=== PATIENT | male | born 1970 | race Caucasian/White ===

== ENCOUNTER 2016-11-04 15:56 | Inpatient (IN) | payer MEDICAID ==
[~2016-11-04] VITALS: Ht 160 cm; Wt 64.4 kg
[2016-11-04 16:09] VITALS: BP 108/65; PULSE 82; RESP 16; TEMP 98; O2SAT 97
[2016-11-04] MEDS ORDERED: NACL 0.9% 1,000 ML IV ONE (16:30)
--- NOTE | 2016-11-04 16:30 | NUR ---
PT BROUGHT HERE FROM [facility] FOR MALFUNCTIONING GT. NO REDNESS NOTED AROUND GT SITE. PT NON VERBAL WITH A TRACH AND 02 2L VIA TRACH. NO DISTRESS. PT EXTREMITIES RIGID. FAMILY WITH PT.
[2016-11-04] MEDS ORDERED: GASTROGRAFIN 120 ML ONE (16:35)
[2016-11-04 16:37] LABS: BASOPHILS % (AUTO) 0.6 % (0.0-2.0); EOSINOPHILS # (AUTO) 0.1 K/uL (0.0-0.4); EOSINOPHILS % (AUTO) 4.3 % (0.0-4.0); HEMATOCRIT 30.7 % (36-54); HEMOGLOBIN 9.4 g/dL (14.0-18.0); LYMPHOCYTES # (AUTO) 0.3 K/uL (1.0-5.5); LYMPHOCYTES % (AUTO) 11.2 % (20.5-51.5); MEAN CORPUSCULAR HEMOGLOBIN 27 pg (27-31); MEAN CORPUSCULAR HGB CONC 31 % (32-36); MEAN CORPUSCULAR VOLUME 88 fL (79.0-98.0); MONOCYTES # (AUTO) 0.2 K/uL (0.0-1.0); MONOCYTES % (AUTO) 8.5 % (1.7-9.3); NEUTROPHILS # (AUTO) 2.1 K/uL (1.8-7.7); NEUTROPHILS % (AUTO) 75.4 % (40.0-70.0); RED CELL DISTRIBUTION WIDTH 19.7 % (9.0-15.0)
--- NOTE | 2016-11-04 16:50 | NUR ---
JT IRRIGATED WITH WATER AND LEAKING NOTED AROUND SKIN. ER MADE AWARE.
[2016-11-04 16:56] LABS: CALCIUM 8.5 mg/dL (8.4-11.0); CREATININE 0.45 mg/dL (0.55-1.30); POTASSIUM 3.7 mmol/L (3.5-5.1)
--- NOTE | 2016-11-04 17:00 | NUR ---
20G IV STARTED TO LEFT FOREARM. IVF STARTED.
[2016-11-04 17:04] LABS: PLATELET COUNT (AUTO) 43 K/uL (130-430)
[2016-11-04 17:05] LABS: WHITE BLOOD COUNT (AUTO) 2.7 K/uL (4.8-10.8)
[2016-11-04 17:07] LABS: INR 1.2 (0.80-1.20); PROTHROMBIN TIME 12.8 SECS (9.5-12.5)
[2016-11-04] MEDS ORDERED: NACL 0.9% 2,000 ML IV ONE (17:15)
[2016-11-04 17:17] LABS: ALBUMIN 2.1 g/dL (3.4-4.8); TOTAL BILIRUBIN 0.7 mg/dL (0.0-1.0); TOTAL PROTEIN, SERUM 8.2 g/dL (6.4-8.3)
--- NOTE | 2016-11-04 18:25 | NUR ---
PT TRANSFERED TO ROOM [facility] VIA AVILA BOO. REPORT GIVEN TO KAREN. Addendum: 11/04/16 at 2021 by KASHMIR THE ONLY BELONGING THE PT HAS IS A SMALL PILLOW.
--- NOTE | 2016-11-04 18:45 | NUR ---
ADMISSION NOTE Received patient from ER via rosa, received report from juan JONES. Patient admitted with diagnosis of dehydration, hypernatremia. Patient oriented to hospital routine, call light, toileting and safety-patien.
--- NOTE | 2016-11-04 18:48 | NUR ---
CONSULTATION PAGED REASON FOR CONSULTATION:GT MALFUNCTION WAS CONSULT CALLED?Y PERSON WHO WAS NOTIFIED:MICHAEL CONSULTING PHYSICIAN:SACHA RAYMUNDO BOTTOM SCRUBBER SPECIALTY:SURGEON BOTTOM SCRUBBER PHONE NUMBER:[phone]
[2016-11-04 19:00] VITALS: PULSE 90; RESP 18; TEMP 97.2; O2SAT 92
[2016-11-04] MEDS: D5LR 1,000 ML IV SCH (19:45)
[2016-11-04 20:00] VITALS: BP 115/70; PULSE 90; RESP 18; TEMP 97.6; O2SAT 94
--- NOTE | 2016-11-04 20:00 | NUR ---
Initial Notes and MD communication Received patient from Rito, admission nurse, patient resting in bed, awake, nonverbal, confused, family at bedside. Patient appears in no acute distress or pain. Patient has trach, breathing even and unlabored on 2L via T-bar. IV site to left forearm #20 from ER, patent/clean/dry. J-tube noted to have been removed, laying at bedside. Dressing applied over abdominal opening, minimal drainage noted. Skin tears noted to sacral, left leg, and right back, photos taken and charted. Incontinence care provided, patient repositioned for comfort. Educated family on use of call light and fall precautions, all verbalized understanding, patient unable. Call light in hand, will continue to monitor. Spoke with Dr. Steiner on phone, updated MD on patient's background and status. Made MD aware that J-tube is removed, dressing applied. MD will see patient in the morning.
[2016-11-04] MEDS ORDERED: PHYTONADIONE 10 MG/ML AMP SUBCUT ONE (21:00)
[2016-11-04] MEDS ORDERED: levETIRAcetam 500 MG in NS 100 ML IV SCH (21:00)
[2016-11-04] MEDS ORDERED: DEXTROSE 50% JECT 50 ML DISP.SYRIN IVP PRN (21:00)
[2016-11-04] MEDS ORDERED: LORazepam 2 MG/ML VIAL IVP PRN (21:00)
[2016-11-04] MEDS ORDERED: INSULIN REGULAR, HUMAN 100 UNITS/ML, 10 ML VIAL (novoLIN R) SUBCUT PRN (21:00)
--- NOTE | 2016-11-04 21:00 | NUR ---
Seizure Precautions Side rails padded.
[2016-11-04] MEDS ORDERED: hydrALAZINE HCL 20 MG/ML VIAL IVP PRN (21:15)
[2016-11-04] MEDS ORDERED: levETIRAcetam 1,000 MG in NS 100 ML IV ONE (21:30)
--- NOTE | 2016-11-04 22:00 | NUR ---
Rounds Patient resting in bed, family at bedside. No change in patient's mentation. No acute distress or pain noted. IV site patent/clean/dry. Patient repositioned for comfort. Needs addressed. Call light in hand, will continue to monitor. Dr. Rodrigues saw patient recently, made aware that patient no longer has j-tube, MD said he was aware.
[2016-11-04 23:11] VITALS: BP 118/60; PULSE 79
[2016-11-04 23:27] VITALS: BP 104/63; PULSE 86; RESP 20; TEMP 98.2; O2SAT 97
--- NOTE | 2016-11-05 | NUR ---
Rounds Patient resting in bed with eyes closed. No acute distress noted, breathing even and unlabored. IV site patent/clean/dry. Call light in hand, fall precautions in place. Will continue to monitor.
--- NOTE | 2016-11-05 02:00 | NUR ---
Rounds Patient resting in bed with eyes open. No distress noted, breathing even and unlabored. IV site patent/clean/dry. Repositioned for comfort. Call light in hand, will continue to monitor.
[2016-11-05] MEDS: D5LR 1,000 ML IV SCH ×2 (02:31→08:57)
[2016-11-05] MEDS ORDERED: NOR10 GT (03:38)
[2016-11-05] MEDS ORDERED: TERA10CA47 GT (03:38)
[2016-11-05] MEDS ORDERED: HEPA500014 SUBCUT (03:38)
[2016-11-05] MEDS ORDERED: GABA-531 GT (03:38)
[2016-11-05] MEDS ORDERED: CHLO473M5 MM (03:38)
[2016-11-05] MEDS ORDERED: FAMO40TA7 GT (03:38)
[2016-11-05] MEDS ORDERED: LACO200T2 GT (03:38)
[2016-11-05] MEDS ORDERED: LEVO100T9 GT (03:38)
[2016-11-05] MEDS ORDERED: THIA50TA2 GT (03:38)
[2016-11-05] MEDS ORDERED: LEVE1000 PO (03:38)
--- NOTE | 2016-11-05 04:00 | NUR ---
Rounds Patient resting in bed, awake. No acute distress noted, breathing even and unlabored. IV site patent/clean/dry. Incontinence care provided, patient repositioned for comfort. Call light in hand, fall precautions in place. Will continue to monitor.
[2016-11-05 04:20] VITALS: BP 111/57; PULSE 97; RESP 18; TEMP 98.9; O2SAT 94
--- NOTE | 2016-11-05 06:27 | NUR ---
Closing Notes Patient resting in bed, awake. No change in mentation. Patient in no acute distress. Breathing even and unlabored on 2L via T-bar. IV site patent/clean/dry. Seizure precautions in place. Needs addressed throughout shift. Call light in hand, fall precautions in place. Will continue to monitor for changes and safety, and endorse all patient care/needs to oncoming nurse.
[2016-11-05 07:06] LABS: BASOPHILS % (AUTO) 0.3 % (0.0-2.0); EOSINOPHILS # (AUTO) 0.1 K/uL (0.0-0.4); EOSINOPHILS % (AUTO) 5.3 % (0.0-4.0); HEMATOCRIT 30.8 % (36-54); HEMOGLOBIN 9.6 g/dL (14.0-18.0); LYMPHOCYTES # (AUTO) 0.4 K/uL (1.0-5.5); MEAN CORPUSCULAR HEMOGLOBIN 27 pg (27-31); MEAN CORPUSCULAR HGB CONC 31 % (32-36); MEAN CORPUSCULAR VOLUME 88 fL (79.0-98.0); MONOCYTES # (AUTO) 0.2 K/uL (0.0-1.0); MONOCYTES % (AUTO) 8.4 % (1.7-9.3); NEUTROPHILS # (AUTO) 1.9 K/uL (1.8-7.7); PLATELET COUNT (AUTO) 57 K/uL (130-430); RED BLOOD CELL COUNT(AUTO) 3.49 MIL/uL (4.2-6.2); RED CELL DISTRIBUTION WIDTH 20.6 % (9.0-15.0); WHITE BLOOD COUNT (AUTO) 2.6 K/uL (4.8-10.8)
[2016-11-05 07:32] LABS: INR 1.1 (0.80-1.20); PROTHROMBIN TIME 12.4 SECS (9.5-12.5)
[2016-11-05 07:44] LABS: ALBUMIN 2.1 g/dL (3.4-4.8); CALCIUM 8.5 mg/dL (8.4-11.0); CREATININE 0.51 mg/dL (0.55-1.30); POTASSIUM 3.3 mmol/L (3.5-5.1); THYROID STIMULATING HORMONE 3.96 uIu/mL (0.34-4.82); TOTAL BILIRUBIN 0.9 mg/dL (0.0-1.0); TOTAL PROTEIN, SERUM 7.9 g/dL (6.4-8.3)
[2016-11-05 07:57] LABS: IRON (SERUM) 32 mcg/dL (59-158); TOTAL IRON BIND. CAPACITY 256 ug/dL (250-450)
[2016-11-05 08:00] VITALS: BP 122/69; PULSE 106; RESP 36; TEMP 99; O2SAT 93
--- NOTE | 2016-11-05 08:00 | NUR ---
RN NOTES PT SEEN IN BED, NO SOB, NO DISTRESS, PT TACHYPNEIC AT 36, NO S/SX PAIN. BM NOTED AND CLEAN AND CHANGED. YELLOW URINE NOTED. NO G-TUBE, L ARM SWOLLEN BUT IV FLUSHED GOOD AND WITH GOOD BLOOD RETURN.
[2016-11-05] MEDS: levETIRAcetam 1,000 MG in NS 100 ML IV SCH ×2 (08:56→21:43)
--- NOTE | 2016-11-05 10:00 | NUR ---
NOTES PT IN BED, FAMILY AT BEDSIDE. SUNCTION VIA TRACH DUE TO SECRETION, NO DISTRESS, NO S/SX PAIN.
--- NOTE | 2016-11-05 10:15 | NUR ---
Nutrition Update Tejas Scale 11 noted. Pt admitted for dehydration, hypernatremia. Diet: NPO BMI: 25.3 kg/m2 RD to follow per nutrition care standards.
--- NOTE | 2016-11-05 10:26 | NUR ---
Consult Called Reason for consultation: GTUBE DISPLACEMENT Was consult called: Y Person who was notified: Aleta Consulting Physician: JESUS ALBERTO VILLALPANDO MD ORDER BY: VERONICA COATES MD
[2016-11-05] MEDS ORDERED: CEFAZOLIN 1 GM IVPB PREMIX 50 ML IV ONE (11:30)
--- NOTE | 2016-11-05 12:00 | NUR ---
NOTES: PT IN BED DR VILLALPANDO SEEN PT AND CHECKED G-TUBE SITE, MD UNABLE INSERT G-TUBE. PT IS STABLE. NO S/SX PAIN. NO DISTRESS
[2016-11-05 12:15] VITALS: BP 129/75; PULSE 117; RESP 19; TEMP 98.6; O2SAT 96
[2016-11-05] MEDS ORDERED: MVI 10 ML in D5LR 1,000 ML IV SCH (12:45)
[2016-11-05] MEDS ORDERED: POTASSIUM CHLORIDE 40 MEQ, LIDOCAINE JECT 2% PF 100 MG 50 MG in NS 250 ML IV ONE (13:30)
--- NOTE | 2016-11-05 14:20 | NUR ---
PT INSERTED ON R UA. PT TOLERATED WELL. NO BLEEDING NOTED. 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 Addendum: 11/05/16 at 1946 by Sarath Cooper RN FIRST SENTENCE SHOULD READ" PICC INSERTED ON R UA."
--- NOTE | 2016-11-05 14:21 | NUR ---
DC PLANNING:S/W the pt.'s sister, Dorinda at bedside. She requested transferring the pt.to [facility] in [place] instead of [facility]. This dues to [facility] is too far for family home. His father could not see the pt. as often. [facility] is about 10 mins from home. Dorinda made aware that the pt. may have to return back to [facility] if [facility] is not acceptting, the pt.[facility]# [phone] fax#[phone] address:[address] [place], [place] [id number]. A call to [facility] and spoke with Leora , admitting dept stated" she remembered the pt.and requested the referral faxed to her. Also mentionning that there is no bed in [facility] today but might be next week.
--- NOTE | 2016-11-05 14:56 | NUR ---
Consult called Reason for consultation: RF person who was notified: Stefania Consulting Physician: Sally Marshall Order by: Mariposa Rodrigues MD
[2016-11-05] MEDS: SOD FERRIC GLUC COMPLEX/SUC 125 MG in NS 100 ML IV SCH (16:00)
--- NOTE | 2016-11-05 16:00 | NUR ---
PT MEDICATIONS GIVEN VIA PIC, PT SUCTION AND ORAL CARE DONE. FAMILY AT BEDSIDE.
[2016-11-05 16:56] VITALS: BP 115/63; PULSE 104; RESP 18; TEMP 99.4; O2SAT 96
[2016-11-05] MEDS: MVI 10 ML in D5LR 1,000 ML IV SCH (17:11)
--- NOTE | 2016-11-05 18:00 | NUR ---
PT IN BED, NO SOB, NO DISTRESS, NO S/SX PAIN. IV FLUID RUNNING WELL.
--- NOTE | 2016-11-05 20:00 | NUR ---
OPENING ASSESSMENT PT. NO RESPONSE TO VERBAL COMMAND. NO GRIMACING. NO PAIN NOTED. ON O2 TO TRACH T-BAR 2 LITERS. 02 SAT 96%. NO SOB NOTED. SUCTIONING MODERATE AMOUNTS OF THICK WHITE SECRETIONS.. HAS PICC LINE TO SERGIO. PATENT. SITE IS CLEAR. INCONTINENT OF STOOL AND URINE. NO DISTRESS NOTED @ THIS TIME.
[2016-11-05 20:10] VITALS: BP 125/79; PULSE 100; RESP 18; TEMP 99.9; O2SAT 96
--- NOTE | 2016-11-05 21:00 | NUR ---
BLOOD SUGAR 134 NO COVERAGE REQUIRED.
--- NOTE | 2016-11-05 22:00 | NUR ---
LAB. CALLED. STATED PATIENT HAS POSITIVE ANTIBODIES BLOOD. IS ORDERING PLATELETS DUE @ 0600.
[2016-11-05 23:46] VITALS: BP 133/75; PULSE 94; RESP 20; TEMP 98.6; O2SAT 94
--- NOTE | 2016-11-06 00:05 | NUR ---
NOTES PATIENT SUCTIONS MODERATE AMOUNTS OF THICK BLOOD TINGED SECRETIONS VIA. TRACH
[2016-11-06] MEDS: MVI 10 ML in D5LR 1,000 ML IV SCH ×2 (01:11→21:31)
--- NOTE | 2016-11-06 03:10 | NUR ---
NOTES C-DIFF SENT TO LAB. RE. TO DIARRHEA. MRSA NARES ALSO SENT TO LAB.
[2016-11-06 03:49] VITALS: BP 128/72; PULSE 102; RESP 20; TEMP 99.4; O2SAT 94
--- NOTE | 2016-11-06 05:00 | NUR ---
CHG BATH LOOSE STOOL, BATH AND LINEN CHANGED.
--- NOTE | 2016-11-06 06:00 | NUR ---
PLATES PLATES GIVEN ORDERED. NO ADVERSE REACTION NOTED.
--- NOTE | 2016-11-06 06:30 | NUR ---
CLOSING NOTES SUCTIONED MODERATE AMOUNTS OF THICK BROWN SECRETIONS VIA. TRACH. CONTINUE ON T-BAR 2LITER. NO DISTRESS NOTED @ THIS TIME.
[2016-11-06 07:14] LABS: BASOPHILS % (AUTO) 0.4 % (0.0-2.0); EOSINOPHILS # (AUTO) 0.1 K/uL (0.0-0.4); EOSINOPHILS % (AUTO) 4.8 % (0.0-4.0); HEMATOCRIT 31.7 % (36-54); LYMPHOCYTES # (AUTO) 0.6 K/uL (1.0-5.5); LYMPHOCYTES % (AUTO) 20.5 % (20.5-51.5); MEAN CORPUSCULAR HEMOGLOBIN 28 pg (27-31); MEAN CORPUSCULAR HGB CONC 32 % (32-36); MEAN CORPUSCULAR VOLUME 88 fL (79.0-98.0); MONOCYTES # (AUTO) 0.3 K/uL (0.0-1.0); MONOCYTES % (AUTO) 8.9 % (1.7-9.3); NEUTROPHILS # (AUTO) 1.9 K/uL (1.8-7.7); PLATELET COUNT (AUTO) 55 K/uL (130-430); RED BLOOD CELL COUNT(AUTO) 3.62 MIL/uL (4.2-6.2); RED CELL DISTRIBUTION WIDTH 20.1 % (9.0-15.0); WHITE BLOOD COUNT (AUTO) 2.9 K/uL (4.8-10.8)
[2016-11-06 07:27] LABS: INR 1.2 (0.80-1.20); PROTHROMBIN TIME 12.7 SECS (9.5-12.5)
--- NOTE | 2016-11-06 07:40 | NUR ---
AM ROUNDS, CHANGE OF SHIFT pt. awake, non-verbal,unable to follow commands, pt. with trach on T-bar @ 2l O2, HOB elevated. IVF via rt. forearm with PICC line double lumen . pt. incontinent of urine and stool.call light within reach.
[2016-11-06 07:46] LABS: ALBUMIN 2.2 g/dL (3.4-4.8); CALCIUM 8.4 mg/dL (8.4-11.0); CREATININE 0.5 mg/dL (0.55-1.30); POTASSIUM 3.8 mmol/L (3.5-5.1); TOTAL BILIRUBIN 1.1 mg/dL (0.0-1.0); TOTAL PROTEIN, SERUM 8.2 g/dL (6.4-8.3)
[2016-11-06 08:30] VITALS: BP 129/71; PULSE 93; RESP 24; TEMP 99.1; O2SAT 99
[2016-11-06] MEDS: levETIRAcetam 1,000 MG in NS 100 ML IV SCH ×2 (09:08→21:05)
--- NOTE | 2016-11-06 09:22 | NUR ---
scheduled med given. suctioned via trach.
--- NOTE | 2016-11-06 10:30 | NUR ---
DISCHARGE PLANNING Called [facility] [phone] spoke with Baylee in admitting facility unable to accept patient due to facility being full.
--- NOTE | 2016-11-06 11:00 | NUR ---
pt. checked, condition unchanged.
[2016-11-06] MEDS ORDERED: CEFAZOLIN 1 GM IVPB PREMIX 50 ML IV ONE (11:30)
[2016-11-06 11:39] LABS: NEUTROPHILS % (AUTO) 65.4 % (40.0-70.0)
[2016-11-06] MEDS: SOD FERRIC GLUC COMPLEX/SUC 125 MG in NS 100 ML IV SCH (12:55)
[2016-11-06 13:06] VITALS: BP 117/78; PULSE 97; RESP 18; TEMP 99; O2SAT 97
--- NOTE | 2016-11-06 13:31 | NUR ---
pt. sleeping when made rounds.
[2016-11-06 14:01] VITALS: Ht 160 cm; Wt 64.4 kg
--- NOTE | 2016-11-06 14:21 | NUR ---
NPO: schedule for PEG placement this afternoon, IVF infusing.
--- NOTE | 2016-11-06 15:23 | NUR ---
pt.transferred to air loss mattress with 2 GAGE DESIGNER , Stephie and myself. checked coccyx area with little patches of skin excoriation on rt.side, Z-guard cream applied, pt. repositioned and suctioned via trach.noted dressing on left lower leg and left Addendum: 11/06/16 at 1527 by Randi Rosales RN left hand.
--- NOTE | 2016-11-06 15:27 | NUR ---
PEG PLACEMENT: DR ALVARADO CAME AND TIME OUT DONE AT BEDSIDE. VERSED 0.5MG IVP GIVEN.VITAL SIGNS MONITORED.STABLE.
--- NOTE | 2016-11-06 15:40 | NUR ---
END TIME: PEG PLACEMENT UNSUCCESSFUL PER DR ALVARADO. DR ALVARADO SPOKE TO DAUGHTER FERNANDA AT BEDSIDE AND EXPLAINED WHY PEG WAS UNSUCCESSFUL. VITAL SIGNS MONITORED,WITHIN NORMAL LIMIT. CONTINUE TO MONITOR.
[2016-11-06 16:02] LABS: FOLATE (FOLIC ACID) 11.9 ng/mL (>3.0)
[2016-11-06] MEDS ORDERED: fentaNYL CITRATE/PF 100 MCG/2 ML AMP ONE (16:30)
--- NOTE | 2016-11-06 16:30 | NUR ---
TEJAS SCALE EVALUATION: Patient evaluated for a low Tejas score of 10. Patient was awake, alert, non-verbal, non-responsive to verbal commands, and received in a [place] bed with an Atmos-Air 9000 mattress. Patient is unable to turn independently. Skin is fair; Buttocks have redness from IAD; Closed bulla present on left foot and left thigh. Recommend reposition patient side to side only every 2 hours with pillow support and off-load pressure areas with pillows for pressure re-distribution. Elevate, off-load and float bilateral heels with pillows. Use moisture barrier cream on buttocks and other moisture susceptible areas QID and as needed for soiling. Perform skin care and monitor skin integrity Q shift. Place patient on a low air-loss mattress.
[2016-11-06] MEDS ORDERED: MIDAZOLAM HCL 5 MG/5 ML VIAL ONE (16:31)
[2016-11-06 17:15] VITALS: BP 124/71; PULSE 91; RESP 18; TEMP 99; O2SAT 97
--- NOTE | 2016-11-06 18:30 | NUR ---
condition unchanged. IVF infusing, trach intact on T-Bar, suction prn. repositioned every 2 hours. nurse Stephie will endorse pt. on change of shift.
[2016-11-06 20:00] VITALS: BP 125/77; PULSE 83; RESP 19; TEMP 97.5; O2SAT 96
--- NOTE | 2016-11-06 20:00 | NUR ---
PM Shift Assessment Received patient lying on low air loss mattress, non-verbal but tracks with eyes, no acute respiratory distress noted. Patient noted with trach to T-bar at 2L/min and tolerating well, O2 saturation 96%. Assessment complete, vital signs stable. SERGIO noted with PICC line, flushes well, dressing clean dry and intact, no redness or swelling noted. Seizure pads noted to bilateral side rails for safety. Bilateral heel lift boots in place. Sacral redness noted, patient repositioned with pillow support. Multiple blisters noted, see assessment documentation. Plan of care updated on board, will reinforce with family when at bedside. Call light is within reach with soft music for comfort. All fall and safety precautions in place, will continue to monitor closely for change in patient status.
--- NOTE | 2016-11-06 22:18 | NUR ---
RN Rounds Patient is resting quietly in bed, no acute distress noted, tolerating T-bar at 2L/min well. Patient was cleaned and repositioned in bed with pillow support. Oral care provided for comfort. Scheduled medications administered as ordered per MD. Call light is within reach with soft music for audio stimulation. All fall and safety precautions in place, will continue to monitor closely.
[2016-11-07] VITALS (13 sets, daily range): BP systolic 120–142; BP diastolic 73–88; PULSE 83–112; RESP 16–22; TEMP 96.8–98.1; O2SAT 94–99
--- NOTE | 2016-11-07 00:08 | NUR ---
paged for Dr Rodrigues, dialed . s/w Reji.
--- NOTE | 2016-11-07 00:10 | NUR ---
PAGED PAGED VERONICA CAMPBELL AT [phone] SPOKE WITH FIDENCIO.
--- NOTE | 2016-11-07 00:21 | NUR ---
RN Rounds Patient is resting quietly in bed, no acute respiratory distress noted, tolerating t-bar well. Patient was repositioned and made comfortable in bed, oral care provided for comfort. All fall and safety precautions in place, will continue to monitor closely.
--- NOTE | 2016-11-07 02:15 | NUR ---
RN Rounds Patient is resting quietly in bed with eyes closed, easily arousable, no acute respiratory distress noted. Tracheal suction provided. Patient made comfortable in bed. All fall and safety precautions in place, will continue to monitor closely.
--- NOTE | 2016-11-07 04:32 | NUR ---
RN Rounds Patient is resting quietly in bed with eyes closed, easily arousable, no acute respiratory distress noted. Patient sound congested with O2 saturation 88%. Tracheal suction provided, O2 saturation now 94%. Patient made comfortable in bed. All fall and safety precautions in place, will continue to monitor closely.
--- NOTE | 2016-11-07 06:15 | NUR ---
paged for Dr Steiner, dialed . s/w [facility].
--- NOTE | 2016-11-07 06:23 | NUR ---
MD Called Spoke with Dr Steiner informed him that patient does not have a UA, orders received for straight cath to collect UA. Also informed him that Patient does not have IV fluids and blood sugar is 91, new orders received for D5NS at 75mL/hour. Orders noted and to be carried out.
--- NOTE | 2016-11-07 06:50 | NUR ---
Platelet Transfusion Initiation Consent signed agreeing to administration of blood and blood products. Platelets sent from blood bank. Information on unit of platelets checked against patient wristband at bedside by two nurses. All information matches. Patient or responsible republican informed of potential complications associated with blood transfusion. Informed of possible transfusion reaction symptoms. Aware of need to notify nurse at once of itching, shortness of breath, flushing, feeling of impending doom, or other symptoms not previously present. Vital signs taken within 5 minutes prior to initiation of transfusion. RN will remain with patient for first 15 minutes of transfusion at which time vital signs will be re-assessed.
[2016-11-07] MEDS: D5NS 1,000 ML IV SCH (06:59)
--- NOTE | 2016-11-07 07:10 | NUR ---
Closing Notes Patient is resting quietly in bed, no acute respiratory distress or adverse transfusion reaction noted. Platelets infusing well to SERGIO PICC. Patient is stable, all needs met throughout shift. SBAR report was endorsed to AM nurse at bedside.
--- NOTE | 2016-11-07 07:15 | NUR ---
AM Rounds: Received pt sitting semi-fowlers in bed. No acute signs of distress noted. Trach and t-bar in place, pt saturating well 94% on 2L. Pt is alert and able to track with eyes at times, nonverbal at this time. IV PICC intact to RUE with no redness or swelling noted to site, infusing platelets well. Dressing to left abdomen CDI. Bilateral heel protectors in place. Call light in reach. Aspiration and pressure ulcer precautions in place. No other needs noted at this time. Pt remains NPO for GT placement today. Continue to monitor.
--- NOTE | 2016-11-07 07:20 | NUR ---
Nutrition Note Nutrition Consult (Tejas Score of 10) received 11/06/162041. Pt was seen and assessed by RD on 11/06/16. Please refer to Nutrition Assessment 11/06/[address] to continue to follow per nutrition care standards.
[2016-11-07 08:21] LABS: BILIRUBIN,URINE NEGATIVE (NEGATIVE); CLARITY/URINE CLEAR (CLEAR); COLOR,URINE YELLOW (YELLOW); GLUCOSE,URINE NEGATIVE (NEGATIVE); KETONES,URINE NEGATIVE (NEGATIVE); PROTEIN URINE NEGATIVE (NEGATIVE)
[2016-11-07 08:22] LABS: BLOOD, URINE NEGATIVE (NEGATIVE); LEUKOCYTE ESTERASE ,URINE NEGATIVE (NEGATIVE); NITRITE, URINE POSITIVE (NEGATIVE); UROBILINOGEN,URINE 0.2 (0.2-1.0)
[2016-11-07 08:23] LABS: BACTERIA,URINE FEW /HPF (None Seen); MUCUS,URINE 1+ /LPF (None Seen); RBC,URINE 0-3 /HPF (0-3); WBC,URINE 0-3 /HPF (0-3)
[2016-11-07] MEDS: PANTOPRAZOLE SODIUM 40 MG/VIAL (PROTONIX) IVP SCH (08:41)
[2016-11-07] MEDS: levETIRAcetam 1,000 MG in NS 100 ML IV SCH ×2 (08:42→21:33)
--- NOTE | 2016-11-07 09:10 | NUR ---
RN Rounds: AM meds given per MD order. No acute signs of distress noted. Pt tolerates well. Call light in reach. Continue to monitor.
--- NOTE | 2016-11-07 10:20 | NUR ---
Pt off to OR: Pt off to OR for procedure. No acute signs of distress noted.
[2016-11-07] MEDS ORDERED: NACL 0.9% 1,000 ML IV SCH (10:41)
[2016-11-07] MEDS ORDERED: ONDANSETRON HCL 4 MG/2 ML VIAL IVP PRN (10:45)
[2016-11-07] MEDS ORDERED: HYDROmorphone 1 MG INJ. 1 MG/ML AMPUL IVP PRN (10:45)
[2016-11-07] MEDS ORDERED: ePHEDrine sulfate 50 MG/ML VIAL IVP PRN (10:45)
[2016-11-07] MEDS ORDERED: MEPERIDINE HCL/PF 25 MG/ML DISP.SYRIN IVP PRN ×2 (10:45)
[2016-11-07] MEDS ORDERED: HYDROmorphone 2 MG/ML VIAL IVP PRN ×2 (10:45)
--- NOTE | 2016-11-07 13:05 | NUR ---
Pt Return from OR: Vent and trach in place. Pt tolerate settings well. No acute signs of distress noted. IV fluids infusing well to RUE. Dressing to abdomen CDI and GT clamped. Call light in reach. Page Dr. Marshall to make aware that pt is on a vent. Continue to monitor.
[2016-11-07] MEDS: SOD FERRIC GLUC COMPLEX/SUC 125 MG in NS 100 ML IV SCH (13:13)
--- NOTE | 2016-11-07 13:51 | NUR ---
Dr. Marshall: Dr. Marshall aware that pt is on a vent per Dr. Doherty for the next [address] Marshall states "Ok I'll come see him later."
[2016-11-07] MEDS ORDERED: ROCURONIUM BROMIDE 10 MG/ML (ZEMURON) ONE (14:00)
[2016-11-07] MEDS ORDERED: LR 1,000 ML IV.SOLN IV ONE (14:00)
[2016-11-07] MEDS ORDERED: NS IRRIG SOLN 1000 ML IR ONE (14:00)
[2016-11-07] MEDS ORDERED: SEVOFLURANE 15 MIN GAS INH ONE (14:00)
[2016-11-07] MEDS ORDERED: PROPOFOL 200MG/ 20ML VIAL (DIPRIVAN) IV ONE (14:00)
[2016-11-07] MEDS ORDERED: fentaNYL CITRATE/PF 100 MCG/2 ML AMP ONE (14:00)
[2016-11-07] MEDS ORDERED: CEFAZOLIN 2 GM IVPB PREMIX 50 ML IV ONE (14:00)
[2016-11-07] MEDS: MVI 10 ML in D5LR 1,000 ML IV SCH (14:54)
--- NOTE | 2016-11-07 15:13 | NUR ---
Rounds: Pt sitting semi-fowlers in bed. No acute signs of distress noted at this time. IV intact to RUE PICC infusing fluids well. Call light in reach. Aspiration precautions in place. Vent and trach in place, Dr. Marshall here to see patient. Continue to monitor pt closely.
[2016-11-07 16:58] LABS: IRON (SERUM) 229 mcg/dL (59-158); TOTAL IRON BIND. CAPACITY 218 ug/dL (250-450)
--- NOTE | 2016-11-07 17:09 | NUR ---
Rounds: Pt sitting semi-fowlers in bed. No acute signs of distress noted. IV intact to RUE with no redness or swelling noted to site. Call light in reach. Blood sugar checked and no coverage given. Continue to monitor.
--- NOTE | 2016-11-07 18:48 | NUR ---
Closing Note: Pt sitting semi-fowlers in bed. No acute signs of distress noted. GT in place and clamped. Bowel sounds present and hypoactive. Dressing to abdomen CDI. Trach and vent in place. Call light in reach. Aspiration, fall, and pressure ulcer precautions in place. No other needs noted at this time. Endorse plan of care to BOOGIE RN.
--- NOTE | 2016-11-07 19:30 | NUR ---
OPENING NOTES RE CEIVED REPORT AT BEDSIDE FROM DAY SHIFT NURSE. PATIENT IS SHOWING NO SIGNS OR SYMPTOMS OF DISTRESS. PATIENT IN SEMI-FOWLERS ON VENT. PICC LINE PATENT AND RUNNING. OXYGEN SATURATION IS 99%. SEIZURE PRECAUTIONS IN PLACE. BED [id number] POSITION. BED ALARM ON. WILL CONTINUE TO MONITOR FREQUENTLY.
--- NOTE | 2016-11-07 21:30 | NUR ---
NOTES PATIENT IS RESTING COMFORTABLY. NO SIGNS OR SYMPTOMS OF DISTRESS NOTED. VENTILATOR SETTINGS ARE AC 10, FIOS2, 45 TV 600ML, PEEP 5. IV IS PATENT. BED IN LOWEST POSITION, BED ALARM ON, CALL LIGHT WITHIN REACH. WILL CONTINUE TO MONITOR.
--- NOTE | 2016-11-07 23:30 | NUR ---
NOTES PATIENT CONTINUES TO REST PEACFULLY. NO SIGNS OR SYMPTOMS OF DISTRESS NOTED. IV PATENT, FLUIDS RUNNING, NO SIGNS OR SYMPTOMS OF INFILTRATION NOTED. BED IN LOWEST POSITION, BED ALARM ON, CALL LIGHT WITHIN REACH.
[2016-11-08] VITALS (11 sets, daily range): BP systolic 122–144; BP diastolic 81–92; PULSE 95–109; RESP 15–22; TEMP 97.4–98.3; O2SAT 96–99
--- NOTE | 2016-11-08 01:30 | NUR ---
NOTES PATIENT CONTINUES TO SLEEP COMFORTABLY. NO SIGNS OR SYMPTOMS OF DISTRESS NOTED. VENT SETTINGS CHECKED AND CONFIRMED. IV PATENT, FLUIDS RUNNING, NO SIGNS OR SYMPTOMS OF INFILTRATION NOTED. SEIZURE PRECAUTIONS IN PLACE. BED IN LOWEST POSITION, BED ALARM ON, CALL LIGHT WITHIN REACH.
[2016-11-08] MEDS: D5NS 1,000 ML IV SCH ×2 (02:23→09:10)
--- NOTE | 2016-11-08 06:38 | NUR ---
CLOSING NOTE PATIENT IS SLEEPING COMFORTABLY. NO SIGNS OR SYMPTOMS OF DISTRESS NOTED. VISIBLE RISE AND FALL OF CHEST. SEIZURE AND FALL PRECAUTIONS IN PLACE. IV PATENT, NO SIGNS OF INFILTRATION. BED IN LOWEST POSITION, BED ALARM ON, CALL LIGHT WITHIN REACH. WILL ENDORSE CARE TO DAY SHIFT NURSE.
--- NOTE | 2016-11-08 07:37 | NUR ---
AM Rounds: Received pt sitting semi-fowlers in bed. No acute signs of distress noted. IV intact to RUE PICC with no redness or swelling noted to site. GT clamped to abdomen. Vent and trach in place. Aspiration precautions in place. Continue to monitor.
[2016-11-08 07:45] LABS: ALBUMIN 2.1 g/dL (3.4-4.8); CALCIUM 8.1 mg/dL (8.4-11.0); CREATININE 0.5 mg/dL (0.55-1.30); POTASSIUM 3.2 mmol/L (3.5-5.1); TOTAL BILIRUBIN 1.6 mg/dL (0.0-1.0); TOTAL PROTEIN, SERUM 7.5 g/dL (6.4-8.3)
[2016-11-08 07:46] LABS: INR 1.3 (0.80-1.20)
[2016-11-08 08:19] LABS: BASOPHILS % (AUTO) 0.2 % (0.0-2.0); EOSINOPHILS # (AUTO) 0.2 K/uL (0.0-0.4); EOSINOPHILS % (AUTO) 4.7 % (0.0-4.0); HEMATOCRIT 32.3 % (36-54); HEMOGLOBIN 10.2 g/dL (14.0-18.0); LYMPHOCYTES # (AUTO) 0.4 K/uL (1.0-5.5); LYMPHOCYTES % (AUTO) 10.9 % (20.5-51.5); MEAN CORPUSCULAR HEMOGLOBIN 27 pg (27-31); MEAN CORPUSCULAR HGB CONC 32 % (32-36); MEAN CORPUSCULAR VOLUME 87 fL (79.0-98.0); MONOCYTES # (AUTO) 0.4 K/uL (0.0-1.0); MONOCYTES % (AUTO) 8.8 % (1.7-9.3); NEUTROPHILS # (AUTO) 3.1 K/uL (1.8-7.7); NEUTROPHILS % (AUTO) 75.4 % (40.0-70.0); PLATELET COUNT (AUTO) 74 K/uL (130-430); RED BLOOD CELL COUNT(AUTO) 3.71 MIL/uL (4.2-6.2); RED CELL DISTRIBUTION WIDTH 19.9 % (9.0-15.0); WHITE BLOOD COUNT (AUTO) 4.1 K/uL (4.8-10.8)
[2016-11-08] MEDS: PANTOPRAZOLE SODIUM 40 MG/VIAL (PROTONIX) IVP SCH (09:10)
[2016-11-08] MEDS: levETIRAcetam 1,000 MG in NS 100 ML IV SCH (09:10)
--- NOTE | 2016-11-08 09:11 | NUR ---
RN Rounds: AM meds given per MD order. Pt tolerates well at this time. IV intact and infusing fluids well. GT remains clamped. Dr. Ingram here to see patient, aware that tube feed has not been started, per Dr. Juan Jose Steiner needs to order tube feeds. Will follow up with Dr. Steiner today.
--- NOTE | 2016-11-08 11:11 | NUR ---
CALLED [facility] CALL[facility], DR HUI, RE: IF PT CAN BE REMOVED FROM VENT. SPOKE TO MACO
--- NOTE | 2016-11-08 11:23 | NUR ---
Rounds: Pt sitting semi-fowlers in bed. No acute signs of distress noted. Blood sugar checked and no coverage given. Dr. Marshall called, ok to d/c vent and put patient back on 2L via t-bar as long as patient tolerates. RT Salome made aware, RT at bedside to D/C vent.
[2016-11-08 12:06] LABS: FERRITIN 148 ng/mL (30-400); HEPATITIS A AB, IgM Negative (Negative); HEPATITIS B CORE AB, IgM Negative (Negative); HEPATITIS B SURFACE AG Negative (Negative)
--- NOTE | 2016-11-08 12:22 | NUR ---
CALLED ATTENDING MD DR COATES, RE: WHAT KIND OF GT FEEDING. SPOKE TO ASIF
[2016-11-08 13:06] LABS: AFP, TUMOR MARKER 2.6 ng/mL (0.0-8.3)
--- NOTE | 2016-11-08 13:37 | NUR ---
GT Feed Started/Dr. Steiner Here: Dr. Steiner here to see patient, ok to use GT for feeding. Dressing to abdomen remains clean and intact. IV intact to RUE PICC. No acute signs of distress noted. GT feed started. No residual noted. Placement checked via auscultation and aspiration of gastric contents (clear in color). No acute signs of bleeding. Start Diabetasourace AC @ 30mL/hr per MD order. Pt saturating well 94% on 2L via T-bar. Call light in reach. Aspiration precautions in place. Continue to monitor pt closely.
[2016-11-08] MEDS ORDERED: 0.45% NACL 1,000 ML IV SCH (14:30)
[2016-11-08] MEDS ORDERED: POTASSIUM CHLORIDE 20 MEQ/PKT PACKET PO ONE ×2 (14:30→16:00)
--- NOTE | 2016-11-08 14:35 | NUR ---
Nutrition F/U Nutritional Screening High Risk Screening Admitting Diagnosis Dehydration, severe protein malnutrition, G-tube malfunction, hypernatremia Reviewed Pertinent Medical/Surgical Hx Medical Record Medical History Comment: Liver cirrhosis, traumatic brain injury, chronic encephalopathy, chronic respiratory failure w/trach, J-tube feeding, psoriasis per MD notes *note: pt is quadriplegic Subjective Information Pt seen resting in bed, trach to vent, no EN hung or infusing. Per RN, PEG placement was unsuccessful yesterday, but G-tube was successfully placed and she is awaiting MD's TF orders. Reported no planned procedures today; reported pt had BM yesterday but none so far today. I/Os (11/08/16): 1250/0 (+1250 ml[address] noted new TF order of Diabetisource AC at 30 ml/hr, increase to goal of 70 ml/hr. Current starting regimen will provide: 684 kcal/day, 43 gm protein, and 588 ml free water/day. This meets 43% of estimated energy needs and 55% of low end of estimated protein needs per day. Goal TF rate would provide 2016 kcal/day, 101 gm protein/day, and 1371 ml free water/day. This meets 127% of estimated energy needs and 129% of low end of estimated protein needs per day. Recommend TF regimen: Diabetisource AC at 50 ml/hr (goal rate), Prosource TID, Free Water Flush: 100 ml q6hr via G-tube. This would provide 1620 kcal/day, 117 gm protein/day, and 1379 ml free water/day. This would meet 102% of estimated energy needs and 91% of high end of estimated protein needs per day. RD awaiting call back from MD. Pt is not appropriate for nutrition education. Current Diet Order/Nutrition Support Diabetisource AC at 30 ml/hr, increase to goal of 70, Free Water Flush: 0 via G-tube Patient/Significant Other Unable To Verbalize Education Provided Not Indicated Pertinent Medications Reviewed Pertinent Labs Reviewed Height (Feet) 5 feet Height (Inches) 3.00 inches Weight (Pounds) 142 pounds (admission) 11/08/16: 237.5 lbs/108 kg (bedscale); unsure of accuracy Weight (Calculated Kilograms) 64.161563 kilograms Patient Weight 64.41 kg Body Mass Index 25.15 kg/m2 %IBW 115 Goodman/Adjusted Body Weight IBW: 124 lb (56 kg) Recent Weight Change Unknown Weight Status Appropriate Gastrointestinal Symptoms None Last BM RN reported 11/07/16 Difficulty With: Swallowing Chewing Food Allergies No - No known allergies per chart from [facility] Usual Diet At Home Glucerna 1.5 at 50 ml/hr x20 hrs, ProStat TID for 1 mo. (10/19-11/16) Skin Integrity Comment: Tejas score: 11. Per RN notes, L leg: blister: L wrist: blister; R back: blister: sacrum: redness w/ small scab/dry area Current % PO N/A Estimated Energy Expenditure (kcals/day) (modified) 1588 kcal/day (PSU 2003b equation for vent support) Estimated Protein Required (g/day) (modified) 78-128 gm/day (1.2-2 gm/kg CBW for critically ill on vent support) Estimated Fluid Required (l/day) 1.6-2 L/day (25-30 ml/kg CBW for maintenance) Problem/Etiology/Signs/Symptoms (modified) Inadequate nutritional intakes related to NPO status x1 day as evidenced by no current tube feeding order and 0 ml tube feeding intakes. *resolved Excessive expected EN intakes related to current EN order as evidenced by EN goal rate meeting 127% of estimated energy needs. Expected Outcomes/Goals * Monitor tolerance to EN w/ goal of pt meeting at least 50% of estimated nutritional needs, labs trending WNL, normal GI function, and skin integrity/weight maintenance Dietitian Recommendations * Consider TF regimen: Diabetisource AC at 50 ml/hr (goal rate), Prosource TID, Free Water Flush: 100 ml q6hr via G-tube This would provide 1620 kcal/day, 117 gm protein/day, and 1379 ml free water/day This would meet 102% of estimated energy needs and 91% of high end of estimated protein needs per day Follow Up High Risk: F/U in 2-3days Addendum: 11/08/16 at [address] MICHELLE spoke w/ Dr. Rodrigues who agreed with RD recommendations. MICHELLE placed new TF orders per MD.
[2016-11-08] MEDS: MVI 10 ML in D5LR 1,000 ML IV SCH (14:58)
--- NOTE | 2016-11-08 15:37 | NUR ---
Rounds/Dr. Rodrigues Here: Dr. Rodrigues here to see patient, per MD read to send pt back to SNF. GT feed infusing well at 40mL/hr with no residual noted. Dressing to abdomen remains clean and intact. Aspiration precautions in place. Call light in reach. Continue to monitor.
--- NOTE | 2016-11-08 16:13 | NUR ---
DC PLANNING: RECEIVED DC ORDER FROM DR. COATES. CALLED /FAXED TO [facility]) TEL#[phone]; FAX# [phone], HE GAVE ROOM # 31 C. ARRANGED TRANSPORTATION VIA [facility] TEL# , CONVENTIONS ASSISTANT TIME 1800. SHAKA JONES NOTIFIED, PACKET AT THE NURSE'S STATION.
--- NOTE | 2016-11-08 18:25 | NUR ---
PT TRANSFERRED Report given to Michael at [facility]. Transfer packet with Transfer Orders and Medication Reconciliation form given to EMT with report. Exitcare provided. [facility] ID band removed, replaced with ID band with pt's name and . PICC to RUE IV catheter intact, GT clamped to abdomen, and trach in place. All belongings sent with patient. Patient left floor via gurney escorted by EMT in no distress.
[2016-11-09 15:55] LABS: ALPHA-1-ANTITRYPSIN, S 190 mg/dL (90-200)
[2016-11-10 13:12] LABS: LIVER-KIDNEY MICROSOMAL AB 3.5 Units (0.0-20.0)
[2016-11-10 21:58] LABS: ANTI-SMOOTH MUSCLE AB 60 Units (0-19)
[2016-11-11 01:07] LABS: CERULOPLASMIN 27.4 mg/dL (16.0-31.0)
[2016-11-11] MEDS ORDERED: GASTROGRAFIN 120 ML ONE (08:37)
== END 2016-11-08 18:25 | DRG 252 ==
LOC: SED 15:56 → STU 17:40
PROVIDERS: ADMIT Internal Medicine; ATTEND Internal Medicine
PROC: B548ZZA Ultrasonography of Superior Vena Cava, Guidance (ICD-10-PCS; 2016-11-05)
PROC: 02HV33Z Insertion of Infusion Device into Superior Vena Cava, Percutaneous Approach (ICD-10-PCS; 2016-11-05)
PROC: 0DJ08ZZ Inspection of Upper Intestinal Tract, Via Natural or Artificial Opening Endoscopic (ICD-10-PCS; 2016-11-06)
PROC: 30233R1 Transfusion of Nonautologous Platelets into Peripheral Vein, Percutaneous Approach (ICD-10-PCS; 2016-11-06)
PROC: 0DH63UZ Insertion of Feeding Device into Stomach, Percutaneous Approach (ICD-10-PCS; 2016-11-07)
PROC: 5A1935Z Respiratory Ventilation, Less than 24 Consecutive Hours (ICD-10-PCS; principal; 2016-11-07 10:00)
DX: K94.23 Gastrostomy malfunction (principal); G93.41 Metabolic encephalopathy; E43 Unspecified severe protein-calorie malnutrition; G82.50 Quadriplegia, unspecified; E87.0 Hyperosmolality and hypernatremia; J96.10 Chronic respiratory failure, unspecified whether with hypoxia or hypercapnia; D61.818 Other pancytopenia; E86.0 Dehydration; L40.9 Psoriasis, unspecified; K74.60 Unspecified cirrhosis of liver; I10 Essential (primary) hypertension; K29.80 Duodenitis without bleeding; K31.89 Other diseases of stomach and duodenum; Y83.3 Surgical operation with formation of external stoma as the cause of abnormal reaction of the patient, or of later complication, without mention of misadventure at the time of the procedure; I85.00 Esophageal varices without bleeding; Z87.891 Personal history of nicotine dependence; Z87.820 Personal history of traumatic brain injury; Z93.0 Tracheostomy status; Z68.25 Body mass index [BMI] 25.0-25.9, adult
CPT/HCPCS: 36415; 71010; 76700-TC; 80048; 80053; 80074; 81000-TC; 82103; 82105; 82140-TC; 82390; 82607; 82728; 82746; 82962; 83516; 83540-TC; 83550-TC; 83605; 83735-TC; 84443-TC; 85025; 85610-TC; 85730-TC; 86376; 86870; 86886; 86900; 86901; 87070-TC; 87081; 87186-TC; 87205-TC; 87230-TC; 93005; 93971; 94002; 94003; 94760; 96360; 99285; C1751; C9113; J0690; J1815; J1953; J2060; J2250; J2704; J2916; J3010; J3430; J3480; J7030; J7040; J7042; J7050; J7120; P9034; Q9963

== ENCOUNTER 2016-11-09 00:50 | Inpatient (IN) | payer MEDICAID ==
[~2016-11-09] VITALS: Ht 167.6 cm; Wt 68.9 kg
[~2016-11-09 00:50] MED LIST: CHLO473M5 MM; FAMO40TA7 GT; GABA-531 GT; HEPA500014 SUBCUT; LACO200T2 GT; LEVE1000 PO; LEVO100T9 GT; NOR10 GT; TERA10CA47 GT; THIA50TA2 GT
--- NOTE | 2016-11-09 00:50 | NUR ---
Patient to ER bed 2 to gown for evaluation. Side rails up. Report given to Kaleigh JONES.
--- NOTE | 2016-11-09 01:00 | NUR ---
Patient sent to ER from [facility] for low O2 sat. Patient is non-verbal, dows not respond to verbal or pain stimuli, bedbound, tracheostomy with Tbar, Gtube, incontinent. Patient has a large distended abdomen.
[2016-11-09 01:10] VITALS: BP 112/78; PULSE 86; RESP 18; TEMP 99; O2SAT 100
--- NOTE | 2016-11-09 01:12 | NUR ---
ER MD Hines at bedside for evaluation
[2016-11-09] MEDS ORDERED: NACL 0.9% 1,000 ML IV ONE (01:30)
--- NOTE | 2016-11-09 01:46 | NUR ---
# 16 FR Arzola catheter with use of sterile technique. Immediate return of dark reddish 400 cc urine noted. Bedside drainage bag placed below level of bladder. Urine sample collected and sent to lab. Pt tolerated procedure well. Patient unable to toilet self.
--- NOTE | 2016-11-09 02:00 | NUR ---
Research Nutritionist at bedside for blood draw.
[2016-11-09 02:02] LABS: ABG TOTAL HEMOGLOBIN 11.9 G/dL (12.0-18.0); BLOOD GAS BASE EXCESS -1.9 mmol/L (-3.0-3.0); BLOOD GAS PH 7.445 (7.350-7.450)
[2016-11-09 02:03] LABS: BLOOD GAS COHb% 1.1 % (0.5-1.5); BLOOD GAS HHB 13.1 % (0.0-6.0); BLOOD O2Hb% 85.2 % (94.0-97.0)
[2016-11-09] MEDS ORDERED: ONDANSETRON HCL 4 MG/2 ML VIAL IVP ONE (02:15)
[2016-11-09] MEDS ORDERED: PIPERACILLIN/TAZO 3.375 GM in NS 50 ML IV ONE (02:15)
[2016-11-09 02:18] LABS: CALCIUM 8.6 mg/dL (8.4-11.0); CREATININE 0.5 mg/dL (0.55-1.30); POTASSIUM 3.6 mmol/L (3.5-5.1)
[2016-11-09 02:23] LABS: INR 1.3 (0.80-1.20); PROTHROMBIN TIME 13.7 SECS (9.5-12.5)
[2016-11-09 02:27] LABS: ALBUMIN 2.3 g/dL (3.4-4.8); TOTAL BILIRUBIN 2.6 mg/dL (0.0-1.0)
--- NOTE | 2016-11-09 02:30 | NUR ---
PICC lines desinfected and flushed with 2x10cc NS. Both lines patent.
[2016-11-09 02:57] LABS: BASOPHILS # (AUTO) 0.1 K/uL (0.0-0.2); BASOPHILS % (AUTO) 0.9 % (0.0-2.0); EOSINOPHILS # (AUTO) 0.1 K/uL (0.0-0.4); EOSINOPHILS % (AUTO) 1.8 % (0.0-4.0); HEMATOCRIT 34.9 % (36-54); HEMOGLOBIN 11.2 g/dL (14.0-18.0); LYMPHOCYTES # (AUTO) 0.5 K/uL (1.0-5.5); LYMPHOCYTES % (AUTO) 7.3 % (20.5-51.5); MEAN CORPUSCULAR HEMOGLOBIN 28 pg (27-31); MEAN CORPUSCULAR HGB CONC 32 % (32-36); MEAN CORPUSCULAR VOLUME 87 fL (79.0-98.0); MONOCYTES # (AUTO) 0.3 K/uL (0.0-1.0); MONOCYTES % (AUTO) 4.9 % (1.7-9.3); NEUTROPHILS # (AUTO) 5.4 K/uL (1.8-7.7); NEUTROPHILS % (AUTO) 85.1 % (40.0-70.0); RED BLOOD CELL COUNT(AUTO) 3.99 MIL/uL (4.2-6.2); WHITE BLOOD COUNT (AUTO) 6.4 K/uL (4.8-10.8)
[2016-11-09] MEDS ORDERED: PIPERACILLIN/TAZOBACTAM 3.375 GM/VIAL (ZOSYN) IV ONE (03:02)
[2016-11-09 03:11] LABS: PLATELET COUNT (AUTO) 74 K/uL (130-430)
[2016-11-09] MEDS ORDERED: IPRATROPIUM/ALBUTEROL SULFATE 3 ML AMPUL.NEB INH SCH (03:45)
[2016-11-09] MEDS ORDERED: methylPREDNISolone SOD SUCC/PF 62.5 MG/ML VIAL IVP ONE (03:45)
[2016-11-09] MEDS ORDERED: PIPERACILLIN/TAZO 3.375 GM in NS 50 ML IV SCH (03:45)
[2016-11-09] MEDS ORDERED: methylPREDNISolone SOD SUCC/PF 62.5 MG/ML VIAL IVP SCH ×2 (03:45→13:00)
--- NOTE | 2016-11-09 04:00 | NUR ---
suctioned patient's trach with moderate amount of thick yellow sputum. pt tolerated well.
[2016-11-09] MEDS ORDERED: methylPREDNISolone SOD SUCC/PF 62.5 MG/ML VIAL ONE (04:52)
--- NOTE | 2016-11-09 05:35 | NUR ---
Pt transferred to [facility] via [facility] accompanied by RN and MT. placed on heart monitor for transport. placed in bed 116A, report given to Mariaa. Pt observed to be breathing rapidly. Pt's trach suctioned and moderate amount of yellow sputum observed. pt tolerated well and breathing returned WNL. Pt O2 sat 100% on 15L. PICC line patent with good flush and blood return. All care endorsed.
--- NOTE | 2016-11-09 05:36 | NUR ---
ADMISSION: The patient, MASOOD SHAW, 46 y/o, M admitted by VERONICA COATES MD, with diagnosis of aspiration pneumonia. Oriented to unit and room. Call clarke within reach. Primary nurse Mariaa MAN at bedside with Kimberli ARREOLA.
[2016-11-09 06:15] VITALS: BP 119/76; PULSE 70; RESP 20; TEMP 98.1; O2SAT 100
--- NOTE | 2016-11-09 06:15 | NUR ---
Admission Notes Pt is non verbal, obtunded, unable to track with eyes. Pt noted to have had a right craniotomy with 2 large dry scabs noted to top of right side of head close to incision. Pt noted to have heavy amounts of thick yellowish with blood stained secretions when suctioned thru the T bar, and oral suctioning also provided at this time. Pt has T bar with portex #8, on 15 L on T bar with O2 saturation of 100%. Multiple open blisters noted to left hand, and left lower extremity. Mid abdominal incision noted, and blood to j tube site with stitches. Unable to discuss poc with pt due to physical and cognitive limitations, no family available at beside at this time. VSS. Safety precautions in place with seizure pads for hx of craniotomy, bed in lowest, locked position, with bed alarm on, and air mattress. All needs met at this time. Pictures of open areas taken, and documented in chart. Pt given bed bath, and re positioned with pillows and heels floating. Call light in reach. Will continue to monitor.
[2016-11-09 06:22] VITALS: BP 117/76; PULSE 100
[2016-11-09 08:00] VITALS: BP_SYST 61; PULSE 90; RESP 20; TEMP 96.8; O2SAT 95
--- NOTE | 2016-11-09 08:00 | NUR ---
OPENING NOTE REPORT RECEIVED FROM CARD PUNCHER RN. PATIENT IS AWAKE, DOES NOT RESPOND TO VERBAL OR NOXIOUS STIMULI WITH PURPOSE. DOES NOT TRACK WITH EYES. PUPILS PERRL, WOUNDS TO BILATERAL HANDS. ON BLOW-BY O2 ON TRACHE, G TUBE INTACT, BLOODY SPUTUM SUCTIONED FROM TRACHE, BOWEL SOUNDS ACTIVE.
[2016-11-09] MEDS: IPRATROPIUM/ALBUTEROL SULFATE 3 ML AMPUL.NEB INH SCH ×5 (09:38→22:40)
[2016-11-09] MEDS: LACTOBACILLUS RHAMNOSUS GG 1 CAP CAPSULE PO SCH ×2 (09:54→21:47)
[2016-11-09] MEDS: PIPERACILLIN/TAZO 3.375 GM in NS 50 ML IV SCH ×3 (09:56→21:58)
--- NOTE | 2016-11-09 10:00 | NUR ---
PATIENT MEDICATED ORDERED. NO CHANGE IN STATUS
--- NOTE | 2016-11-09 11:00 | NUR ---
dr zarate in to see patient
[2016-11-09] MEDS: D5LR 1,000 ML IV SCH (12:15)
[2016-11-09] MEDS ORDERED: LORazepam 2 MG/ML VIAL IVP PRN (12:15)
[2016-11-09 12:54] VITALS: BP 102/66; PULSE 89; RESP 19; TEMP 96.2; O2SAT 100
--- NOTE | 2016-11-09 13:00 | NUR ---
PAT TAKEN FOR CT ABDOMEN/PELVIS. ON O2, ON MONITOR.
--- NOTE | 2016-11-09 14:00 | NUR ---
family remains at bedside. patient medicated per orders.
--- NOTE | 2016-11-09 15:00 | NUR ---
aspirated 160ml of yellow fluid from g tube. pt given breathing tx by respiratory, sputum collected for cultures.
--- NOTE | 2016-11-09 15:05 | NUR ---
GENERAL SURGEON DR FOSTER IS AWARE OF THE CONSULT, RE: ILEUS VS SBO
--- NOTE | 2016-11-09 15:07 | NUR ---
CALLED PULMO CONSULT TO DR HUI RE: RESPIRATORY FAILURE. SPOKE TO MONI
[2016-11-09] MEDS: HEPARIN SODIUM,PORCINE 5000 UNITS/ML VIAL SUBCUT SCH ×2 (15:18→21:56)
[2016-11-09] MEDS: GABAPENTIN 300 MG CAPSULE GT SCH ×2 (15:21→21:48)
--- NOTE | 2016-11-09 16:30 | NUR ---
patient neurologic status remains unchanged. towel rolled and placed behind head to prop in a way to keep pressure off of the right side.
[2016-11-09 16:39] VITALS: BP 134/74; PULSE 100; RESP 19; TEMP 97.1; O2SAT 98
--- NOTE | 2016-11-09 20:00 | NUR ---
PM assessment Pt eyes open. Non verbal. Pt on T-Bar 10L O2. 97% at the time. PICC noted on the right upper arm. Arm circumference 25cm clean and intact. IV fluids D5 LR at 100ml/hr. patent. No redness or swelling at site. Aspiration precaution 30 degrees HOB elevated. Provided oral care, suctioned large brown, thick. will provide oral care every four hours and as needed. Infusing Educated to use call light for assistance. verbalized understanding. call light within reach. will continue to monitor.
[2016-11-09] MEDS: levETIRAcetam 500 MG TABLET GT SCH (21:47)
[2016-11-09] MEDS: LACOSAMIDE 100 MG TABLET GT SCH (21:47)
[2016-11-09] MEDS: CHLORHEXIDINE GLUCONATE 15 ML/DOSE, 480 ML MM SCH (21:47)
[2016-11-09] MEDS: FAMOTIDINE 20 MG TABLET GT SCH (21:48)
[2016-11-09] MEDS: TERAZOSIN HCL 1 MG CAPSULE (HYTRIN) GT SCH (22:13)
--- NOTE | 2016-11-10 | NUR ---
Oral care provided, suctioned, large brown, thick output. comfort needs met. Applied z-guard on the sacrum and nahomy area. two person assist. Reposition on the left for comfort. call light in reach.
[2016-11-10 00:07] VITALS: BP 112/61; PULSE 127; RESP 20; TEMP 98.8; O2SAT 91
[2016-11-10] MEDS: IPRATROPIUM/ALBUTEROL SULFATE 3 ML AMPUL.NEB INH SCH ×6 (03:56→23:30)
[2016-11-10] MEDS: PIPERACILLIN/TAZO 3.375 GM in NS 50 ML IV SCH ×4 (03:59→20:29)
--- NOTE | 2016-11-10 04:00 | NUR ---
Note Oral care provided. repositioned on the left. HOB 30 degree for aspiration precaution. Heels positioned on pillow for skin precaution.
[2016-11-10 05:12] VITALS: BP 116/72; PULSE 92; RESP 18; TEMP 98.4; O2SAT 90
[2016-11-10] MEDS: GABAPENTIN 300 MG CAPSULE GT SCH ×3 (06:14→21:12)
[2016-11-10] MEDS: HEPARIN SODIUM,PORCINE 5000 UNITS/ML VIAL SUBCUT SCH ×3 (06:16→21:13)
[2016-11-10] MEDS: LEVOTHYROXINE SODIUM 0.1 MG TABLET GT SCH (06:24)
--- NOTE | 2016-11-10 06:45 | NUR ---
Closing note Pt eye closed. Awoke when x-ray taken. comfort shift met throughout the shift. hourly rounds done. T- bar was changed by the RT. Safety precaution in place. Bed in the lowest positioned, locked. HOB maintain at 30 degrees for aspiration precaution. Pt T-bar to trach on 10L o2 tolerating well. 100% spo2 noted. call light in reach.
[2016-11-10 07:03] LABS: HEMATOCRIT 28.1 % (36-54); HEMOGLOBIN 8.8 g/dL (14.0-18.0); MEAN CORPUSCULAR HEMOGLOBIN 28 pg (27-31); MEAN CORPUSCULAR HGB CONC 31 % (32-36); MEAN CORPUSCULAR VOLUME 88 fL (79.0-98.0); RED BLOOD CELL COUNT(AUTO) 3.18 MIL/uL (4.2-6.2); RED CELL DISTRIBUTION WIDTH 20.4 % (9.0-15.0); WHITE BLOOD COUNT (AUTO) 3.3 K/uL (4.8-10.8)
[2016-11-10 07:05] LABS: CALCIUM 8.2 mg/dL (8.4-11.0); CREATININE 0.52 mg/dL (0.55-1.30); POTASSIUM 3.3 mmol/L (3.5-5.1)
[2016-11-10 07:14] LABS: ALBUMIN 1.9 g/dL (3.4-4.8); TOTAL BILIRUBIN 1.7 mg/dL (0.0-1.0); TOTAL PROTEIN, SERUM 6.9 g/dL (6.4-8.3)
[2016-11-10 07:41] LABS: PLATELET COUNT (AUTO) 43 K/uL (130-430)
--- NOTE | 2016-11-10 08:00 | NUR ---
Initial Note Patient non-verbal, eyes open, does not track. Respirations even and unlabored on tbar. O2 saturation 98-100 %. No respiratory distress noted at this time. Oral care provided at this time. IV access noted and infusing per MD orders. G-tube clamped, at this time. Repositioned patient at this time. Bilateral heels elevated on pillows. Arms elevated to promote circulation. Fall and safety precautions in place. Bed in lowest and locked position.
--- NOTE | 2016-11-10 09:12 | NUR ---
Nutrition Update Tejas Scale 18 noted. Pt admitted for aspiration pneumonia. Diet: NPO BMI: 24.5 kg/m2 RD to follow per nutrition care standards. Addendum: 11/10/16 at [address] CORRECTION: Tejas Scale 8 noted.
[2016-11-10 09:35] LABS: ATYPICAL LYMPHOCYTES % 0 % (0-0); BAND % (MANUAL) 0 % (0-6); BASOPHILS % (MANUAL) 0 % (0-2); EOSINOPHILS % (MANUAL) 0 % (0-7); LYMPHOCYTES % (MANUAL) 11 % (20-46); MONOCYTES % (MANUAL) 9 % (0-11)
[2016-11-10] MEDS: THIAMINE HCL 100 MG TABLET GT SCH (09:47)
[2016-11-10] MEDS: levETIRAcetam 500 MG TABLET GT SCH ×2 (09:47→20:27)
[2016-11-10] MEDS: LACOSAMIDE 100 MG TABLET GT SCH ×2 (09:47→20:27)
[2016-11-10] MEDS: amLODIPine BESYLATE 10 MG TABLET GT SCH (09:48)
[2016-11-10] MEDS: LACTOBACILLUS RHAMNOSUS GG 1 CAP CAPSULE PO SCH ×2 (09:48→20:27)
[2016-11-10] MEDS: CHLORHEXIDINE GLUCONATE 15 ML/DOSE, 480 ML MM SCH ×2 (09:49→21:13)
[2016-11-10] MEDS: D5LR 1,000 ML IV SCH ×2 (09:50→21:12)
--- NOTE | 2016-11-10 10:00 | NUR ---
Notes Patient repositioned. No respiratory distress noted.
--- NOTE | 2016-11-10 12:00 | NUR ---
Notes Patient repositioned. Daughter, Johanny, has called and updated with plan of care.
[2016-11-10 12:15] VITALS: BP 121/67; PULSE 75; RESP 20; TEMP 97; O2SAT 97
[2016-11-10 16:38] VITALS: BP 131/59; PULSE 80; RESP 20; TEMP 96.8; O2SAT 95
--- NOTE | 2016-11-10 16:45 | NUR ---
WOUND EVALUATION: Wound Consult received from Dr. Rodrigues. Thank you, Dr. Rodrigues, for the consult. Patient received in a Afshan Bed with an IsoFlex SUJATA mattress with low air-loss therapy initiated, awake, non-verbal, and oriented. Patient is unable to turn independently. Tejas Score is an 8. Past Medical History: Traumatic Brain Injury, status post Right-Sided Craniotomy, Alcoholic Liver Cirrhosis. Pancytopenia, Chronic Respiratory Failure, Tracheostomy, Encephalopathy, and Quadriplegia. Recent Labs: WBC 3.3, RBC 3.18, Hgb 8.8, Hct 28.1, K 3.3, Cl 112, BUN 10, Creat 0.52, Gluc 193, Ca 8.2, Alb 1.9PT 13.7, INR 1.3. Intrinsic factors that delay wound healing: Chronic Respiratory Failure, Encephalopathy. Extrinsic factors that delay wound healing: Immobility. Microbiology: Urine Culture, Trach Culture, Blood Culture in progress. MRSA Screen negative. Wound Assessment: 1) Left Dorsal Hand: Open bulla, present on admission. Wound bed is 100% pink. No odor, scant serous drainage. Nandini-wound intact. 2) Left Medial Lower Extremity, Superior to Malleolus: Open bulla, present on admission. Wound bed is 100% pink. No odor, scant serous drainage. Nandini-wound intact. Measures 1.0 cm x 2.5 cm. Recommend: Cleanse wounds with normal saline. Place SurePrep onto nandini-wounds. Cover with oil emulsion dressing, non-adherent pad, then foam dressing. Perform wound care daily, and as needed for dressing soiling or dislodgement. 3) Buttocks: Erythema from IAD, present on admission. Recommend: Cleanse involved areas with normal saline. Pat dry. Place moisture barrier cream onto involved areas. Perform site care qid, and as needed for soiling. Also recommend: Reposition patient side to side only every 2 hours with pillow support, and off-load pressure areas with pillows for pressure re-distribution. Offload, elevate and float bilateral heels with pillows. Perform skin care and monitor skin integrity Q shift. Use moisture barrier cream on buttocks and other moisture susceptible areas QID and as needed for soiling. Maintain patient on a low air-loss mattress.
[2016-11-10] MEDS ORDERED: POTASSIUM CHLORIDE 40 MEQ in NS 250 ML IV ONE (17:00)
--- NOTE | 2016-11-10 17:00 | NUR ---
Notes Patient's daughter, Johanny, at bedside. Asked if Dr. Rodrigues can call her to update with plan of care. Best contact number written down and taped to the outside of the chart. [phone]
[2016-11-10] MEDS ORDERED: FUROSEMIDE 20 MG/2 ML VIAL IVP ONE (17:45)
--- NOTE | 2016-11-10 19:30 | NUR ---
Closing Note Patient needs met throughout shift. Family has been updated with plan of care, medications explained to family. No respiratory distress noted throughout shift. Patient care endorsed to oncoming shift nurse.
--- NOTE | 2016-11-10 19:55 | NUR ---
PM SHIFT ASSESSMENT Received patient in bed, awake, nonverbal, does not track with eyes, no sob noted. Patient on t-bar at 10 liters. Right upper arm Picc line with K rider and IVF infusing. Patient has g tube to mid abdomen, npo at this time, page catheter secured and to gravity draining yellow urine, patient repositioned with pillow support, bilateral heels elevated with pillow support, poc discussed with family at bedside, sister, Dorinda verbalized understanding. Safety measures in place, will closely monitor.
[2016-11-10 19:57] VITALS: BP 116/70; PULSE 72; RESP 20; TEMP 97.2; O2SAT 99
[2016-11-10] MEDS: FAMOTIDINE 20 MG TABLET GT SCH (20:28)
[2016-11-10] MEDS: TERAZOSIN HCL 1 MG CAPSULE (HYTRIN) GT SCH (20:28)
--- NOTE | 2016-11-10 21:35 | NUR ---
RN ROUNDS Patient's due medications administered via gt, no residual noted. Patient's family educated on medications, verbalized understanding, oral care provided. Patient repositioned for comfort.
--- NOTE | 2016-11-10 22:34 | NUR ---
RN ROUNDS Patient asleep, respirations even and unlabored, no sob noted, repositioned and turned with pillow support, IVF infusing. safety measures in place, will continue to monitor.
[2016-11-11] VITALS: BP 93/51; PULSE 65; RESP 16; TEMP 96.6; O2SAT 100
--- NOTE | 2016-11-11 00:44 | NUR ---
RN ROUNDS Patient awake, respirations even and unlabored, no distress noted, repositioned and turned with pillow support, IVF infusing. Safety measures in place, will continue to monitor.
[2016-11-11] MEDS: IPRATROPIUM/ALBUTEROL SULFATE 3 ML AMPUL.NEB INH SCH ×4 (02:01→15:58)
[2016-11-11] MEDS: PIPERACILLIN/TAZO 3.375 GM in NS 50 ML IV SCH ×4 (02:04→21:21)
--- NOTE | 2016-11-11 02:16 | NUR ---
RN ROUNDS Patient asleep, respirations even and unlabored, no sob noted, repositioned and turned with pillow support, IVF infusing. Safety measures in place, will continue to monitor.
[2016-11-11] MEDS: D5LR 1,000 ML IV SCH ×2 (04:15→09:49)
--- NOTE | 2016-11-11 04:21 | NUR ---
RN ROUNDS Patient continues to sleep, respirations even and unlabored, no sob noted, vital signs stable. Repositioned and turned with pillow support, IVF infusing. Safety measures in place, will continue to monitor.
[2016-11-11 04:36] VITALS: BP 97/57; PULSE 80; RESP 19; TEMP 96.6; O2SAT 95
[2016-11-11] MEDS: LEVOTHYROXINE SODIUM 0.1 MG TABLET GT SCH (06:00)
[2016-11-11] MEDS: GABAPENTIN 300 MG CAPSULE GT SCH ×3 (06:00→21:28)
[2016-11-11] MEDS: HEPARIN SODIUM,PORCINE 5000 UNITS/ML VIAL SUBCUT SCH ×2 (06:01→16:14)
--- NOTE | 2016-11-11 06:23 | NUR ---
RN ROUNDS Patient awake, respirations even and unlabored, no distress noted, suctioned trach as needed, oral care provided, due medications administered via g tube, no residual noted, repositioned and turned with pillow support, IVF infusing. Safety measures maintained, will continue to monitor until report given to am nurse.
[2016-11-11 07:04] LABS: HEMATOCRIT 27.2 % (36-54); HEMOGLOBIN 8.5 g/dL (14.0-18.0); MEAN CORPUSCULAR HEMOGLOBIN 28 pg (27-31); MEAN CORPUSCULAR HGB CONC 31 % (32-36); MEAN CORPUSCULAR VOLUME 90 fL (79.0-98.0); RED BLOOD CELL COUNT(AUTO) 3.03 MIL/uL (4.2-6.2); RED CELL DISTRIBUTION WIDTH 21.1 % (9.0-15.0)
--- NOTE | 2016-11-11 07:20 | NUR ---
Initial notes: pt on bed sleeping with Tbar 0xygen @ 10L. stable. no labored breathing. call light within reach. report received at bedside.
[2016-11-11 07:21] LABS: CALCIUM 7.9 mg/dL (8.4-11.0); CREATININE 0.56 mg/dL (0.55-1.30)
[2016-11-11 07:27] LABS: PLATELET COUNT (AUTO) 41 K/uL (130-430); WHITE BLOOD COUNT (AUTO) 1.4 K/uL (4.8-10.8)
[2016-11-11 07:42] LABS: POTASSIUM 2.8 mmol/L (3.5-5.1)
[2016-11-11 08:27] LABS: BASOPHILS % (MANUAL) 0 % (0-2); EOSINOPHILS % (MANUAL) 5 % (0-7); LYMPHOCYTES % (MANUAL) 26 % (20-46); MONOCYTES % (MANUAL) 10 % (0-11)
[2016-11-11] MEDS: levETIRAcetam 500 MG TABLET GT SCH (09:00)
[2016-11-11] MEDS: THIAMINE HCL 100 MG TABLET GT SCH (09:00)
[2016-11-11] MEDS: LACOSAMIDE 100 MG TABLET GT SCH ×2 (09:00→21:00)
[2016-11-11] MEDS: LACTOBACILLUS RHAMNOSUS GG 1 CAP CAPSULE PO SCH ×2 (09:00→21:00)
[2016-11-11] MEDS: amLODIPine BESYLATE 10 MG TABLET GT SCH (09:00)
--- NOTE | 2016-11-11 10:00 | NUR ---
XR : staff wheeled the pt via hospital bed for XR with gatrograffin.
[2016-11-11] MEDS ORDERED: POTASSIUM CHLORIDE 40 MEQ in D5W 250 ML IV ONE (11:30)
[2016-11-11] MEDS ORDERED: POTASSIUM CHLORIDE 10 MEQ in 0.45% NACL 1,000 ML IV SCH (11:30)
--- NOTE | 2016-11-11 11:30 | NUR ---
Dr. Steiner: Dr Steiner ordered to hook the suction to gtube. Continue no gtube feeding.
[2016-11-11 11:32] VITALS: Ht 167.6 cm; Wt 68.9 kg
[2016-11-11] MEDS: CHLORHEXIDINE GLUCONATE 15 ML/DOSE, 480 ML MM SCH ×2 (12:17→21:28)
[2016-11-11 12:20] VITALS: BP 120/59; PULSE 74; RESP 16; TEMP 97.3; O2SAT 100
--- NOTE | 2016-11-11 16:22 | NUR ---
rounds: pt sleeping. no distress noted. family at bedside.
[2016-11-11 16:57] VITALS: BP 124/62; PULSE 70; RESP 16; TEMP 97.8; O2SAT 98
[2016-11-11] MEDS ORDERED: DEXTROSE 50% JECT 50 ML DISP.SYRIN IVP PRN (17:15)
[2016-11-11] MEDS ORDERED: levETIRAcetam 500 MG in NS 100 ML IV SCH (17:15)
[2016-11-11] MEDS ORDERED: *TPN PER PHARMACY XX PRN (17:15)
[2016-11-11] MEDS ORDERED: MAGNESIUM SULFATE 50 ML IV ONE (18:00)
[2016-11-11] MEDS ORDERED: POTASSIUM CHLORIDE 40 MEQ in NS 250 ML IV ONE (18:00)
--- NOTE | 2016-11-11 18:00 | NUR ---
Consent: obtained consent from daughter, at bedside with pt. Wants to be informed if the pt will be in surgery.
[2016-11-11] MEDS ORDERED: POTASSIUM CHLORIDE IV SCH (18:45)
[2016-11-11] MEDS ORDERED: D5LR IV SCH (18:45)
--- NOTE | 2016-11-11 19:30 | NUR ---
closing notes: pt on bed. stable. family at bedside. call light within reach. report given at bedside.
--- NOTE | 2016-11-11 19:45 | NUR ---
PM SHIFT ASSESSMENT Received patient in bed, awake, nonverbal, does not track with eyes, in no distress. Patient has t-bar, with small amount of sputum noted, Right upper arm Picc line with K rider and IVF infusing at this time. Patient has g tube to mid abdomen, npo at this time,gt connected to continuous low suction small vertical incision to mid abd noted covered with abdominal dressing. Arzola catheter secured and to gravity draining yellow urine, patient repositioned with pillow support, bilateral heels elevated with pillow support, poc discussed with sister at bedside, verbalized understanding. Safety measures in place, will closely monitor.
[2016-11-11 20:11] VITALS: BP 98/67; PULSE 80; RESP 20; TEMP 97.2; O2SAT 95
[2016-11-11] MEDS: FAMOTIDINE 20 MG TABLET GT SCH (21:00)
[2016-11-11] MEDS: TERAZOSIN HCL 1 MG CAPSULE (HYTRIN) GT SCH (21:00)
[2016-11-11] MEDS: levETIRAcetam 1,000 MG in NS 100 ML IV SCH (21:21)
[2016-11-11] MEDS: POTASSIUM CHLORIDE 40 MEQ in D5W 1,000 ML IV SCH (21:27)
--- NOTE | 2016-11-11 22:00 | NUR ---
RN ROUNDS Patient awake, no distress noted, suctioned trach as needed, oral care provided, due antibiotic medications administered, repositioned to left side with pillow support,, will monitor.
--- NOTE | 2016-11-11 23:23 | NUR ---
RN ROUNDS/ WOUND CARE Patient resting quietly, no distress noted, blood sugar check this pm 89. Patient remains NPO, on IVF of D5W with 40 meq KCL @ 100 ml/hr. Wound care done to left hand and left foot, cleansed with NS, covered with oil emulsion dressing and non adherent dressing, covered with foam dressing.
[2016-11-12] VITALS (7 sets, daily range): BP systolic 102–147; BP diastolic 59–78; PULSE 77–84; RESP 16–20; TEMP 97.2–98; O2SAT 95–100
--- NOTE | 2016-11-12 00:05 | NUR ---
RN ROUNDS Patient asleep, respirations even and unlabored, vital signs stable. Repositioned and turned with pillow support, will closely monitor.
[2016-11-12] MEDS: PIPERACILLIN/TAZO 3.375 GM in NS 50 ML IV SCH ×4 (03:00→22:14)
[2016-11-12] MEDS: GABAPENTIN 300 MG CAPSULE GT SCH ×3 (05:33→21:35)
--- NOTE | 2016-11-12 06:12 | NUR ---
Spoke to Dr. Steiner this am, updated him on patient's latest labs, Dr. Steiner canceled surgery for this am due to patients lab and chest x ray results. States he will schedule surgery at another day. Informed warehouse laborer.
[2016-11-12] MEDS: LEVOTHYROXINE SODIUM 0.1 MG TABLET GT SCH (06:15)
[2016-11-12] MEDS: POTASSIUM CHLORIDE 40 MEQ in D5W 1,000 ML IV SCH (06:19)
--- NOTE | 2016-11-12 06:31 | NUR ---
CLOSING NOTE Patient awake, no sob noted, suctioned trach as needed, blood sugar check this am 91. Patient needs attended to, safety measures maintained through out shift, will continue to monitor until report given to am nurse.
[2016-11-12 06:36] LABS: ALBUMIN 1.9 g/dL (3.4-4.8); CREATININE 0.57 mg/dL (0.55-1.30); PHOSPHORUS 2.9 mg/dL (2.7-4.5); TOTAL BILIRUBIN 1.6 mg/dL (0.0-1.0)
[2016-11-12 06:46] LABS: INR 1.2 (0.80-1.20); PROTHROMBIN TIME 12.7 SECS (9.5-12.5)
--- NOTE | 2016-11-12 07:31 | NUR ---
INITIAL NOTE RECEIVED SHIFT REPORT AT BEDSIDE, PATIENT AWAKE, NONVERBAL, DOES NOT TRACK MOVEMENT WITH EYES, NO S/S OF DISTRESS OR PAIN NOTED, PATIENT HAS TBAR WITH O2 AT 4L. RIGHT UPPER ARM PICC NOTED WITH FLUIDS INFUSING AT ORDERED RATE, GTUBE NOTED TO MID ABDOMEN, PATIENT NPO AT THIS TIME, TTUBE CONNECTED TO CONTINUOS LOW INTERMITTENT SUCTION, DRESSING NOTED TO MID ABDOMEN, CLEAN DRY AND INTACT, CUELLO CATHETER SECURED IN PLACE, DRAINING CLEAR YELLOW URINE TO GRAVITY. PATIENT POSITIONED WITH PILLOW SUPPORT TO BILATERAL ARMS, HEELS ELEVATED. PER SHIFT REPORT SURGERY FOR JEJUNOSTOMEY PLACEMENT HAS BEEN POSTPONED FOR TODAY DUE TO LABS, WILL NOTIFY FAMILY AND CONTINUE TO MONITOR PATIENT. SAFETY MEASURES IN PLACE, BED IN LOW POSITION AND LOCKED, CALL LIGHT WITHIN REACH.
[2016-11-12 07:45] LABS: BASOPHILS % (AUTO) 0.6 % (0.0-2.0); EOSINOPHILS # (AUTO) 0.1 K/uL (0.0-0.4); EOSINOPHILS % (AUTO) 4.1 % (0.0-4.0); HEMATOCRIT 28.3 % (36-54); HEMOGLOBIN 8.9 g/dL (14.0-18.0); LYMPHOCYTES # (AUTO) 0.3 K/uL (1.0-5.5); LYMPHOCYTES % (AUTO) 22.5 % (20.5-51.5); MEAN CORPUSCULAR HEMOGLOBIN 28 pg (27-31); MEAN CORPUSCULAR HGB CONC 32 % (32-36); MONOCYTES # (AUTO) 0.1 K/uL (0.0-1.0); MONOCYTES % (AUTO) 8.6 % (1.7-9.3); RED BLOOD CELL COUNT(AUTO) 3.25 MIL/uL (4.2-6.2); RED CELL DISTRIBUTION WIDTH 21.1 % (9.0-15.0)
[2016-11-12] MEDS: IPRATROPIUM/ALBUTEROL SULFATE 3 ML AMPUL.NEB INH SCH ×4 (07:46→20:48)
--- NOTE | 2016-11-12 08:00 | NUR ---
KIANA ELPIDIO CALLED TO NOTIFY OF POSTPONED PROCEDURE DUE TO CRITICAL LAB RESULTS, NO ANSWER, LEFT MESSAGE TO FOLLOW UP WITH RN. Addendum: 11/12/16 at 1123 by Casie Hassan RN DR JAXON MAYORGA FOR CRITICAL LAB RESULTS OF WBC 1.5, PLT 43. AWAITING CALL BACK
[2016-11-12 08:01] LABS: PLATELET COUNT (AUTO) 43 K/uL (130-430); WHITE BLOOD COUNT (AUTO) 1.5 K/uL (4.8-10.8)
[2016-11-12 08:02] LABS: MEAN CORPUSCULAR VOLUME 87 fL (79.0-98.0)
[2016-11-12] MEDS: CHLORHEXIDINE GLUCONATE 15 ML/DOSE, 480 ML MM SCH ×2 (08:47→21:34)
[2016-11-12] MEDS: amLODIPine BESYLATE 10 MG TABLET GT SCH (08:49)
[2016-11-12] MEDS: levETIRAcetam 1,000 MG in NS 100 ML IV SCH ×2 (08:49→21:35)
[2016-11-12] MEDS: LACOSAMIDE 100 MG TABLET GT SCH ×2 (08:50→21:36)
[2016-11-12] MEDS: THIAMINE HCL 100 MG TABLET GT SCH (08:50)
[2016-11-12] MEDS: LACTOBACILLUS RHAMNOSUS GG 1 CAP CAPSULE PO SCH ×2 (08:50→21:36)
--- NOTE | 2016-11-12 09:17 | NUR ---
ORAL CARE AND AM MEDICATIONS ORAL CARE AND SUCTIONING, PT TOLERATED WELL, GTUBE MEDICATION HELD PER PT NPO, ADMINISTERED IV MEDICATIONS. SAFETY MEASURES IN PLACE, BED IN LOW POSITION AND LOCKED, SEIZURE PRECAUTIONS IN PLACE, WILL CONTINUE TO MONITOR.
--- NOTE | 2016-11-12 09:45 | NUR ---
INITIAL NOTE PT RECEIVED AWAKE, NONVERBAL. NO S/S OF SOB OR DISTRESS NOTED. NO FACIAL GRIMACING INDICATING PAIN. VSS. SATING WELL WITH TBAR IN PLACE WITH O2 AT 4L. PICC TO RIGHT UPPER ARM NOTED, DRESSING IS DRY AND INTACT. FLUIDS ARE INFUSING WELL ORDERED WITH LR AT 50, TPN AT 42 AND LIPIDS AT 10, PT TOLERATING WELL. GTUBE ATTACHED TO INTERMITTENT LOW SUCTION, PT REMAINS NPO. G TUBE DRESSING NOTED AND IS DRY AND INTACT. CUELLO CATHETER IN PLACE AND DRAINING TO GRAVITY, CLEAR PATRICIA URINE NOTED. DRESSING CLEAN DRY AND INTACT ON LEFT ANKLE AND LEFT HAND. SEIZURE, ASPIRATION AND FALL PRECAUTIONS ARE IN PLACE. CALL LIGHT IN REACH, WITH BED IN LOWEST, LOCKED POSITION AND THE ALARM ON. WILL CONTINUE TO MONITOR CLOSELY. Addendum: 11/12/16 at 2010 by Farhana Jenkins RN THE DATE AND TIME FOR THIS NOTE SHOULD BE 11/12/161944
--- NOTE | 2016-11-12 09:50 | NUR ---
DR HUI MAKING ROUNDS
[2016-11-12 10:59] LABS: NEUTROPHILS % (AUTO) 64.2 % (40.0-70.0)
--- NOTE | 2016-11-12 11:30 | NUR ---
ACCUCHECK 107, NO COVERAGE NEEDED PER SLIDING SCALE. PT REPOSITIONED WITH PILLOW SUPPORT TO BILATERAL UPPER EXTREMITIES AND HEELS, NO S/S OF DISTRESS OR PAIN NOTED, VSS, RT AT BEDSIDE, WILL RECEIVE BREATHING TREATMENT. SAFETY MEASURES IN PLACE.
--- NOTE | 2016-11-12 11:59 | NUR ---
DR FOSTER MAKING ROUNDS
--- NOTE | 2016-11-12 12:31 | NUR ---
FAMILY AT BEDSIDE, UPDATED ON PLAN, FAMILY VERBALIZED UNDERSTANDING. FAMILY MEMBER STATES SHE WOULD LIEKT O SPEAK TO DR COATES IF HE IS COMES WHILE SHE IS HERE, WILL FOLLOW UP .
--- NOTE | 2016-11-12 14:30 | NUR ---
ROUNDS IV ANTIBIOTIC TO BE ADMINISTERED, FAMILY AT BEDSIDE, NO S/S OF DISTRESS OR COMPLAINT OF PAIN, PT REPOSITIONED WITH PILLOW SUPPORT, TOLERATED WELL. SAFETY MEASURES IN PLACE, WILL CONTINUE TO MONITOR.
--- NOTE | 2016-11-12 15:20 | NUR ---
Wound Care wound care nurseDainel, brody bedside, wounds assessed, pictures updated, wound care performed; applied zguard, covered with foam dressing. Pt repositioned with pillow support, heels floating. Pt tolerated well, no s/s of distress noted. Safety measures an seizure precautions in place, bed in low position and locked, call light within reach, will continue to monitor.
--- NOTE | 2016-11-12 15:20 | NUR ---
WOUND RE-EVALUATION: Patient received in a [place] Bed with an IsoFlex SUJATA mattress with low air-loss therapy, awake, non-verbal, and oriented. Patient is unable to turn independently. Tejas Score is a 15. Intrinsic factors that delay wound healing: Chronic Respiratory Failure, Encephalopathy. Extrinsic factors that delay wound healing: Immobility. Microbiology: Urine Culture and Trach Culture positive for Pseudomonas Aeruginosa. Blood Culture in progress. Wound Assessment: 1) Left Dorsal Hand: 2) Left Medial Lower Extremity, Superior to Malleolus: Open bullae, present on admission. Wound bed is 100% pink. No odor, no drainage. Nandini-wound intact. Recommend: Cleanse wounds with normal saline. Pat dry. Put moisture barrier cream onto site. Cover with foam dressing. Perform wound care daily, and as needed for dressing soiling or dislodgement. 3) Left Abdomen: 4) Right Mid Lateral Abdomen: Open bullae. Wound beds are 100% red. No odor, no drainage. Nandini-wounds intact. Recommend: Cleanse wounds with normal saline. Pat dry. Put moisture barrier cream onto site. Cover with foam dressing. Perform wound care daily, and as needed for dressing soiling or dislodgement. 5) Buttocks: Erythema and non-intact skin from IAD. Recommend continue: Cleanse involved areas with normal saline. Pat dry. Place moisture barrier cream onto involved areas. Cover with Sacral foam dressing. Perform site care daily, and as needed for dressing soiling or dislodgment. Also recommend continue: Reposition patient side to side only every 2 hours with pillow support, and off-load pressure areas with pillows for pressure re-distribution. Offload, elevate and float bilateral heels with pillows. Perform skin care and monitor skin integrity Q shift. Use moisture barrier cream on buttocks and other moisture susceptible areas QID and as needed for soiling. Maintain patient on a low air-loss mattress.
[2016-11-12] MEDS: FAT EMULSIONS 250 ML IV SCH (16:17)
[2016-11-12] MEDS: K PHOS IV SCH ×10 (16:20)
[2016-11-12] MEDS: TPN CENTRAL IV SCH ×10 (16:20)
[2016-11-12] MEDS: SODIUM ACETATE IV SCH ×10 (16:20)
[2016-11-12] MEDS: POTASSIUM CHLORIDE IV SCH ×10 (16:20)
[2016-11-12] MEDS: [UNRECOGNIZED DRUG - OTHER] IV SCH ×10 (16:20)
--- NOTE | 2016-11-12 16:30 | NUR ---
TPN AND LIPIDS STARTED
--- NOTE | 2016-11-12 16:50 | NUR ---
DR COATES MAKING ROUNDS, DR COATES UPDATED ON THE CRITICAL LAB RESULTS THAT HE WAS PAGED FOR IN THE AM, AND THE POSTPONED PROCEDURE DUE TO CRITICAL RESULTS. DR COATES DC'D CURRENT IV FLUIDS AND STARTED LACTATED RINGER AT 50CC/ HR, ORDER NOTED.
[2016-11-12] MEDS: LR 1,000 ML IV SCH (17:51)
[2016-11-12] MEDS: INSULIN REGULAR, HUMAN 100 UNITS/ML, 10 ML VIAL (novoLIN R) SUBCUT PRN (17:52)
--- NOTE | 2016-11-12 17:55 | NUR ---
ACCUCHECK 154, COVERED WITH 2 UNITS PER SLIDING SCALE.
--- NOTE | 2016-11-12 18:10 | NUR ---
PICC DRESSING CHANGED DRESSING CHANGE WAS DUE, PERFORMED VIA STERILE TECHNIQUE, COVERED WITH CLEAR DRESSING, EACH LUMEN FLUSHED WITH NORMAL SALINE, GOOD BLOOD RETURN NOTED. WILL CONTINUE TO MONITOR.
--- NOTE | 2016-11-12 18:36 | NUR ---
CLOSING NOTE PT REPOSITIONED WITH PILLOW SUPPORT, EYES OPEN, AWAKE, VSS, TBAR IN PLACE WITH O2 AT 4L. PICC TO RIGHT UPPER ARM PATENT AND INFUSING, LR AT 50, TPN AT 42 AND LIPIDS AT 10, PT TOLERATING WELL. GTUBE ATTACHED TO INTERMITTENT LOW SUCTION, PT REMAINS NPO. CUELLO CATHETER IN PLACE AND DRAINING TO GRAVITY CLEAR PATRICIA URINE. DRESSING CLEAN DRY AND INTACT. SEIZURE PRECAUTIONS AND SAFETY PRECAUTIONS MAINTAINED THROUGH OUT SHIFT, NO SEIZURE ACTIVITY NOTED, BED IN LOW POSITION AND LOCKED, CALL LIGHT WITHIN REACH, WILL GIVE REPORT TO FOLLOWING SHIFT.
--- NOTE | 2016-11-12 19:45 | NUR ---
INITIAL NOTE PT RECEIVED AWAKE, NONVERBAL. NO S/S OF SOB OR DISTRESS NOTED. NO FACIAL GRIMACING INDICATING PAIN. VSS. SATING WELL WITH TBAR IN PLACE WITH O2 AT 4L. PICC TO RIGHT UPPER ARM NOTED, DRESSING IS DRY AND INTACT. FLUIDS ARE INFUSING WELL ORDERED WITH LR AT 50, TPN AT 42 AND LIPIDS AT 10, PT TOLERATING WELL. GTUBE ATTACHED TO INTERMITTENT LOW SUCTION, PT REMAINS NPO. G TUBE DRESSING NOTED AND IS DRY AND INTACT. CUELLO CATHETER IN PLACE AND DRAINING TO GRAVITY, CLEAR PATRICIA URINE NOTED. DRESSING CLEAN DRY AND INTACT ON LEFT ANKLE AND LEFT HAND. SEIZURE, ASPIRATION AND FALL PRECAUTIONS ARE IN PLACE. CALL LIGHT IN REACH, WITH BED IN LOWEST, LOCKED POSITION AND THE ALARM ON. WILL CONTINUE TO MONITOR CLOSELY.
[2016-11-12] MEDS: TERAZOSIN HCL 1 MG CAPSULE (HYTRIN) GT SCH (21:36)
[2016-11-12] MEDS: FAMOTIDINE 20 MG TABLET GT SCH (21:36)
--- NOTE | 2016-11-12 22:17 | NUR ---
rounds pt. resting in bed with eyes closed. equal chest rise and fall noted. no s/s of sob or distress. no facial grimacing indicating any pain. HOB in upright position. IV fluids, tpn, and lipids are infusing well as ordered. pt. supported well with pillows. will continue to monitor for any changes. safety, fall and seizure precautions in place. call light in reach, bed alarm on.
[2016-11-13] MEDS: INSULIN REGULAR, HUMAN 100 UNITS/ML, 10 ML VIAL (novoLIN R) SUBCUT PRN ×5 (00:29→23:41)
--- NOTE | 2016-11-13 00:31 | NUR ---
ROUNDS PT. RESTING IN BED NO S/S OF SOB OR DISTRESS AT THIS TIME. NO FACIAL GRIMACING INDICATING ANY PAIN. ACCUCHECK DONE, BS 158, 2 UNITS OF REGULAR INSULIN GIVEN PER SLIDING SCALE. WILL CONTINUE TO MONITOR FOR ANY CHANGES. SAFETY, FALL, SEIZURE AND ASPIRATION PRECAUTIONS IN PLACE. CALL LIGHT IN REACH, BED ALARM ON.
[2016-11-13 01:08] VITALS: BP 121/73; PULSE 85; RESP 16; TEMP 97.4; O2SAT 98
[2016-11-13] MEDS: PIPERACILLIN/TAZO 3.375 GM in NS 50 ML IV SCH ×4 (03:10→22:31)
[2016-11-13] MEDS: IPRATROPIUM/ALBUTEROL SULFATE 3 ML AMPUL.NEB INH SCH ×6 (03:29→20:56)
[2016-11-13 04:00] VITALS: BP 119/70; PULSE 93; RESP 18; TEMP 97.7; O2SAT 97
--- NOTE | 2016-11-13 04:15 | NUR ---
ROUNDS PROVIDED PATIENT WITH HYGIENE CARE AND NEW GOWN. DRESSINGS REMAIN CLEAN DRY AND INTACT TO WOUNDS. PT. SUCTIONED. REPOSITION FOR COMFORT SUPPORTED WELL WITH PILLOWS. IV FLUIDS, TPN, AND LIPIDS INFUSING WELL. WILL CONTINUE TO MONITOR. SAFETY, FALL AND SEIZURE PRECAUTIONS IN PLACE. CALL LIGHT IN REACH, ALARM ON.
[2016-11-13] MEDS: LEVOTHYROXINE SODIUM 0.1 MG TABLET GT SCH (06:06)
[2016-11-13] MEDS: GABAPENTIN 300 MG CAPSULE GT SCH ×3 (06:06→21:47)
--- NOTE | 2016-11-13 06:23 | NUR ---
CLOSING NOTE PT. RESTING IN BED WITH EYES OPEN. NO S/S OF SOB OR DISTRESS NOTED. NO FACIAL GRIMACING INDICATING PAIN. TRACHEAL SUCTION PROVIDED. ACCUCHECK DONE, BS 176, 2 UNITS REGULAR INSULIN GIVEN PER SLIDING SCALE. IV FLUIDS, TPN AND LIPIDS INFUSING WELL ORDERED. SAFETY, FALL, SEIZURE, AND ASPIRATION PRECAUTIONS WERE MAINTAINED. WILL ENDORSE CARE TO AM NURSE. CALL LIGHT IN REACH, BED ALARM ON.
[2016-11-13 06:25] LABS: CREATININE 0.61 mg/dL (0.55-1.30); POTASSIUM 3.7 mmol/L (3.5-5.1)
[2016-11-13 06:44] LABS: EOSINOPHILS # (AUTO) 0.1 K/uL (0.0-0.4); LYMPHOCYTES # (AUTO) 0.4 K/uL (1.0-5.5); MONOCYTES # (AUTO) 0.1 K/uL (0.0-1.0)
[2016-11-13 07:24] LABS: BASOPHILS % (AUTO) 0.8 % (0.0-2.0); EOSINOPHILS % (AUTO) 3.9 % (0.0-4.0); HEMATOCRIT 29.6 % (36-54); HEMOGLOBIN 9.3 g/dL (14.0-18.0); LYMPHOCYTES % (AUTO) 24.3 % (20.5-51.5); MEAN CORPUSCULAR HEMOGLOBIN 28 pg (27-31); MEAN CORPUSCULAR HGB CONC 32 % (32-36); MEAN CORPUSCULAR VOLUME 88 fL (79.0-98.0); MONOCYTES % (AUTO) 8.3 % (1.7-9.3); NEUTROPHILS % (AUTO) 62.7 % (40.0-70.0); RED BLOOD CELL COUNT(AUTO) 3.38 MIL/uL (4.2-6.2); RED CELL DISTRIBUTION WIDTH 20.7 % (9.0-15.0)
[2016-11-13 07:33] LABS: NEUTROPHILS # (AUTO) 0.9 K/uL (1.8-7.7)
[2016-11-13 07:35] LABS: PLATELET COUNT (AUTO) 42 K/uL (130-430); WHITE BLOOD COUNT (AUTO) 1.5 K/uL (4.8-10.8)
--- NOTE | 2016-11-13 07:38 | NUR ---
PAGED DR COATES TO REPORT CRITICAL LAB VALUES OF WBC 1.5 AND PLT 42, AWAITING CALL BACK
--- NOTE | 2016-11-13 08:01 | NUR ---
INITIAL NOTE RECEIVED REPORT AT BEDSIDE, PT AWAKE, NONVERBAL, RECEIVING BREATHING TREATMENT AT THIS TIME, VSS, NO S/S OF DISTRESS OR PAIN, TBAR NOTED WITH O2 AT 4L, RIGHT UPPER ARM PICC NOTED WITH FLUIDS, TPN AND LIPIDS INFUSING AT ORDERED RATE, IV SITE PATENT, NO S/S OF INFILTRATION NOTED, DRESSING CLEAN DRY AND INTACT. GTUBE NOTED ATTACHED TO INTERMITTENT LOW SUCTION, PT REMAINS NPO, CUELLO CATHETER IN PLACE, AND DRAINING CLEAR PATRICIA URINE TO GRAVITY, DRESSING TO LEFT HAND, LEFT ANKLE, AND BILATERAL ABDOMINAL SIDES, CLEAN DRY AND INTACT. SEIZURE, ASPIRATION, AND SAFETY PRECAUTIONS IN PLACE, BED IN LOW POSITION AND LOCKED, CALL LIGHT WITHIN REACH, WILL FOLLOW UP.
--- NOTE | 2016-11-13 08:13 | NUR ---
DR KRISTIN SAUCEDO, UPDATED ON CRITICAL LAB VALUES
[2016-11-13 08:18] VITALS: BP 141/76; PULSE 83; RESP 18; TEMP 97.2; O2SAT 100
[2016-11-13] MEDS: levETIRAcetam 1,000 MG in NS 100 ML IV SCH ×2 (08:52→21:47)
[2016-11-13] MEDS: THIAMINE HCL 100 MG TABLET GT SCH (08:52)
[2016-11-13] MEDS: amLODIPine BESYLATE 10 MG TABLET GT SCH (08:52)
[2016-11-13] MEDS: CHLORHEXIDINE GLUCONATE 15 ML/DOSE, 480 ML MM SCH ×2 (08:53→22:29)
[2016-11-13] MEDS: LACTOBACILLUS RHAMNOSUS GG 1 CAP CAPSULE PO SCH ×2 (08:53→21:48)
[2016-11-13] MEDS: LACOSAMIDE 100 MG TABLET GT SCH ×2 (08:53→21:48)
--- NOTE | 2016-11-13 09:49 | NUR ---
Hemo Consult: for Dr. Chavez, regarding neutropenia, ordered by Dr. Rodrigues, spoke with Reji.
--- NOTE | 2016-11-13 10:15 | NUR ---
PT REPOSITIONED WITH PILLOW SUPPORT TO UPPER ARMS AND HEELS FLOATING, NO S/S OF DISTRESS OR PAIN NOTED, SAFETY AND SEIZURE PRECAUTIONS MAINTAINED, BED IN LOW POSITION AND LOCKED, WILL CONTINUE TO MONITOR.
--- NOTE | 2016-11-13 11:30 | NUR ---
Nutrition F/U Admitting Diagnosis Aspiration pneumonia, severe protein malnutrition Reviewed Pertinent Medical/Surgical Hx Other Medical Record Medical History Comment: Chronic respiratory failure, s/p tracheostomy, liver cirrhosis, craniotomy, TBI, recent [place] GT placement per MD notes Subjective Information Pt seen resting in bed, trach to T-bar, and TPN w/ lipids infusing as per MD/pharmacy orders. Per surgical note 11/13/16: pt has persistent leukopenia and thrombocytopenia, and recommend hematology consult prior to Sx. Per MD orders, pending hematology consult. Per EMR, TPN Intakes: 624 ml 11/13/16. Abd is non-distended w/ active bowel sounds. Last BM x3 11/12/16. I/O: 1324/1900 (-575 ml) per 12 hours. Current TPN support is appropriate and adequate at this time. RD called pharmacy to relay recommendations to continue current TPN regimen. Pt is not appropriate for nutrition education. Current Diet Order/Nutrition Support NPO x4 days & TPN D50%, AA8.5% at 42 ml/hr, IL20% at 10 ml/hr via central line Provides: 1509 kcal/day, 43 gm protein/day, 1248 ml free water/day, and GIR: 2.5 gm CHO/kg/min Meets: 98% of lower end of estimated caloric needs and 62% of lower end of estimated protein needs Patient/Significant Other Unable To Verbalize Education Provided Not Indicated Pertinent Medications Reviewed Pertinent Labs Reviewed 11/13/16: WBC 1.5 L, Hgb 9.3 L/Hct 29.6 L, BG 174 H 11/12/16: TG 66 WNL Height (Feet) 5 feet Height (Inches) 6.00 inches Weight (Pounds) 152 pounds (admission); Bedscale wt: 153.8 lb, 70 kg (11/13/16) Weight (Calculated Kilograms) 68.482126 kilograms Patient Weight 68.946 kg Body Mass Index 24.53 kg/m2 %IBW 106 [place]/Adjusted Body Weight IBW: 142 lb, 65 kg. Adj IBW (quadriplegia): 124 lb, 56 kg Recent Weight Change No Weight Status Appropriate Food Allergies Unable to assess Usual Diet At Home Not available upon RD hard chart review; pt is from [facility] Skin Integrity Comment: Tejas scale: 13. Per Dress Shoe Inspector note 11/12/16: 1) Left Dorsal Hand: 2) Left Medial Lower Extremity, Superior to Malleolus: Open bullae, present on admission. 3) Left Abdomen: 4) Right Mid Lateral Abdomen: Open bullae. 5) Buttocks: Erythema and non-intact skin from IAD. Estimated Energy Expenditure (kcals/day) 3440-3239 kcal/day (BEE x 1-1.2 CBW for maintenance) Estimated Protein Required (g/day) 69-83 gm/day (1-1.2 gm/kg CBW for acute state) Estimated Fluid Required (l/day) 1.6-1.9 L/day (1 ml/kcal/day for maintenance) Problem/Etiology/Signs/Symptoms Inadequate nutritional intakes related to complicated GI function as evidenced by GE reflux upon Gastrografin study, need for JT placement, and NPO status unable to meet optimal nutritional requirements. *improved, pt now on TPN support Expected Outcomes/Goals - Monitor provision of EN support w/ goal of pt meeting at least 50% of estimated nutritional needs, labs trending WNL, normal GI function, and skin integrity/wt maintenance Dietitian Recommendations * Recommend continuing TPN D50%, AA8.5% at 42 ml/hr, IL20% at 10 ml/hr via central line Provides: 1509 kcal/day, 43 gm protein/day, 1248 ml free water/day, and GIR: 2.5 gm CHO/kg/min Meets: 98% of lower end of estimated caloric needs and 62% of lower end of estimated protein needs * Consider Nutren Pulmonary at 30 ml/hr, Free Water Flush: 150 ml Q6h via JT if/when medically appropriate Provides: 1080 kcal/day, 49 gm protein/day, and 1163 ml free water/day Meets: 70% of lower end of estimated caloric needs and 71% of lower end of estimated protein needs Follow Up High Risk: F/U in 2-3 days
--- NOTE | 2016-11-13 12:00 | NUR ---
DR COATES MAKING ROUNDS MADE AWARE OF PATIENTS CRITICAL LAB VALUES AND NEED FOR DVT PROPHYLAXIS, MD STATES HE WOULD FOLLOW UP.
[2016-11-13 12:36] VITALS: BP 120/71; PULSE 88; RESP 17; TEMP 97.5; O2SAT 96
--- NOTE | 2016-11-13 13:33 | NUR ---
FAMILY AT BEDSIDE, EDUCATED REGARDING NEED FOR DVT PROPHYLAXIS AND SCD PLACEMENT, FAMILY VERBALIZED UNDERSTANDING. SCDS PUT ON, FUNCTIONING WELL. SAFETY MEASURES IN PLACE, BED IN LOW POSITION AND LOCKED, WILL CONTINUE TO MONITOR
[2016-11-13] MEDS: LR 1,000 ML IV SCH (14:25)
--- NOTE | 2016-11-13 14:40 | NUR ---
ROUNDS PT REPOSITIONED TO OPPOSITE SIDE WITH PILLOW SUPPORT TO BILATERAL UPPER EXTREMITIES, HEALS FLOATING, SCDS IN PLACE, BED RETURNED TO LOW POSITION AND LOCKED, CALL LIGHT WITHIN REACH, WILL CONTINUE TO MONITOR
[2016-11-13 16:28] VITALS: BP 128/80; PULSE 91; RESP 17; TEMP 97.8; O2SAT 98
[2016-11-13] MEDS: FAT EMULSIONS 250 ML IV SCH (16:31)
[2016-11-13] MEDS: K PHOS IV SCH ×10 (16:32)
[2016-11-13] MEDS: POTASSIUM CHLORIDE IV SCH ×10 (16:32)
[2016-11-13] MEDS: SODIUM ACETATE IV SCH ×10 (16:32)
[2016-11-13] MEDS: [UNRECOGNIZED DRUG - OTHER] IV SCH ×10 (16:32)
[2016-11-13] MEDS: TPN CENTRAL IV SCH ×10 (16:32)
--- NOTE | 2016-11-13 16:45 | NUR ---
ROUNDS PT REPOSITIONED WITH PILLOW SUPPORT, HEELS FLOATING, TPN AND LIPIDS CHANGED, PT TOLERATING WELL. NO S/S OF DISTRESS OR COMPLAINT OF PAIN NOTED, SAFETY MEASURES IN PLACE, WILL FOLLOW UP
--- NOTE | 2016-11-13 17:15 | NUR ---
ACCUCHECK 155, COVERED PER SLIDING SCALE, PT TOLERATED WELL PROVIDED SUCTIONING AND ORAL CARE. SAFETY MEASURES IN PLACE, WILL FOLLOW UP
--- NOTE | 2016-11-13 19:28 | NUR ---
CLOSING NOTE PT AWAKE, EYES OPEN, FAMILY AT BEDSIDE, VSS, TBAR IN PLACE WITH O2 AT 4 L, PICC TO RIGHT UPPER ARM PATENT AND INFUSING LR AT 50, TPN AT 42, LIPIDS AT 10, PT TOLERATING WELL. GTUBE ATTACHED TO CONTINUOUS LOW SUCTION, PT REMAINS NPO. CUELLO CATHETER IN PLACE AND DRAINING CLEAR YELLOW URINE TO GRAVITY, DRESSINGS TO LEFT HAND, LEFT FOOT, BILATERAL ABDOMINAL SIDES AND COCCYX CDI. SEIZURE, SAFETY AND NEUTROPENIC PRECAUTIONS IN PLACE AND MAINTAINED THROUGHOUT SHIFT, NO SEIZURE ACTIVITY NOTED DURING SHIFT. BED IN LOW POSITION AND LOCKED, CALL LIGHT WITHIN REACH, WILL GIVE REPORT TO FOLLOWING SHIFT.
[2016-11-13 19:45] VITALS: BP 132/79; PULSE 93; RESP 18; TEMP 98.3; O2SAT 99
--- NOTE | 2016-11-13 19:45 | NUR ---
INITIAL NOTE: PT AWAKE, NONVERBAL. NO S/S OF SOB OR DISTRESS NOTED.TRACH WITH T BAR IN PLACE WITH O2 4 L NC, SAT 99% ;NO S/S OF ANY PAIN NOTED , NO FACIAL GRIMACING NOTED . VITALS ARE STABLE . PICC TO RIGHT UPPER ARM NOTED, DRESSING IS DRY AND INTACT.IV FLUIDS INFUSING WELL AT 50 CC/HR , TPN AT 42 ML/HR AND LIPIDS AT 10CC/HR , PT TOLERATING WELL. GTUBE ATTACHED TO LOW INTERMITTENT SUCTION, PT REMAINS NPO. G TUBE DRESSING NOTED AND IS DRY AND INTACT, NOTICED DRESSING TO THE ABDOMEN . CUELLO CATHETER IN PLACE AND DRAINING TO GRAVITY,DARK YELLOW URINE NOTED. DRESSING CLEAN DRY AND INTACT ON LEFT ANKLE AND LEFT HAND. SEIZURE, ASPIRATION AND FALL PRECAUTIONS IN PLACE. CALL LIGHT IN REACH, BED IN LOWEST, LOCKED POSITION AND THE ALARM ON. WILL CONTINUE TO MONITOR CLOSELY.
[2016-11-13] MEDS: FAMOTIDINE 20 MG TABLET GT SCH (21:48)
[2016-11-13] MEDS: TERAZOSIN HCL 1 MG CAPSULE (HYTRIN) GT SCH (21:49)
--- NOTE | 2016-11-13 22:00 | NUR ---
MEDICATION: ALIYAH PATEL STATED OK TO GIVE MEDICATION WITH SOME WATER THROUGH GTUBE AND CLAMP GT FOR 1 HR AND THEN CONNECT TO SUCTION ;ALSO DO [place] AWARE , SO MEDICATION CRUSHED AND GIVEN THROUGH GT , GT FLUSHED ; GT CLAMPED . PT IS COMFORTABLE ; NOT IN ANY ACUTE DISTRESS;
--- NOTE | 2016-11-13 23:30 | NUR ---
SUCTION RECONNECTED: SUCTION RECONNECTED TO LOW SUCTION WILL MONITOR.
[2016-11-14 00:12] VITALS: BP 119/65; PULSE 90; RESP 20; TEMP 97.9; O2SAT 98
--- NOTE | 2016-11-14 00:20 | NUR ---
RN ROUNDS: PT APPEARS TO BE SLEEPING, NOT IN ANY ACUTE DISTRESS AT THIS TIME; WILL CONTINUE TO MONITOR.
--- NOTE | 2016-11-14 02:15 | NUR ---
DRESSING/ SPONGE BATH: SPONGE BATH GIVEN ; CLEANED WITH CHG CLOTH ; LINEN AND GOWN CHANGED; DRESSING TO THE SACRUM REMOVED CLEANED WITH NS ,NOTICED DENUDED AND SMALL PORTION WITH RED WOUND BED ; PAT DRIED , APPLIED BARRIER CREAM , SACRAL DRESSING APPLIED .LEFT ABDOMEN DRESSING REMOVED CLEANED WITH NS,NOTICED WITH SMALL RED WOUND BED ; PAT DRIED , APPLIED BARRIER CREAM TO THE PERIWOUND, FOAM DRESSING APPLIED ; DRESSING TO THE MID ABDOMEN IS OPEN SLIGHTLY ; DRESSING REMOVED CLEANED INCISION SITE WITH NS, NO DRAINAGE NOTED ; PAT DRIED AND COVERED WITH ABD PAD ; GT SITE DRESSING CHANGED ; NOTED MILD BLOODY DRAINAGE AND DRIED BLOOD ; CLEANED WITH NS ; PAT DRIED AND ADIA GAUZE APPLIED . DRESSING TO THE LEFT ANKLE , LEFT WRIST AND R ABDOMEN WAS ALREADY CHANGED BY DAYSHIFT , ITS CLEAN DRY AND INTACT AT THIS TIME. Addendum: 11/14/16 at 0232 by Omar Owen RN PT TURNED AND REPOSITIONED .PT MADE COMFORTABLE; NOT IN ANY ACUTE DISTRESS.
[2016-11-14] MEDS: PIPERACILLIN/TAZO 3.375 GM in NS 50 ML IV SCH ×4 (03:23→22:04)
[2016-11-14 04:16] VITALS: BP 132/70; PULSE 92; RESP 20; TEMP 97.3; O2SAT 99
--- NOTE | 2016-11-14 04:17 | NUR ---
RN NOTES: APPEARS TO BE SLEEPING; NOT IN ANY ACUTE DISTRESS; WILL CONTINUE TO MONITOR.
[2016-11-14] MEDS: INSULIN REGULAR, HUMAN 100 UNITS/ML, 10 ML VIAL (novoLIN R) SUBCUT PRN ×4 (05:33→23:06)
[2016-11-14] MEDS: GABAPENTIN 300 MG CAPSULE GT SCH ×4 (05:36→22:04)
--- NOTE | 2016-11-14 06:19 | NUR ---
RN NOTES: PT IS SLEEPING ON AN OFF; NOT IN ANY ACUTE DISTRESS; WILL CONTINUE TO MONITOR.
[2016-11-14 06:28] LABS: ALBUMIN 2.1 g/dL (3.4-4.8); CALCIUM 8.2 mg/dL (8.4-11.0); CREATININE 0.49 mg/dL (0.55-1.30); POTASSIUM 3.8 mmol/L (3.5-5.1); TOTAL BILIRUBIN 1.4 mg/dL (0.0-1.0); TOTAL PROTEIN, SERUM 7.3 g/dL (6.4-8.3)
[2016-11-14 06:51] LABS: EOSINOPHILS # (AUTO) 0.1 K/uL (0.0-0.4); EOSINOPHILS % (AUTO) 3.9 % (0.0-4.0); HEMATOCRIT 29.3 % (36-54); HEMOGLOBIN 9.3 g/dL (14.0-18.0); LYMPHOCYTES # (AUTO) 0.4 K/uL (1.0-5.5); LYMPHOCYTES % (AUTO) 22.9 % (20.5-51.5); MEAN CORPUSCULAR HEMOGLOBIN 28 pg (27-31); MEAN CORPUSCULAR HGB CONC 32 % (32-36); MEAN CORPUSCULAR VOLUME 87 fL (79.0-98.0); MONOCYTES # (AUTO) 0.1 K/uL (0.0-1.0); MONOCYTES % (AUTO) 8.6 % (1.7-9.3); NEUTROPHILS # (AUTO) 1.1 K/uL (1.8-7.7); NEUTROPHILS % (AUTO) 63.6 % (40.0-70.0); RED BLOOD CELL COUNT(AUTO) 3.36 MIL/uL (4.2-6.2)
[2016-11-14] MEDS: IPRATROPIUM/ALBUTEROL SULFATE 3 ML AMPUL.NEB INH SCH ×7 (07:01→23:43)
[2016-11-14] MEDS: LEVOTHYROXINE SODIUM 0.1 MG TABLET GT SCH (07:04)
--- NOTE | 2016-11-14 07:09 | NUR ---
CLOSING NOTES: CHARGE NURSE DO STATED , SINCE NO ORDER FOR SURGERY GIVE MEDICATION AND HOLD GT SUCTION FOR AN HR.SO MEDICATION GIVEN ; GT SUCTION HOLD . WILL ENDORSE TO RN ; NO SEIZURE ACTIVITIES NOTED .PT IS COMFORTABLE .
[2016-11-14 07:47] LABS: PLATELET COUNT (AUTO) 35 K/uL (130-430); WHITE BLOOD COUNT (AUTO) 1.7 K/uL (4.8-10.8)
--- NOTE | 2016-11-14 08:00 | NUR ---
AM NOTES: RECEIVED PT AWAKE, NOT FOLLOWING COMMANDS, NON VERBAL, NO TRACKING, COUGH/GAG REFLEXES PRESENT, OPENS EYES SPONTANEOUSLY BUT NOT TO COMMANDS, CONTRACTED BOTH LOWER EXTREMITIES, NO SPONTANEOUS MOVEMENTS ON BOTH UPPER EXTS, AFEBRILE, NO RESP DISTRESS, TRACH BAR WITH 4 LPM O2, SATING 98%, TO CONTINUE TO MONITOR CLOSELY.
[2016-11-14] MEDS: LACOSAMIDE 100 MG TABLET GT SCH ×2 (09:08→22:04)
[2016-11-14] MEDS: levETIRAcetam 1,000 MG in NS 100 ML IV SCH ×2 (09:08→20:54)
[2016-11-14] MEDS: amLODIPine BESYLATE 10 MG TABLET GT SCH (09:09)
[2016-11-14] MEDS: LR 1,000 ML IV SCH (09:37)
[2016-11-14] MEDS: THIAMINE HCL 100 MG TABLET GT SCH (09:37)
[2016-11-14] MEDS: CHLORHEXIDINE GLUCONATE 15 ML/DOSE, 480 ML MM SCH ×2 (09:38→22:04)
[2016-11-14 12:20] VITALS: BP 110/67; PULSE 84; RESP 18; TEMP 98; O2SAT 100
--- NOTE | 2016-11-14 14:00 | NUR ---
NURSE: DR COATES CAME AND SAW THE PT, HE ALSO SPOKE WITH THE PT'S UNCLE, HE EXPLAINED TO HIM HIS NEPHEW'S PRESENT SITUATION, DR COATES ALSO SPOKE WITH DR FOSTER OVER THE PHONE.
--- NOTE | 2016-11-14 15:30 | NUR ---
WOUND RE-EVALUATION: Patient received in a [place] Bed with an IsoFlex SUJATA mattress with low air-loss therapy, awake, non-verbal, and oriented. Patient is unable to turn independently. Tejas Score is a 12. Intrinsic factors that delay wound healing: Chronic Respiratory Failure, Encephalopathy. Extrinsic factors that delay wound healing: Immobility. Microbiology: Blood Culture negative. Wound Assessment: 1) Left Dorsal Hand: 2) Left Medial Lower Extremity, Superior to Malleolus: Open bullae, present on admission. Wound bed is 100% pink. No odor, no drainage. Nandini-wound intact. Recommend continue: Cleanse wounds with normal saline. Pat dry. Put moisture barrier cream onto site. Cover with foam dressing. Perform wound care daily, and as needed for dressing soiling or dislodgement. 3) Left Abdomen: Open bulla. Wound bed is 100% red tissue. No odor, scant sanguineous drainage. Nandini-wound intact. Recommend: Cleanse wound with normal saline. Pat dry. Put moisture barrier cream onto site. Put Hydrogel onto any part of site not covered by barrier cream. Cover with foam dressing. Perform wound care daily, and as needed for dressing soiling or dislodgement. 4) Right Mid Lateral Abdomen: Open bulla. Wound bed is 100% pink tissue. No odor, no drainage. Nandini-wound intact. Recommend continue: Cleanse wound with normal saline. Pat dry. Put moisture barrier cream onto site. Cover with foam dressing. Perform wound care daily, and as needed for dressing soiling or dislodgement. 5) Buttocks: Erythema and non-intact skin from IAD. Recommend: Cleanse wound with normal saline. Pat dry. Put moisture barrier cream onto site. Put Hydrogel onto any part of site not covered by barrier cream. Cover with Sacral foam dressing. Perform wound care daily, and as needed for dressing soiling or dislodgement Also recommend continue: Reposition patient side to side only every 2 hours with pillow support, and off-load pressure areas with pillows for pressure re-distribution (do not place patient on his Craniotomy site). Offload, elevate and float bilateral heels with pillows. Perform skin care and monitor skin integrity Q shift. Use moisture barrier cream on buttocks and other moisture susceptible areas QID and as needed for soiling. Maintain patient on a low air-loss mattress.
[2016-11-14 15:54] VITALS: BP 111/71; PULSE 83; RESP 17; TEMP 98; O2SAT 100
[2016-11-14] MEDS ORDERED: POTASSIUM CHLORIDE IV SCH ×10 (16:30)
[2016-11-14] MEDS ORDERED: TPN CENTRAL IV SCH ×10 (16:30)
[2016-11-14] MEDS ORDERED: SODIUM CHLORIDE IV SCH ×10 (16:30)
[2016-11-14] MEDS ORDERED: [UNRECOGNIZED DRUG - OTHER] IV SCH ×10 (16:30)
[2016-11-14] MEDS: FAT EMULSIONS 250 ML IV SCH (16:34)
--- NOTE | 2016-11-14 18:00 | NUR ---
NURSE: TOTAL CARE DONE, DRESSINGS OF ALL THE WOUNDS ARE CHANGED. TURNED TO SIDES.
--- NOTE | 2016-11-14 20:00 | NUR ---
INITIAL NOTE: PT AWAKE, NONVERBAL. NO S/S OF SOB OR DISTRESS NOTED.TRACH WITH T BAR IN PLACE WITH O2 4 L NC, SAT 99% ;NO S/S OF ANY PAIN NOTED , NO FACIAL GRIMACING NOTED . VITALS ARE STABLE . PICC TO RIGHT UPPER ARM NOTED, DRESSING IS DRY AND INTACT.IV FLUIDS INFUSING WELL AT 50 CC/HR , TPN AT 42 ML/HR AND LIPIDS AT 10CC/HR IS INFUSING WELL , PT TOLERATING WELL. G TUBE ATTACHED TO LOW INTERMITTENT SUCTION, PT REMAINS NPO. G TUBE DRESSING NOTED AND IS DRY AND INTACT, NOTICED DRESSING TO THE ABDOMEN . CUELLO CATHETER IN PLACE AND DRAINING TO GRAVITY,DARK YELLOW URINE NOTED. DRESSING CLEAN DRY AND INTACT ON LEFT ANKLE,LEFT AND R ABDOMEN , LEFT WRIST AND SACRAL AREA . SEIZURE, ASPIRATION AND FALL PRECAUTIONS IN PLACE. CALL LIGHT IN REACH, BED IN LOWEST, LOCKED POSITION AND THE ALARM ON. WILL CONTINUE TO MONITO
[2016-11-14 20:57] VITALS: BP 126/71; PULSE 87; RESP 18; TEMP 97.8; O2SAT 95
[2016-11-14] MEDS: FAMOTIDINE 20 MG TABLET GT SCH (22:03)
[2016-11-14] MEDS: TERAZOSIN HCL 1 MG CAPSULE (HYTRIN) GT SCH (22:05)
--- NOTE | 2016-11-14 22:05 | NUR ---
MEDICATION: MEDICATION CRUSHED AND GIVEN THROUGH GT , GT FLUSHED ; GT CLAMPED .WILL RECONNECT TO SUCTION AFTER AN HR ; PT IS COMFORTABLE ; NOT IN ANY ACUTE DISTRESS; WILL CONTINUE TO MONITOR.
--- NOTE | 2016-11-14 23:30 | NUR ---
SUCTION RECONNECTED: SUCTION RECONNECTED TO LOW SUCTION WILL MONITOR.
[2016-11-15] VITALS (7 sets, daily range): BP systolic 121–153; BP diastolic 58–90; PULSE 71–89; RESP 16–20; TEMP 96.9–97.7; O2SAT 94–100
--- NOTE | 2016-11-15 00:25 | NUR ---
RN ROUNDS: PT APPEARS TO BE SLEEPING, NOT IN ANY ACUTE DISTRESS AT THIS TIME; WILL CONTINUE TO MONITOR.
--- NOTE | 2016-11-15 02:00 | NUR ---
DRESSING/ SPONGE BATH: PT IS INCONTINENT WITH SMALL SOFT BM ;PERICARE AND SPONGE BATH GIVEN ; CLEANED WITH CHG CLOTH ; LINEN AND GOWN CHANGED; ALL DRESSING EXCEPT MID ABDOMEN AND GT SITE WAS CHANGED BY DAY SHIFT , AND THOSE DRESSING ARE STILL CLEAN AND DRY ; DRESSING TO THE MID ABDOMEN A ND GT SITE REMOVED ; NOTICED DRY BLOOD TO THE GT SITE DRESSING ;SITE CLEANED ; PAT DRIED AND APPLIED DRESSING , MID ABDOMEN , NO S/ S OF ANY INFECTION NOTED ; CLEANED WITH NS , PAT DRIED , AND APPLIED ABD PAD .PT IS COMFORTABLE ; NOTICED REDNESS TO THE LEFT EAR , WILL MONITOR .
[2016-11-15] MEDS: PIPERACILLIN/TAZO 3.375 GM in NS 50 ML IV SCH (03:35)
[2016-11-15] MEDS: IPRATROPIUM/ALBUTEROL SULFATE 3 ML AMPUL.NEB INH SCH ×6 (03:58→23:36)
--- NOTE | 2016-11-15 04:30 | NUR ---
RN NOTES: PT IS SLEEPING ,NOT IN ANY ACUTE DISTRESS; WILL CONTINUE TO MONITOR.
[2016-11-15] MEDS: LR 1,000 ML IV SCH (06:08)
[2016-11-15] MEDS: GABAPENTIN 300 MG CAPSULE GT SCH ×3 (06:09→22:37)
[2016-11-15] MEDS: LEVOTHYROXINE SODIUM 0.1 MG TABLET GT SCH (06:09)
[2016-11-15] MEDS: INSULIN REGULAR, HUMAN 100 UNITS/ML, 10 ML VIAL (novoLIN R) SUBCUT PRN ×3 (06:11→18:03)
--- NOTE | 2016-11-15 06:15 | NUR ---
MEDICATION: DUE MEDS GIVEN ; GT CLAMPED FOR ABSORPTION WILL REQUEST DAYSHIFT TO OPEN THE SUCTION LATER
[2016-11-15 06:43] LABS: BASOPHILS % (AUTO) 0.8 % (0.0-2.0); EOSINOPHILS # (AUTO) 0.1 K/uL (0.0-0.4); EOSINOPHILS % (AUTO) 5.9 % (0.0-4.0); HEMATOCRIT 28.4 % (36-54); HEMOGLOBIN 9.1 g/dL (14.0-18.0); LYMPHOCYTES # (AUTO) 0.3 K/uL (1.0-5.5); LYMPHOCYTES % (AUTO) 15.6 % (20.5-51.5); MEAN CORPUSCULAR HEMOGLOBIN 28 pg (27-31); MEAN CORPUSCULAR HGB CONC 32 % (32-36); MEAN CORPUSCULAR VOLUME 87 fL (79.0-98.0); MONOCYTES # (AUTO) 0.2 K/uL (0.0-1.0); MONOCYTES % (AUTO) 8.9 % (1.7-9.3); NEUTROPHILS # (AUTO) 1.4 K/uL (1.8-7.7); NEUTROPHILS % (AUTO) 68.8 % (40.0-70.0); RED BLOOD CELL COUNT(AUTO) 3.25 MIL/uL (4.2-6.2); RED CELL DISTRIBUTION WIDTH 20.9 % (9.0-15.0)
--- NOTE | 2016-11-15 06:59 | NUR ---
CLOSING NOTES: PT IS COMFORTABLE ; NOT IN ANY ACUTE DISTRESS ; NO SIGNIFICANT CHANGES IN THE CONDITION ; NO SEIZURE ACTIVITIES NOTED ; WILL CONTINUE TO MONITOR AND WILL ENDORSE TO NEXT SHIFT NURSE.
[2016-11-15 07:04] LABS: PLATELET COUNT (AUTO) 31 K/uL (130-430)
--- NOTE | 2016-11-15 07:05 | NUR ---
CALLED: PLATELET 31 - DR THAKKAR IS ON THE CASE , WILL NOTIFY .
[2016-11-15 07:13] LABS: CALCIUM 8.3 mg/dL (8.4-11.0); CREATININE 0.44 mg/dL (0.55-1.30); PHOSPHORUS 2.7 mg/dL (2.7-4.5); POTASSIUM 3.8 mmol/L (3.5-5.1)
--- NOTE | 2016-11-15 07:25 | NUR ---
RN NOTES: MD PAGED SUBBIAH TO NOTIFY THE PLATELET , REPORT GIVEN TO RN AT BEDSIDE ; PT IS COMFORTABLE ; REQUESTED RN TO FOLLOW UP WITH MD CALL
--- NOTE | 2016-11-15 07:30 | NUR ---
rn notes: patient is awake both eyes open. afebrile. vss stable. has t bar with 4lnc of oxygen in placed. hob elevated. no sob nor other distress noted. rt side of the head turn to the left sides. has s/p craniotomy incision noted. open to air. lungs bilaterally with crackles at the bases. abdomen distended but positive bowel sounds. has g tube connected to low intermittent suction. draining brownish color. call lights within reach. safety measures maintained. on low air mattress.
--- NOTE | 2016-11-15 07:40 | NUR ---
Dr Chavez called regarding the platelet result 31. no orders made so far.
--- NOTE | 2016-11-15 09:00 | NUR ---
Dr Rodrigues notified regarding the magnesium level is 1.4. made orders.
[2016-11-15] MEDS ORDERED: MAGNESIUM SULFATE 50 ML IV ONE (09:30)
--- NOTE | 2016-11-15 09:30 | NUR ---
due medication given as ordered. still iv antibiotic keppra. made comfortable.
[2016-11-15] MEDS: THIAMINE HCL 100 MG TABLET GT SCH (09:55)
[2016-11-15] MEDS: LACOSAMIDE 100 MG TABLET GT SCH ×2 (09:55→22:38)
[2016-11-15] MEDS: levETIRAcetam 1,000 MG in NS 100 ML IV SCH ×2 (09:56→22:37)
[2016-11-15] MEDS: amLODIPine BESYLATE 10 MG TABLET GT SCH (09:58)
--- NOTE | 2016-11-15 11:00 | NUR ---
g tube connected to low intermittent suction. draining brownish color.
[2016-11-15] MEDS: CHLORHEXIDINE GLUCONATE 15 ML/DOSE, 480 ML MM SCH ×2 (11:45→22:39)
--- NOTE | 2016-11-15 12:00 | NUR ---
repostioned to sides. pillows on the back. both legs elevated on pillows.
--- NOTE | 2016-11-15 15:00 | NUR ---
family is at the bedside. suction at this time.
--- NOTE | 2016-11-15 16:38 | NUR ---
turn to sides. no bowel movement noted. dressing still dry/intact. will continue to monitor patients status.
--- NOTE | 2016-11-15 17:00 | NUR ---
latest bs is 144mg/dl. no coverage given at this time.
[2016-11-15] MEDS: FAT EMULSIONS 250 ML IV SCH (17:48)
[2016-11-15] MEDS: [UNRECOGNIZED DRUG - OTHER] IV SCH ×10 (17:49)
[2016-11-15] MEDS: SODIUM CHLORIDE IV SCH ×10 (17:49)
[2016-11-15] MEDS: POTASSIUM CHLORIDE IV SCH ×10 (17:49)
[2016-11-15] MEDS: TPN CENTRAL IV SCH ×10 (17:49)
--- NOTE | 2016-11-15 18:30 | NUR ---
Dr Steiner called regarding a family meeting with regarding possible procedure Thursday.. awaiting to call back said it is okay 1300pm.
--- NOTE | 2016-11-15 19:40 | NUR ---
sbar report given to incoming nurse Jasmin JONES
--- NOTE | 2016-11-15 20:00 | NUR ---
Initial PM Note Patient was received lying on an air mattress bed with his both eyes open, but pt is non-verbal. Pt has Tracheostomy in pace with oxygen at 4L/min via T bar. No acute distress noted. Pt's head is turned to the left side. Skin is warm and dry to touch. Pt's abdomen is distended and G tube is connected to low wall suction. G Tube drainage is brownish in color. Arzola cath to gravity drainage noted with yellowish urine. Fall and safety precautions are in place. Call light is with pt. Bed is in the lowest and locked position. Will continue to monitor pt.
--- NOTE | 2016-11-15 22:00 | NUR ---
ROUNDS PATIENT RESTING IN SEMI-FOWLERS POSITION. SEIZURE, FALL, AND ASPIRATION PRECAUTIONS IN PLACE. BED IN LOWEST POSITION, BED ALARM ON, CALL LIGHT WITHIN REACH.
[2016-11-15] MEDS: FAMOTIDINE 20 MG TABLET GT SCH (22:38)
[2016-11-15] MEDS: TERAZOSIN HCL 1 MG CAPSULE (HYTRIN) GT SCH (22:39)
[2016-11-16] MEDS: INSULIN REGULAR, HUMAN 100 UNITS/ML, 10 ML VIAL (novoLIN R) SUBCUT PRN ×5 (00:20→23:18)
--- NOTE | 2016-11-16 00:21 | NUR ---
ROUNDS PATIENT IS RESTING IN SEMI-FOWLERS. PATIENT IS NON VERBAL. BOTH EYES ARE OPEN. NO SIGNS OR SYMPTOMS OF DISTRESS NOTED. FLUIDS RUNNING. BED ALARM ON, BED IN LOWEST POSITION. WILL CONTINUE TO MONITOR FREQUENTLY.
[2016-11-16 00:34] VITALS: BP 159/76; PULSE 83; RESP 20; TEMP 97.9; O2SAT 97
--- NOTE | 2016-11-16 02:24 | NUR ---
ROUNDS PATIENT IS RESTING IN SEMI-ROSENBERG'S. NO SIGNS OR SYMPTOMS OF DISTRESS NOTED AT THIS TIME. TPN, LIPIDS, AND FLUIDS RUNNING. G-TUBE ON LOW CONTINUOUS SUCTION. BED IN LOWEST POSITION, BED ALARM ON, CALL LIGHT WITHIN REACH. WILL CONTINUE TO MONITOR.
--- NOTE | 2016-11-16 04:02 | NUR ---
ROUNDS PATIENT CLEANED AFTER BOWEL MOVEMENT, LINENS CHANGED, AND REPOSITIONED. SEIZURE, ASPIRATION, AND FALL PRECAUTIONS IN PLACE. NO SIGNS OR SYMPTOMS OF DISTRESS NOTED. BED IN LOWEST POSITION, BED ALARM ON, CALL LIGHT WITHIN REACH. WILL CONTINUE TO MONITOR FREQUENTLY.
[2016-11-16] MEDS: IPRATROPIUM/ALBUTEROL SULFATE 3 ML AMPUL.NEB INH SCH ×5 (04:31→23:38)
[2016-11-16 06:20] VITALS: BP 148/76; PULSE 92; RESP 20; TEMP 97.6; O2SAT 97
[2016-11-16] MEDS: LEVOTHYROXINE SODIUM 0.1 MG TABLET GT SCH (06:21)
[2016-11-16] MEDS: GABAPENTIN 300 MG CAPSULE GT SCH ×3 (06:21→22:26)
[2016-11-16] MEDS: LR 1,000 ML IV SCH ×2 (06:25→21:00)
--- NOTE | 2016-11-16 06:38 | NUR ---
CLOSING NOTES PATIENT IN SEMI-FOWLERS POSITION IN BED RESTING. NO SIGNS OR SYMPTOMS OF DISTRESS NOTED. FLUIDS RUNNING. BED IN LOWEST POSITION, BED ALARM ON, CALL LIGHT WITHIN REACH. SEIZURE, ASPIRATION, AND FALL PRECAUTIONS IN PLACE. ALL NEEDS MET THROUGHOUT SHIFT. WILL ENDORSE CARE TO THE DAY SHIFT NURSE.
[2016-11-16 06:53] LABS: CALCIUM 8.5 mg/dL (8.4-11.0); CREATININE 0.5 mg/dL (0.55-1.30); POTASSIUM 3.9 mmol/L (3.5-5.1)
[2016-11-16 07:10] LABS: HEMATOCRIT 29.9 % (36-54); HEMOGLOBIN 9.6 g/dL (14.0-18.0); MEAN CORPUSCULAR HEMOGLOBIN 29 pg (27-31); MEAN CORPUSCULAR HGB CONC 32 % (32-36); MEAN CORPUSCULAR VOLUME 88 fL (79.0-98.0); RED BLOOD CELL COUNT(AUTO) 3.38 MIL/uL (4.2-6.2)
[2016-11-16 07:25] LABS: WHITE BLOOD COUNT (AUTO) 1.6 K/uL (4.8-10.8)
[2016-11-16 07:26] LABS: PLATELET COUNT (AUTO) 28 K/uL (130-430)
[2016-11-16 08:05] VITALS: BP 114/68; PULSE 95; RESP 18; TEMP 97.7; O2SAT 97
--- NOTE | 2016-11-16 08:05 | NUR ---
INITIAL ROUNDS Received pt pt with eyes open, does not track, non-verbal, no s/s resp distress, no s/s seizure activity, no s/s pain or discomfort. Reverse isolation precautions in place due to low WBCs. Seizure precautions in place. HOB elevated for aspiration precautions. On air mattress-will reposition pt Q2hr as ordered with pillow support and heels off-loaded for skin care. IVF, TPN & Lipids infusing well to JOCE PICC at ordered rates with jno s/s infection to site. Noted G-tube to LIS with light beige drainage noted. BLE with SCDs in place. Side rails up x3, bed alarm on for safety.
[2016-11-16 09:57] LABS: ATYPICAL LYMPHOCYTES % 0 % (0-0); BAND % (MANUAL) 0 % (0-6); LYMPHOCYTES % (MANUAL) 20 % (20-46)
[2016-11-16 09:58] LABS: EOSINOPHILS % (MANUAL) 7 % (0-7)
[2016-11-16 09:59] LABS: BASOPHILS % (MANUAL) 0 % (0-2); MONOCYTES % (MANUAL) 10 % (0-11)
--- NOTE | 2016-11-16 10:05 | NUR ---
ROUNDS Pt lying in bed with eyes open, no s/s resp distress, no s/s seizure activity, no s/s pain or discomfort. Pt repositioned with pillow support and heels off-loaded for skin care. All precautions remain in place.
[2016-11-16] MEDS: LACOSAMIDE 100 MG TABLET GT SCH ×2 (10:50→22:26)
[2016-11-16] MEDS: amLODIPine BESYLATE 10 MG TABLET GT SCH (10:50)
[2016-11-16] MEDS: THIAMINE HCL 100 MG TABLET GT SCH (10:50)
[2016-11-16] MEDS: levETIRAcetam 1,000 MG in NS 100 ML IV SCH ×2 (10:51→22:25)
[2016-11-16] MEDS: CHLORHEXIDINE GLUCONATE 15 ML/DOSE, 480 ML MM SCH ×2 (10:51→22:27)
[2016-11-16 12:12] VITALS: BP 112/61; PULSE 62; RESP 17; TEMP 97; O2SAT 96
--- NOTE | 2016-11-16 12:30 | NUR ---
ROUNDS/MD VISIT Pt resting quietly in bed with no s/s resp distress, no s/s seizure activity, no s/s pain or discomfort. Dr. Rodrigues here and saw pt, pt's family here and Dr. Rodrigues discussed possible J-Tube surgery with family-noted pt's daughter [pt's POA] not here.
--- NOTE | 2016-11-16 13:35 | NUR ---
MD VISIT Dr. Steiner in room discussing possible J-tube surgery with pt's family.
[2016-11-16 16:15] VITALS: BP 130/70; PULSE 85; RESP 18; TEMP 97.4; O2SAT 100
--- NOTE | 2016-11-16 16:15 | NUR ---
ROUNDS Pt resting quietly in bed with no s/s resp distress, no s/s pain or discomfort, no s/s seizure activity. All precautions remain in place.
[2016-11-16] MEDS: POTASSIUM CHLORIDE IV SCH ×10 (17:52)
[2016-11-16] MEDS: FAT EMULSIONS 250 ML IV SCH (17:52)
[2016-11-16] MEDS: SODIUM CHLORIDE IV SCH ×10 (17:52)
[2016-11-16] MEDS: TPN CENTRAL IV SCH ×10 (17:52)
[2016-11-16] MEDS: [UNRECOGNIZED DRUG - OTHER] IV SCH ×10 (17:52)
--- NOTE | 2016-11-16 19:00 | NUR ---
CLOSING ROUNDS Pt lying in bed with eyes open, no s/s resp distress, no s/s pain or discomfort, no s/s seizure activity. Reverse Isolation precautions maintained throughout shift. IVF, TPN & Lipids infusing well via JOCE PICC at ordered rates. G-tube to LIS with light beige drainage noted. Aspiration, skin and safety precautions remain in place.
--- NOTE | 2016-11-16 19:23 | NUR ---
Initial PM Note Patient was received lying on an air mattress bed with both eyes open, but pt is non-verbal. Pt is able to track with his eyes. Pt has Tracheostomy in pace with oxygen at 2L/min via T bar. No respiratory distress noted. Pt's head is turned to the left side. Skin is warm and dry to touch. Pt's abdomen is distended and soft to touch. G tube is connected to low wall suction and G Tube drainage is brownish in color. Multiple foam dressings noted and they are dry and intact. Arzola cath to gravity drainage noted with yellowish urine. Fall and safety precautions are in place. Call light is with pt. Bed is in the lowest and locked position. Will continue to monitor pt.
[2016-11-16 19:30] VITALS: BP 124/71; PULSE 89; RESP 20; TEMP 97.9; O2SAT 96
--- NOTE | 2016-11-16 21:00 | NUR ---
Rounds Pt is resting quietly in bed. No seizure activity noted. IVF, TPN and Lipids are infusing well via SERGIO PICC.
[2016-11-16] MEDS: FAMOTIDINE 20 MG TABLET GT SCH (22:26)
[2016-11-16] MEDS: TERAZOSIN HCL 1 MG CAPSULE (HYTRIN) GT SCH (22:27)
--- NOTE | 2016-11-16 23:18 | NUR ---
Blood Sugar Accucheck 156 and 2 units Regular Insulin given SQ. Skin remains warm and dry to touch.
[2016-11-17 00:20] VITALS: BP 147/72; PULSE 82; RESP 16; TEMP 98.1; O2SAT 98
--- NOTE | 2016-11-17 01:30 | NUR ---
Rounds Pt is sleeping comfortably in bed and no resp distress noted. Call light is with pt.
[2016-11-17] MEDS: LR 1,000 ML IV SCH (03:13)
--- NOTE | 2016-11-17 03:30 | NUR ---
Rounds Pt is sleeping comfortably in bed. No seizure activity or resp distress noted.
[2016-11-17 04:25] VITALS: BP 153/81; PULSE 85; RESP 18; TEMP 97.6; O2SAT 99
[2016-11-17] MEDS: IPRATROPIUM/ALBUTEROL SULFATE 3 ML AMPUL.NEB INH SCH ×6 (04:55→23:08)
--- NOTE | 2016-11-17 05:00 | NUR ---
ROUNDS PT IS SLEEPING WITHOUT ANY DISTRESS NOTED.
--- NOTE | 2016-11-17 05:30 | NUR ---
DRESSING CHANGES DRESSING TO SACRUM WAS REMOVED AND THE WOUND CLEANSED WITH NS. NOTED SMALL DENUDED AREA WITH RED WOUND BED. AREA WAS PAT DRIED, BARRIER CREAM APPLIED AND SACRAL FOAM DRESSING APPLIED. LEFT ABDOMINAL DRESSING REMOVED AND CLEANSED WITH NS. BLISTER ALMOST FULLY HEALED AND WAS PAT DRIED BARRIER CREAM APPLIED TO THE PERIWOUND, FOLLOWED BY FOAM DRESSING. DRESSING TO MID ABDOMEN WAS REMOVED AND RN CLEANSED INCISION SITE WITH NS. NO DRAINAGE NOTED. INCISION IS HEALING WELL AND WAS PAT DRIED WITH NS AND THEN COVERED WITH ABD PAD. G TUBE SITE DRESSING REMOVED. SMALL AMOUNT OF DRIED BLOODY DRAINAGE. G TUBE SITE WAS CLEANSED WITH NS, PAT DRIED AND DRAIN SPONGE WAS APPLIED. DRESSINGS TO LEFT ANKLE, LEFT WRIST, RIGHT ABDOMEN WERE REMOVED AND THE AREAS WERE CLEANSED WITH NS, FOLLOWED BY BARRIER CREAM AND FOAM DRESSINGS. WOUNDS ALMOST FULLY HEALED AND NO DRAINAGE NOTED.
[2016-11-17] MEDS: GABAPENTIN 300 MG CAPSULE GT SCH ×3 (06:02→21:41)
[2016-11-17] MEDS: LEVOTHYROXINE SODIUM 0.1 MG TABLET GT SCH (06:03)
[2016-11-17] MEDS: INSULIN REGULAR, HUMAN 100 UNITS/ML, 10 ML VIAL (novoLIN R) SUBCUT PRN ×2 (06:07→12:06)
--- NOTE | 2016-11-17 06:30 | NUR ---
CLOSING NOTES PT IS RESTING QUIETLY IN BED AND NO DISTRESS NOTED. ALL PT'S NEEDS WERE ATTENDED TO. NO FALL OR INJURY NOTED THIS SHIFT. WILL ENDORSE TO DAY SHIFT NURSE.
[2016-11-17 07:11] LABS: HEMOGLOBIN 9.5 g/dL (14.0-18.0); MEAN CORPUSCULAR HEMOGLOBIN 28 pg (27-31); MEAN CORPUSCULAR HGB CONC 32 % (32-36); MEAN CORPUSCULAR VOLUME 88 fL (79.0-98.0); RED BLOOD CELL COUNT(AUTO) 3.42 MIL/uL (4.2-6.2); RED CELL DISTRIBUTION WIDTH 19.2 % (9.0-15.0)
[2016-11-17 07:15] LABS: PLATELET COUNT (AUTO) 20 K/uL (130-430); WHITE BLOOD COUNT (AUTO) 1.6 K/uL (4.8-10.8)
--- NOTE | 2016-11-17 07:15 | NUR ---
Handoff report at this time. Patient resting calmly.
[2016-11-17 07:16] LABS: ALBUMIN 2.2 g/dL (3.4-4.8); CALCIUM 8.3 mg/dL (8.4-11.0); CREATININE 0.44 mg/dL (0.55-1.30); PHOSPHORUS 3.2 mg/dL (2.7-4.5); POTASSIUM 3.7 mmol/L (3.5-5.1); TOTAL BILIRUBIN 1.6 mg/dL (0.0-1.0); TOTAL PROTEIN, SERUM 7.5 g/dL (6.4-8.3)
--- NOTE | 2016-11-17 07:27 | NUR ---
Critical labs call to provider, Doctor Chavez, for patient.
[2016-11-17 08:34] LABS: BASOPHILS % (MANUAL) 0 % (0-2); EOSINOPHILS % (MANUAL) 3 % (0-7); LYMPHOCYTES % (MANUAL) 20 % (20-46); MONOCYTES % (MANUAL) 8 % (0-11)
[2016-11-17 09:15] VITALS: BP 141/77; PULSE 82; RESP 20; TEMP 97.5; O2SAT 97
--- NOTE | 2016-11-17 09:44 | NUR ---
Rounds with reposition and assessment. Appears to be a sepsis risk. Will notify provider.
--- NOTE | 2016-11-17 10:02 | NUR ---
Reposition of the patient with HEAT SEAL OPERATOR.
[2016-11-17] MEDS: amLODIPine BESYLATE 10 MG TABLET GT SCH (10:55)
[2016-11-17] MEDS: LACOSAMIDE 100 MG TABLET GT SCH ×2 (10:55→21:45)
[2016-11-17] MEDS: levETIRAcetam 1,000 MG in NS 100 ML IV SCH (10:59)
[2016-11-17] MEDS: THIAMINE HCL 100 MG TABLET GT SCH (11:00)
[2016-11-17] MEDS: CHLORHEXIDINE GLUCONATE 15 ML/DOSE, 480 ML MM SCH ×2 (11:01→23:29)
--- NOTE | 2016-11-17 11:07 | NUR ---
Rounds to patient. Patient with eyes open at this time. Given oral care. Dressing check.
[2016-11-17] MEDS ORDERED: [UNRECOGNIZED DRUG - OTHER] IV SCH ×20 (11:30→18:00)
[2016-11-17] MEDS ORDERED: POTASSIUM CHLORIDE IV SCH ×20 (11:30→18:00)
[2016-11-17] MEDS ORDERED: TPN CENTRAL IV SCH ×20 (11:30→18:00)
[2016-11-17] MEDS ORDERED: SODIUM CHLORIDE IV SCH ×20 (11:30→18:00)
--- NOTE | 2016-11-17 12:10 | NUR ---
Rounds for accucheck. Bedside safety and repositioning.
[2016-11-17 12:20] VITALS: BP 118/69; PULSE 82; RESP 16; TEMP 96.9; O2SAT 96
--- NOTE | 2016-11-17 13:45 | NUR ---
ROUNDS FOR ORAL CARE, G-TUBE SUCTION CHECK, AND REPOSITIONING.
--- NOTE | 2016-11-17 14:31 | NUR ---
Doctor Rodrigues rounds. Concurs with Doctor Marshall, no sepsis protocol. Doctor Rodrigues and Doctor Steiner agree no surgery indicated at this time.
--- NOTE | 2016-11-17 14:39 | NUR ---
DISCHARGE PLANNING Faxed referral to [facility] for possible discharge back to SNF tomorrow. Will follow up.
--- NOTE | 2016-11-17 15:50 | NUR ---
DOCTOR JAXON REQUESTS TUBE FEEDING BEGIN. TUBE FEED UP AT THIS TIME.
[2016-11-17 16:39] VITALS: BP 159/83; PULSE 81; RESP 16; TEMP 97.4; O2SAT 97
--- NOTE | 2016-11-17 17:00 | NUR ---
ROPE TOW OPERATOR AND NIGHT PATROL INSPECTOR ASSIST WITH DRESSING CHANGES. PATIENT PERICARE AND REPOSITION.
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
--- NOTE | 2016-11-17 19:50 | NUR ---
Start of shift notes Received pt.in bed, seemed comfortable in bed. Breathing even and non labored, on T-bar at 2L/NC. On GT feeding at 30ml./hr, tolerating feeding well, no residual. Pt.with page cath draining red-pink tinged urine output. Dressings to coccyx area, L foot, L arm, and paige.abdomen intact. Noted with paige.abdomen bruising. Repositioned pt.
[2016-11-17 20:00] VITALS: BP 119/68; PULSE 71; RESP 18; TEMP 98.6; O2SAT 96
[2016-11-17] MEDS: levETIRAcetam 500 MG TABLET PO SCH (21:45)
[2016-11-17] MEDS: TERAZOSIN HCL 1 MG CAPSULE (HYTRIN) GT SCH (21:45)
[2016-11-17] MEDS: FAMOTIDINE 20 MG TABLET GT SCH (21:46)
--- NOTE | 2016-11-17 22:00 | NUR ---
Nurse rounds Due med.given. Repositioned pt.
[2016-11-18] VITALS (8 sets, daily range): BP systolic 91–160; BP diastolic 56–85; PULSE 20–79; RESP 14–20; TEMP 96.2–98; O2SAT 97–99
--- NOTE | 2016-11-18 00:15 | NUR ---
Nurse rounds Repositioned pt.
--- NOTE | 2016-11-18 02:15 | NUR ---
Nurse rounds Repositioned pt.
[2016-11-18] MEDS: IPRATROPIUM/ALBUTEROL SULFATE 3 ML AMPUL.NEB INH SCH ×4 (02:31→19:43)
--- NOTE | 2016-11-18 04:15 | NUR ---
Nurse rounds Repositioned pt.
[2016-11-18] MEDS: LR 1,000 ML IV SCH (06:17)
[2016-11-18] MEDS: LEVOTHYROXINE SODIUM 0.1 MG TABLET GT SCH (06:17)
[2016-11-18] MEDS: GABAPENTIN 300 MG CAPSULE GT SCH ×3 (06:18→21:45)
--- NOTE | 2016-11-18 06:30 | NUR ---
End of shift notes Due meds.given. Blood sugar checked. Repositioned pt.in bed.
[2016-11-18 06:45] LABS: BASOPHILS % (AUTO) 0.4 % (0.0-2.0); EOSINOPHILS # (AUTO) 0.1 K/uL (0.0-0.4); EOSINOPHILS % (AUTO) 4.4 % (0.0-4.0); HEMATOCRIT 30.1 % (36-54); HEMOGLOBIN 9.7 g/dL (14.0-18.0); LYMPHOCYTES # (AUTO) 0.3 K/uL (1.0-5.5); MEAN CORPUSCULAR HEMOGLOBIN 28 pg (27-31); MEAN CORPUSCULAR HGB CONC 32 % (32-36); MEAN CORPUSCULAR VOLUME 88 fL (79.0-98.0); MONOCYTES # (AUTO) 0.2 K/uL (0.0-1.0); MONOCYTES % (AUTO) 12.4 % (1.7-9.3); NEUTROPHILS % (AUTO) 63.8 % (40.0-70.0); RED BLOOD CELL COUNT(AUTO) 3.43 MIL/uL (4.2-6.2)
[2016-11-18 07:09] LABS: CALCIUM 8.6 mg/dL (8.4-11.0); CREATININE 0.38 mg/dL (0.55-1.30); POTASSIUM 3.7 mmol/L (3.5-5.1)
[2016-11-18 07:14] LABS: NEUTROPHILS # (AUTO) 0.9 K/uL (1.8-7.7)
[2016-11-18 07:17] LABS: PLATELET COUNT (AUTO) 19 K/uL (130-430); WHITE BLOOD COUNT (AUTO) 1.5 K/uL (4.8-10.8)
--- NOTE | 2016-11-18 08:00 | NUR ---
initial notes rec patient awake opens eyes but non verbally responsive.resp easy and unlabored , with a trache connected to a a t bar. suctioned at intervals with mod amount of thick phlegm.hob slightly elevated and a gt patent and feedings veronica well at 30 cc. with 5 cc residual. bed in low position and side rails up and locked. will continue to monitor patient.
[2016-11-18] MEDS: amLODIPine BESYLATE 10 MG TABLET GT SCH (09:00)
[2016-11-18] MEDS: LACOSAMIDE 100 MG TABLET GT SCH ×2 (09:53→21:44)
[2016-11-18] MEDS: levETIRAcetam 500 MG TABLET PO SCH ×2 (09:53→21:45)
[2016-11-18] MEDS: CHLORHEXIDINE GLUCONATE 15 ML/DOSE, 480 ML MM SCH ×2 (09:54→21:45)
[2016-11-18] MEDS: THIAMINE HCL 100 MG TABLET GT SCH (09:54)
--- NOTE | 2016-11-18 10:00 | NUR ---
rounds family in the room with patient. pt is comfortable, am care rendered then turned and repositioned for comfort.gt site with red old blood was cleaned and covered with drained sponge.also incision on the left abd side was covered with abd dressing.
--- NOTE | 2016-11-18 12:00 | NUR ---
rounds turned repositioned for comfort. gt feedings veronica well. no residual noted. suctioned prn obtaining small amount of thick phlegm.
--- NOTE | 2016-11-18 15:18 | NUR ---
rounds wound care at the bedside with cindi ulrich . no sob noted. turned repositioned for comfort.
--- NOTE | 2016-11-18 15:18 | NUR ---
WOUND RE-EVALUATION: Patient received in a [place] Bed with an IsoFlex SUJATA mattress with low air-loss therapy, awake, non-verbal, and oriented. Patient is unable to turn independently. Tejas Score is a 12. Intrinsic factors that delay wound healing: Chronic Respiratory Failure, Encephalopathy. Extrinsic factors that delay wound healing: Immobility. Microbiology: Blood Culture negative. Wound Assessment: 1) Left Dorsal Hand: 2) Left Medial Lower Extremity, Superior to Malleolus: Open bullae, present on admission. Wound bed is 100% pink. No odor, no drainage. Nandini-wound intact. Appears to have resolved. Recommend continue: Cleanse wounds with normal saline. Pat dry. Put Calmoseptine cream onto site. Perform wound care daily, and as needed for dressing soiling or dislodgement. 3) Left Abdomen: Open bulla. Wound bed is 100% pink tissue. No odor, no drainage. Nandini-wound intact. Appears to have resolved. Recommend: Cleanse wound with normal saline. Pat dry. Put Calmoseptine cream onto site. Put Hydrogel onto any part of site not covered by barrier cream. Cover with foam dressing. Perform wound care daily, and as needed for dressing soiling or dislodgement. 4) Right Mid Lateral Abdomen: Open bulla. Wound bed is 100% pink tissue. No odor, no drainage. Nandini-wound intact. Recommend continue: Cleanse wound with normal saline. Pat dry. Put Calmoseptine cream onto site. Cover with foam dressing. Perform wound care daily, and as needed for dressing soiling or dislodgement. 5) Buttocks: Erythema and non-intact skin from IAD. Recommend continue: Cleanse wound with normal saline. Pat dry. Put Calmoseptine cream onto site. Put Hydrogel onto any part of site not covered by barrier cream. Cover with Sacral foam dressing. Perform wound care daily, and as needed for dressing soiling or dislodgement. 6) Left Ear Scapha: Abrasion. Small lateral linear area with red tissue visible. No odor, scant sanguineous drainage. Recommend continue: Cleanse wound with normal saline. Pat dry. Put Calmoseptine cream onto site. Cover with foam dressing. Perform wound care daily, and as needed for dressing soiling or dislodgement. Also recommend continue: Reposition patient side to side only every 2 hours with pillow support, and off-load pressure areas with pillows for pressure re-distribution (do not place patient on his Craniotomy site). Offload, elevate and float bilateral heels with pillows. Perform skin care and monitor skin integrity Q shift. Use Calmoseptine cream on buttocks and other moisture susceptible areas QID and as needed for soiling. Maintain patient on a low air-loss mattress.
--- NOTE | 2016-11-18 16:04 | NUR ---
DC PLANNING Called [facility], ph [phone], & spoke dede Princess states no beds today possible bed tomorrow. Addendum: 11/18/16 at 1634 by Page Ramos DP DC order back to SNF. Called [facility] spoke with Kendall patient assigned to room 31 RN to report [phone], bed available anytime. KAREN Hernandez made aware. Spoke with patient daughter Monique Fitzpatrick [phone] who is agreeable with discharge back to [facility] today. Called [facility] ambulance [phone] spoke with Yi tsang [facility] ([facility]) transport on will call. Placed transportation packet in nurses station.
--- NOTE | 2016-11-18 16:39 | NUR ---
Nutrition F/U Admitting Diagnosis Aspiration pneumonia, severe protein malnutrition Reviewed Pertinent Medical/Surgical Hx Other Medical Record Medical History Comment: Chronic respiratory failure, s/p tracheostomy, liver cirrhosis, craniotomy, TBI, recent [place] GT placement per MD notes Subjective Information Pt seen resting in bed, +aphasic, trach to T-bar, and Fibersource HN TF infusing at 30 ml/hr, and uncle at bedside. RD notified RN regarding changing TF formulas; she stated she would swap out for MD order of Isosource 1.5. RN reports that pt has been tolerating TF w/ water flush well w/ about 5 ml residuals. Per MD orders, plans for D/C and transfer back to [facility]. Pt no longer on TPN w/ lipids. Per EMR, TF Intakes: 360 ml 11/18/16. Residuals: 0 ml 11/13/16. Active bowel sounds. Current TF support order is inadequate at this time, as it provides 1080 kcal/day, 49 gm protein/day, and 850 ml free water/day. This meets 70% of lower end of estimated nutritional requirements. Pt is not appropriate for nutrition education. Current Diet Order/Nutrition Support Isosource 1.5 at 30 ml/hr, Free Water Flush: 50 ML Q4H via GT Patient/Significant Other Unable To Verbalize Education Provided Not Indicated Pertinent Medications Reviewed Pertinent Labs Reviewed WBC 1.5 L, Hgb 9.7 L/Hct 30.4 L, BG 129 H 11/12/16: TG 66 WNL Height (Feet) 5 feet Height (Inches) 6.00 inches Weight (Pounds) 152 pounds (admission); Bedscale wt: 153.8 lb, 70 kg (11/13/16) Weight (Calculated Kilograms) 68.910855 kilograms Patient Weight 68.946 kg Body Mass Index 24.53 kg/m2 %IBW 106 [place]/Adjusted Body Weight IBW: 142 lb, 65 kg. Adj IBW (quadriplegia): 124 lb, 56 kg Recent Weight Change No Weight Status Appropriate Food Allergies Unable to assess Usual Diet At Home Not available upon RD hard chart review; pt is from [facility] Skin Integrity Comment: Tejas scale: 12. Per Counter Checker note 11/14/16: 1) Left Dorsal Hand: 2) Left Medial Lower Extremity, Superior to Malleolus: Open bullae, present on admission. 3) Left Abdomen: 4) Right Mid Lateral Abdomen: Open bullae. 5) Buttocks: Erythema and non-intact skin from IAD. Estimated Energy Expenditure (kcals/day) 1021-8250 kcal/day (BEE x 1-1.2 CBW for maintenance) Estimated Protein Required (g/day) 69-83 gm/day (1-1.2 gm/kg CBW for acute state) Estimated Fluid Required (l/day) 1.6-1.9 L/day (1 ml/kcal/day for maintenance) Problem/Etiology/Signs/Symptoms Inadequate nutritional intakes related to complicated GI function as evidenced by GE reflux upon Gastrografin study, need for JT placement, and NPO status unable to meet optimal nutritional requirements. *improved, pt now on TPN support Expected Outcomes/Goals - Monitor provision of EN support w/ goal of pt meeting at least 50% of estimated nutritional needs, labs trending WNL, normal GI function, and skin integrity/wt maintenance Dietitian Recommendations * Consider Isosource 1.5 at 45 ml/hr, Free Water Flush: 200 ml Q6h via GT Provides: 1620 kcal/day, 73 gm protein/day, and 1625 ml free water/day Meets: 105% of lower end of estimated caloric needs and 106% of lower end of estimated protein needs Follow Up High Risk: F/U in 2-3 days
--- NOTE | 2016-11-18 17:30 | NUR ---
rounds informed family at bedside re pt transfer to [facility]. gt feeding to well. no sob noted. suctioned at intervals.
--- NOTE | 2016-11-18 18:30 | NUR ---
closing notes no hypo hyperglycemic reaction noted. gt feeding veronica well and no residual noted. bed in low position and side rails up and locked. no acute distress noted.
--- NOTE | 2016-11-18 19:30 | NUR ---
PM ASSESSMENT PT. IS NON-VERBAL, VITAL SIGNS STABLE, NO DISTRESS NOTED, NO S/S OF PAIN OR DISCOMFORT, FAMILY AT BEDSIDE UPDATED WITH PLAN OF CARE, NOTED WITH DRESSING TO LEFT EAR IN PLACE, GT-FEEDING FIBERSOURCE @ 30 CC/HR, NOTED WITH PICC LINE TO SERGIO DOUBLE LUMEN, DRESSING DRY, CLEAN, INTACT. NOTED WITH CUELLO CATHETER DRAINING TO GRAVITY, HEELS OFFLOADED WITH PILLOW.
--- NOTE | 2016-11-18 19:45 | NUR ---
REPORT GIVEN TO HARJIT REPORT GIVEN TO NURSE HARJIT LOMBARDI STATED DON UNABLE TO ACCEPT PT. DUE TO NEUTROPENIC PRECAUTIONS, WILL PRASHANT CALLES.
--- NOTE | 2016-11-18 19:55 | NUR ---
DR. COATES PAGED AND SPOKE WITH DR. JAXON MD SAID OK TO DISCONTINUE NEUTROPENIC PRECAUTIONS UPON TRANSFER.
--- NOTE | 2016-11-18 21:01 | NUR ---
[facility] UNABLE TO ACCEPT PT. AT THIS TIME SPOKE WITH PRECIOUS FROM [facility], SHE STATED SHE SPOKE WITH HER DON, AND THEY ARE UNABLE TO ACCEPT PT. DUE TO WHITE CELL COUNT 1.5, WILL NOTIFY DR. COATES.
--- NOTE | 2016-11-18 21:11 | NUR ---
PAGED: I CALLED [facility] TO CANCELLED TRANSFER FOR [place], MASOOD I SPOKE WITH KAREN
--- NOTE | 2016-11-18 21:17 | NUR ---
NOTIFIED DR. JAXON COATES NOTIFIED THAT [facility] DENIED TRANSFER OF PT. DUE TO WBC 1.5, SAID OK TO HOLD DISCHARGE, ALSO GAVE ORDERS TO OYSTER CULLERNICANOR, ORDERS NOTED AND TO BE CARRIED OUT.
--- NOTE | 2016-11-18 21:30 | NUR ---
FAMILY AT BEDSIDE UPDATED WITH PLAN OF CARE FAMILY MEMBER ROSINA SAUNDERS AT BEDSIDE, UPDATED WITH PLAN OF CARE, MADE AWARE PT. WILL NOT BE TRANSFERRED TONIGHT AND RESIDENTIAL APPLIANCE REPAIR TECHNICIAN WILL FOLLOW UP TOMORROW.
[2016-11-18] MEDS: TERAZOSIN HCL 1 MG CAPSULE (HYTRIN) GT SCH (21:44)
[2016-11-18] MEDS: FAMOTIDINE 20 MG TABLET GT SCH (21:45)
--- NOTE | 2016-11-18 22:34 | NUR ---
PAGED DR. COATES TO INFORM HIM [facility] CAN NOW TAKE PT
--- NOTE | 2016-11-18 22:36 | NUR ---
AWARE/STATED ITS TOO LATE TO TRANSFER THE PATIENT [facility] NURSE, AWARE. AMBULANCE CANCELLED.
--- NOTE | 2016-11-18 23:30 | NUR ---
BLOOD XEGID=[id number], NO COVERAGE REQUIRED.
[2016-11-19] MEDS: IPRATROPIUM/ALBUTEROL SULFATE 3 ML AMPUL.NEB INH SCH ×5 (00:06→15:55)
[2016-11-19 00:40] VITALS: BP 131/66; PULSE 89; RESP 16; TEMP 98.3; O2SAT 100
--- NOTE | 2016-11-19 01:20 | NUR ---
RN ROUNDS PT. RESTING QUIETLY, VITAL SIGNS STABLE, NO DISTRESS NOTED, NO S/S OF PAIN OR DISCOMFORT, WILL CONTINUE TO MONITOR.
[2016-11-19] MEDS: LR 1,000 ML IV SCH (02:52)
--- NOTE | 2016-11-19 03:22 | NUR ---
RN ROUNDS PT. RESTING QUIETLY, VITAL SIGNS STABLE, NO DISTRESS NOTED, DENIES PAIN, CALL LIGHT WITHIN REACH, WILL CONTINUE TO MONITOR.
[2016-11-19 04:25] VITALS: BP 143/66; PULSE 94; RESP 19; TEMP 98.5; O2SAT 99
--- NOTE | 2016-11-19 05:20 | NUR ---
CHG BATH PT. RESTING QUIETLY, VITAL SIGNS STABLE, NO DISTRESS NOTED, NO S/S OF PAIN, CHG BATH DONE, NEW GOWN AND LINEN APPLIED.
[2016-11-19] MEDS: LEVOTHYROXINE SODIUM 0.1 MG TABLET GT SCH (06:09)
[2016-11-19] MEDS: GABAPENTIN 300 MG CAPSULE GT SCH (06:09)
--- NOTE | 2016-11-19 06:22 | NUR ---
ACCUCHECK/CLOSING BLOOD EBLOQ=[id number], NO COVERAGE REQUIRED. VITAL SIGNS STABLE, NO DISTRESS NOTED, NO S/S OF PAIN OR DISCOMFORT, NO RESIDUALS NOTED TO G-TUBE FEEDING, SERGIO PICC IN PLACE, CUELLO DRAINING WELL TO GRAVITY. ALL ANTICIPATED NEEDS MET.
[2016-11-19 06:45] LABS: BASOPHILS % (AUTO) 0.2 % (0.0-2.0); EOSINOPHILS % (AUTO) 1.3 % (0.0-4.0); HEMATOCRIT 30.1 % (36-54); HEMOGLOBIN 9.8 g/dL (14.0-18.0); LYMPHOCYTES # (AUTO) 0.3 K/uL (1.0-5.5); LYMPHOCYTES % (AUTO) 10.1 % (20.5-51.5); MEAN CORPUSCULAR HEMOGLOBIN 28 pg (27-31); MEAN CORPUSCULAR HGB CONC 33 % (32-36); MEAN CORPUSCULAR VOLUME 87 fL (79.0-98.0); MONOCYTES # (AUTO) 0.2 K/uL (0.0-1.0); MONOCYTES % (AUTO) 7.5 % (1.7-9.3); NEUTROPHILS # (AUTO) 2.3 K/uL (1.8-7.7); RED BLOOD CELL COUNT(AUTO) 3.47 MIL/uL (4.2-6.2); RED CELL DISTRIBUTION WIDTH 19.9 % (9.0-15.0); WHITE BLOOD COUNT (AUTO) 2.8 K/uL (4.8-10.8)
--- NOTE | 2016-11-19 07:30 | NUR ---
RN OPENING NOTES PT VS STABLE, BUT LUNG SOUNDS DIMINISHED BILATERALLY IN LOWER LOBES. GTUBE PATENT, DRESSING CLEAN. BED IN LOWEST [id number] AND BED ALARM SET, BUT PT IS UNABLE TO DEMONSTRATE UNDERSTANDING OF CALL LIGHT. WILL CONTINUE TO MONITOR
[2016-11-19 07:42] LABS: PLATELET COUNT (AUTO) 21 K/uL (130-430)
[2016-11-19 08:37] VITALS: BP 136/71; PULSE 93; RESP 16; TEMP 97.4; O2SAT 95
[2016-11-19] MEDS: LACOSAMIDE 100 MG TABLET GT SCH (09:41)
[2016-11-19] MEDS: levETIRAcetam 500 MG TABLET PO SCH (09:41)
[2016-11-19] MEDS: amLODIPine BESYLATE 10 MG TABLET GT SCH (09:42)
[2016-11-19] MEDS: THIAMINE HCL 100 MG TABLET GT SCH (09:43)
[2016-11-19] MEDS: CHLORHEXIDINE GLUCONATE 15 ML/DOSE, 480 ML MM SCH (09:45)
--- NOTE | 2016-11-19 10:07 | NUR ---
RN ROUNDS PT APPEARS COMFORTABLE. FLUSHED G-TUBE WITH 50mL STERILE WATER PER ORDER. BED IN LOWEST POSITION AND BED ALARM SET
[2016-11-19 10:58] LABS: NEUTROPHILS % (AUTO) 80.9 % (40.0-70.0)
--- NOTE | 2016-11-19 11:29 | NUR ---
DISCHARGE PLANNING Called [facility] spoke with Kendall in admitting. Faxed requested current labs. Kendall will have DON review and confirm bed assignment for patient discharge today. DCP will follow up. Addendum: 11/19/16 at 1239 by Page JACKSON [facility] with Le[facility] in admitting who stated facility still full, no beds available. Spoke with Kendall at [facility] confirmed patient accepted back assigned to room 31C RN to report [phone] bed available anytime. Spoke with patient daughter Monique Fitzpatrick [phone] who is agreeable with discharge back to [facility] today and requested call back confirming patient discharge. Charge Nurse Mari made aware and will call DCP with time to arrange ambulance. Called [facility] ambulance [phone] spoke with Deneen tsang [facility] ([facility]) transport on will call. Addendum: 11/19/16 at 1407 by Page Ramos DP Called [facility] arranged transport fruit picker machine operator 4pm. Notified patient daughter Monique Fitzpatrick time of ambulance.
[2016-11-19 12:00] VITALS: BP 149/76; PULSE 86; RESP 20; TEMP 98.1; O2SAT 98
--- NOTE | 2016-11-19 12:00 | NUR ---
RN ROUNDS PT IN BED AND APPEARS COMFORTABLE. BED IN LOWEST POSITION AND BED ALARM ARMED
--- NOTE | 2016-11-19 14:00 | NUR ---
RN ROUNDS PT IN BED AND IS SLEEPING. BED IN LOWEST POSITION AND BED ALARM ARMED
[2016-11-19 15:47] VITALS: BP 129/76; PULSE 92; RESP 18; TEMP 98.4; O2SAT 98
--- NOTE | 2016-11-19 16:30 | NUR ---
SPOKE TO PATIENTS DAUGHTER BRADLEY AND INFORMED HER PT IS LEAVING FOR [facility] AT THIS TIME. SHE IS AGREEABLE.
[2016-11-19 16:38] VITALS: BP 129/76; PULSE 92; RESP 20; TEMP 98.6; O2SAT 98
--- NOTE | 2016-11-19 16:58 | NUR ---
DISCHARGE TO [place] PATIENT DISCHARGED WITH PICC LINE AND CUELLO BOTH INTACT. SECURED. PATIENT TRANSFERRED TO [facility] VIA AMBULANCE. ALS WITH RN FOR TRANSPORT. PATIENT STABLE WITH VSS.
== END 2016-11-19 16:58 | DRG 137 ==
LOC: SED 00:50 → STU 03:35
PROVIDERS: ADMIT Internal Medicine; ATTEND Internal Medicine
PROC: 5A1935Z Respiratory Ventilation, Less than 24 Consecutive Hours (ICD-10-PCS; principal; 2016-11-10)
DX: J69.0 Pneumonitis due to inhalation of food and vomit (principal); J96.21 Acute and chronic respiratory failure with hypoxia; G93.40 Encephalopathy, unspecified; E43 Unspecified severe protein-calorie malnutrition; G82.50 Quadriplegia, unspecified; D61.818 Other pancytopenia; Z93.0 Tracheostomy status; K70.30 Alcoholic cirrhosis of liver without ascites; R13.10 Dysphagia, unspecified; L40.9 Psoriasis, unspecified; K21.9 Gastro-esophageal reflux disease without esophagitis; D73.1 Hypersplenism; R16.2 Hepatomegaly with splenomegaly, not elsewhere classified; Z79.899 Other long term (current) drug therapy; Z93.1 Gastrostomy status; Z87.820 Personal history of traumatic brain injury; Z68.24 Body mass index [BMI] 24.0-24.9, adult
CPT/HCPCS: 36415; 36600; 71010; 74240-TC; 80048; 80053; 80061; 82803-TC; 82962; 83605; 83735-TC; 83880; 84100-TC; 84484; 85007; 85025; 85027; 85610-TC; 85730-TC; 87040-TC; 87070-TC; 87081; 87086; 87186-TC; 87205-TC; 93005; 94640; 94760; 96361; 96365; 96375; 99285; J0610; J1644; J1815; J1940; J1953; J2405; J2543; J2930; J3475; J3480; J7030; J7042; J7050; J7060; J7120; J7131

== ENCOUNTER 2016-11-21 23:28 | Emergency (ER) | payer MEDICAID ==
[2016-11-11 11:32] VITALS: Wt 68.0 kg
[2016-11-21 23:30] VITALS: BP 138/70; PULSE 88; RESP 16; TEMP 98.1; O2SAT 100
--- NOTE | 2016-11-21 23:30 | NUR ---
Patient to ER bed 7 to gown for evaluation. Side rails up. Report given to YAQUELIN JONES.
--- NOTE | 2016-11-21 23:41 | NUR ---
Patient sent to ER from [facility] for evaluation of blood in trach tubing. Patient is bedridden, non-verbal, Hx TBI, seizures, page & Gtube. Patient has scant amount of blood in trach tube, appears to originate from the mouth possible due to previous seizure. Trache tube connected to O2 @ 4L/min
--- NOTE | 2016-11-22 00:03 | NUR ---
ER at bedside examining patient.
--- NOTE | 2016-11-22 00:17 | NUR ---
RT at bedside for deep suctioning and trache tube change.
[2016-11-22 00:33] LABS: BASOPHILS # (AUTO) 0.1 K/uL (0.0-0.2); BASOPHILS % (AUTO) 0.6 % (0.0-2.0); EOSINOPHILS # (AUTO) 0.2 K/uL (0.0-0.4); EOSINOPHILS % (AUTO) 1.3 % (0.0-4.0); HEMATOCRIT 30.2 % (36-54); HEMOGLOBIN 9.6 g/dL (14.0-18.0); LYMPHOCYTES # (AUTO) 0.9 K/uL (1.0-5.5); LYMPHOCYTES % (AUTO) 7.9 % (20.5-51.5); MEAN CORPUSCULAR HEMOGLOBIN 28 pg (27-31); MEAN CORPUSCULAR HGB CONC 32 % (32-36); MEAN CORPUSCULAR VOLUME 87 fL (79.0-98.0); MONOCYTES # (AUTO) 0.7 K/uL (0.0-1.0); NEUTROPHILS # (AUTO) 9.8 K/uL (1.8-7.7); NEUTROPHILS % (AUTO) 84.2 % (40.0-70.0); PLATELET COUNT (AUTO) 102 K/uL (130-430); RED BLOOD CELL COUNT(AUTO) 3.47 MIL/uL (4.2-6.2); RED CELL DISTRIBUTION WIDTH 20.2 % (9.0-15.0); WHITE BLOOD COUNT (AUTO) 11.7 K/uL (4.8-10.8)
[2016-11-22 00:40] LABS: INR 1.2 (0.80-1.20); PROTHROMBIN TIME 13.3 SECS (9.5-12.5)
[2016-11-22 00:52] LABS: CALCIUM 8.4 mg/dL (8.4-11.0); CREATININE 0.49 mg/dL (0.55-1.30); POTASSIUM 4.2 mmol/L (3.5-5.1)
[2016-11-22 01:50] VITALS: BP 126/69; PULSE 84; RESP 16; TEMP 98.2; O2SAT 96
--- NOTE | 2016-11-22 01:50 | NUR ---
Patient given written and verbal discharge instructions and verbalizes understanding. ER MD Wynne discussed with patient the results and treatment provided. Patient in stable condition. ID arm band removed. Patient educated on pain management and to follow up with PMD. Pain Scale 0/10. Opportunity for questions provided and answered. Patient picked up by [facility] for transport back to [facility].
--- NOTE | 2016-11-22 01:54 | NUR ---
Called [facility] and gave report to Michael JONES who voiced concerns regarding the continuing bleeding in the trach tube. RN advised that since the tube was changed no new bleeding noted. RN advised that current SNF orders do include to change the trach tube as needed and to suction PRN. Discharge instructions provided, abnormal labs reported.
== END 2016-11-22 01:50 ==
LOC: SED 23:28
DX: R04.1 Hemorrhage from throat (principal); K74.60 Unspecified cirrhosis of liver; Z79.899 Other long term (current) drug therapy
CPT/HCPCS: 36415; 80048; 85025; 85610-TC; 99284

== ENCOUNTER 2016-11-22 07:08 | Inpatient (IN) | payer MEDICAID ==
[~2016-11-22] VITALS: Ht 157.5 cm; Wt 63.0 kg
[2016-11-22 07:08] VITALS: BP 91/58; PULSE 80; RESP 19; TEMP 97.1; O2SAT 100
--- NOTE | 2016-11-22 07:08 | NUR ---
Placed in room 08. Placed on athletic monitor, blood pressure machine and pulse oximeter. To gown for exam. Side rails up. Report given to KAREN Avilez.
--- NOTE | 2016-11-22 07:10 | NUR ---
ER at bedside examining patient.
--- NOTE | 2016-11-22 07:15 | NUR ---
Pt sent from [facility] for evaluation of rectal bleed. Pt h/o traumatic brain injury w/ trach and GT. Pt has hematuria noted. PICC line. Lab acquired and sent to lab
--- NOTE | 2016-11-22 07:30 | NUR ---
MRSA collected and sent.
--- NOTE | 2016-11-22 07:40 | NUR ---
Medication reconciliation completed with information provided by [facility]. Any prior medication reconciliation on file was reviewed and corrected.
[2016-11-22 07:52] LABS: BILIRUBIN,URINE NEGATIVE (NEGATIVE); BLOOD, URINE 3+ (NEGATIVE); CLARITY/URINE CLEAR (CLEAR); COLOR,URINE YELLOW (YELLOW); GLUCOSE,URINE NEGATIVE (NEGATIVE); KETONES,URINE NEGATIVE (NEGATIVE); LEUKOCYTE ESTERASE ,URINE 2+ (NEGATIVE); NITRITE, URINE POSITIVE (NEGATIVE); PROTEIN URINE 1+ (NEGATIVE)
[2016-11-22 07:56] LABS: BASOPHILS % (AUTO) 0.1 % (0.0-2.0); EOSINOPHILS # (AUTO) 0.1 K/uL (0.0-0.4); EOSINOPHILS % (AUTO) 0.6 % (0.0-4.0); HEMATOCRIT 27.6 % (36-54); HEMOGLOBIN 8.9 g/dL (14.0-18.0); LYMPHOCYTES # (AUTO) 0.6 K/uL (1.0-5.5); LYMPHOCYTES % (AUTO) 5.6 % (20.5-51.5); MEAN CORPUSCULAR HEMOGLOBIN 28 pg (27-31); MEAN CORPUSCULAR HGB CONC 32 % (32-36); MEAN CORPUSCULAR VOLUME 88 fL (79.0-98.0); MONOCYTES # (AUTO) 0.7 K/uL (0.0-1.0); MONOCYTES % (AUTO) 6.4 % (1.7-9.3); NEUTROPHILS # (AUTO) 9.8 K/uL (1.8-7.7); NEUTROPHILS % (AUTO) 87.3 % (40.0-70.0); RED BLOOD CELL COUNT(AUTO) 3.15 MIL/uL (4.2-6.2); RED CELL DISTRIBUTION WIDTH 20.6 % (9.0-15.0)
[2016-11-22 07:59] LABS: WHITE BLOOD COUNT (AUTO) 11.2 K/uL (4.8-10.8)
[2016-11-22 07:59] LABS: BACTERIA,URINE FEW /HPF (None Seen); RBC,URINE 50-80 /HPF (0-3); WBC,URINE 20-50 /HPF (0-3)
[2016-11-22 08:00] LABS: MUCUS,URINE 1+ /LPF (None Seen)
[2016-11-22] MEDS ORDERED: PANTOPRAZOLE SODIUM 80 MG in NS 100 ML IV ONE (08:00)
[2016-11-22] MEDS ORDERED: NACL 0.9% 1,000 ML IV ONE (08:00)
[2016-11-22] MEDS ORDERED: cefTRIAXone 1 GM IVPB PREMIX 50 ML IV ONE (08:00)
[2016-11-22 08:02] LABS: CALCIUM 8.6 mg/dL (8.4-11.0); CHLORIDE 101 mmol/L (98-107); CREATININE 0.37 mg/dL (0.55-1.30); GLUCOSE 154 mg/dL (70-99); POTASSIUM 4.1 mmol/L (3.5-5.1); SODIUM SERUM 136 mmol/L (136-145); UREA NITROGEN, BLOOD 28 mg/dL (8-21)
[2016-11-22 08:03] LABS: ANION GAP < 3 (5-15); GFR AFRICAN AMERICAN 327 mL/min (>90); INR 1.2 (0.80-1.20); PROTHROMBIN TIME 13.3 SECS (9.5-12.5)
[2016-11-22 08:06] LABS: ALANINE AMINOTRANSFERASE 23 U/L (12-78); ALBUMIN 2.2 g/dL (3.4-4.8); ASPARTATE AMINOTRANSFERASE 26 U/L (10-37); LIPASE 177 U/L (73-393); TOTAL BILIRUBIN 0.9 mg/dL (0.0-1.0); TOTAL PROTEIN, SERUM 7.3 g/dL (6.4-8.3)
[2016-11-22 08:09] LABS: PLATELET COUNT (AUTO) 61 K/uL (130-430)
[2016-11-22] MEDS ORDERED: D5LR 1,000 ML IV SCH (08:15)
--- NOTE | 2016-11-22 08:15 | NUR ---
Patient will be admitted to care of Dr. Rodrigues. Admitted to Telemetry unit. Will go to room 106A. Summary report printed. Report given to Admission RN.
--- NOTE | 2016-11-22 08:34 | NUR ---
Admission Note Received patient from ER with diagnosis of Rectal Bleed & UTI. No family at bedside. Pt Obtunded unable to orient pt to room, call light, pain management and safety. Pt placed on air mattress, connected to O2 at 10L to T-Bar via trach, pt coughed up moderate amount bloody sputum-suctioned via trach. Noted pt then had a BM with loose, bloody stool. Aspiration, skin and safety precautions in place.
[2016-11-22 08:45] VITALS: BP 111/69; PULSE 80; RESP 18; TEMP 97; O2SAT 100
--- NOTE | 2016-11-22 09:00 | NUR ---
RECEIVED PT IN BED, NO SOB, NO DISTRESS, NOTED THAT PT HAS BLOODY DISCHARGE FROM TRACH AND OLD/DRY BLOOD FROM G-TUBE SITE. G-TUBE IS CLAMPED. IF FLUIDS ON GOING VIA PICC LINE ON RIGHT UA. PT CAME IN WITH CUELLO CATH, CUELLO STATLOCK APPLIED. FAMILY AT BEDSIDE, CALLIGHT IN REACH, BED IN LOW POSITION.
--- NOTE | 2016-11-22 09:00 | NUR ---
CALLED PULMONOLOGY CONSULT TO DR WINSTON ESTES [employer]GER [employer], RE: RESP FAIL
--- NOTE | 2016-11-22 09:01 | NUR ---
CALLED GI CONSULT TO DR ALVARADO, DR ANTUNEZ ROUNDER HAND RE: RECTAL BLEED. SPOKE TO NIKKI
[2016-11-22] MEDS ORDERED: PANTOPRAZOLE SODIUM 40 MG/VIAL (PROTONIX) IVP ONE (09:45)
--- NOTE | 2016-11-22 10:00 | NUR ---
NOTES PT IN BED, PT IS ASLEEP BUT AROUSABLE. NO SOB, NO DISTRESS. CALLIGHT IN REACH. BED IN LOW POSITION.
[2016-11-22] MEDS ORDERED: LOADING DOSE: PANTOPRAZOLE SODIUM 80 MG in NS 100 ML IVP ONE (10:15)
[2016-11-22] MEDS: D5/0.45 NS 1,000 ML IV SCH (10:26)
[2016-11-22] MEDS: PANTOPRAZOLE SODIUM 40 MG in NS 50 ML IV SCH ×2 (11:04→16:54)
--- NOTE | 2016-11-22 12:00 | NUR ---
NOTES PT IN BED, PT IS ASLEEP BUT AROUSABLE. NO SOB, NO DISTRESS. CALLIGHT IN REACH. BED IN LOW POSITION.
[2016-11-22 12:01] VITALS: BP 119/55; PULSE 82; RESP 18; TEMP 96.9; O2SAT 100
[2016-11-22] MEDS ORDERED: levETIRAcetam 500 MG TABLET GT ONE (13:15)
[2016-11-22] MEDS ORDERED: LACOSAMIDE 100 MG TABLET GT ONE (13:15)
[2016-11-22] MEDS ORDERED: TERAZOSIN HCL 1 MG CAPSULE (HYTRIN) GT ONE (13:15)
[2016-11-22] MEDS ORDERED: levETIRAcetam 500 MG TABLET PO ONE (13:15)
[2016-11-22] MEDS ORDERED: THIAMINE HCL 100 MG TABLET GT ONE (13:15)
[2016-11-22 13:57] LABS: BASOPHILS % (AUTO) 0.3 % (0.0-2.0); EOSINOPHILS # (AUTO) 0.1 K/uL (0.0-0.4); EOSINOPHILS % (AUTO) 1.6 % (0.0-4.0); HEMATOCRIT 25.6 % (36-54); HEMOGLOBIN 8.2 g/dL (14.0-18.0); LYMPHOCYTES # (AUTO) 0.8 K/uL (1.0-5.5); LYMPHOCYTES % (AUTO) 12.3 % (20.5-51.5); MEAN CORPUSCULAR HEMOGLOBIN 28 pg (27-31); MEAN CORPUSCULAR HGB CONC 32 % (32-36); MEAN CORPUSCULAR VOLUME 88 fL (79.0-98.0); MONOCYTES # (AUTO) 0.5 K/uL (0.0-1.0); MONOCYTES % (AUTO) 8.3 % (1.7-9.3); NEUTROPHILS # (AUTO) 4.8 K/uL (1.8-7.7); NEUTROPHILS % (AUTO) 77.5 % (40.0-70.0); RED BLOOD CELL COUNT(AUTO) 2.91 MIL/uL (4.2-6.2); WHITE BLOOD COUNT (AUTO) 6.2 K/uL (4.8-10.8)
--- NOTE | 2016-11-22 14:00 | NUR ---
NOTES PT IN BED, PT IS ASLEEP BUT AROUSABLE. NO SOB, NO DISTRESS. CALLIGHT IN REACH. BED IN LOW POSITION. FAMILY AT BEDSIDE, INFORMED SISTER RE BLOOD STRANSFUSION ORDERED.
[2016-11-22 14:20] LABS: PLATELET COUNT (AUTO) 53 K/uL (130-430)
--- NOTE | 2016-11-22 14:27 | NUR ---
NOTES DR COATES WAS HERE AND SPOKE WITH PT'S SISTER ROSINA REBEL PREVIOUS SURGEY AND ADMISSION. ALSO EXPLAINED TO HER RE WHY PATIENT IS BLEEDING.
--- NOTE | 2016-11-22 16:00 | NUR ---
NOTES PT IN BED, EYES CLOSED BUT AROUSABLE. NO SOB, NO DISTRESS. CALLIGHT IN REACH. BED IN LOW POSITION. FAMILY AT BEDSIDE. FAMILY QUESTIONS ANSWERED, ALL NEEDS TAKEN CARE OF.
[2016-11-22 16:21] VITALS: BP 116/61; PULSE 80; RESP 16; TEMP 97.8; O2SAT 97
--- NOTE | 2016-11-22 16:40 | NUR ---
1540 PT SUCTIONED THICK BLOOD TINGED SMALL SECRETIONS. Addendum: 11/22/16 at 1641 by Emmy Thakkar RT Amended: Links added.
[2016-11-22 16:50] VITALS: BP 116/61; PULSE 80
--- NOTE | 2016-11-22 18:00 | NUR ---
NOTES PT IN BED, EYES CLOSED BUT AROUSABLE. NO SOB, NO DISTRESS. CALLIGHT IN REACH. BED IN LOW POSITION. FAMILY AT BEDSIDE. FAMILY QUESTIONS ANSWERED, ALL NEEDS TAKEN CARE OF. PICC LINE DRESSING CHANGED ASEPTICALLY, PT TOELRATED WELL.
--- NOTE | 2016-11-22 18:45 | NUR ---
BT FRESH FROZEN PLASMA INITIATION: Consent signed per DAUGHTER agreeing to administration of blood. Blood has been type and crossmatched. Blood sent from blood bank. Information on unit of blood checked against patient wristband at bedside by two nurses. All information matches. Patient or responsible democrat informed of potential complications associated with blood transfusion. Informed of possible transfusion reaction symptoms. Aware of need to notify nurse at once of itching, shortness of breath, flushing, feeling of impending doom, or other symptoms not previously present. Vital signs taken within 5 minutes prior to initiation of transfusion. RN will remain with patient for first 15 minutes of transfusion at which time vital signs will be re-assessed.
--- NOTE | 2016-11-22 18:52 | NUR ---
CLOSING NOTES, PT IN BED, BED IN LOW POSITION. CALLLIGHT IN REACH. LOW AIR MATTRESS ON CUELLO TO GRAVITY AT FOOT OF BED, DRESSING CHANGED ON ILEANA. BUTTOCKS DUE TO SOILING. PICC CLEAN AND DRY. WILL ENDORSE CARE TO NIGHT RN.
[2016-11-22 20:44] VITALS: BP 109/63; PULSE 92; RESP 18; TEMP 97.9; O2SAT 96
[2016-11-22] MEDS ORDERED: PANTOPRAZOLE SODIUM 40 MG/VIAL (PROTONIX) IVP SCH (21:00)
--- NOTE | 2016-11-22 21:35 | NUR ---
FFP has been started & infusing continue to monitor / .
[2016-11-22] MEDS: LACOSAMIDE 100 MG TABLET GT SCH (21:54)
[2016-11-22] MEDS: levETIRAcetam 500 MG TABLET GT SCH (21:55)
[2016-11-22] MEDS: TERAZOSIN HCL 1 MG CAPSULE (HYTRIN) GT SCH (21:55)
[2016-11-22] MEDS: CHLORHEXIDINE GLUCONATE 15 ML/DOSE, 480 ML MM SCH (21:56)
[2016-11-23] VITALS (18 sets, daily range): BP systolic 97–130; BP diastolic 51–93; PULSE 70–100; RESP 12–20; TEMP 97.9–98.9; O2SAT 97–100
--- NOTE | 2016-11-23 00:54 | NUR ---
PLATELETS have been started & infusing / .
--- NOTE | 2016-11-23 00:54 | NUR ---
Trach suction up right position small amount of sputum respirations regular also unlabored , activity tolerated / .
--- NOTE | 2016-11-23 02:31 | NUR ---
PLATELETS infusing no adverse reaction noted , patient awake this hour .
[2016-11-23] MEDS: PANTOPRAZOLE SODIUM 40 MG in NS 50 ML IV SCH ×6 (05:04→21:30)
[2016-11-23] MEDS: D5/0.45 NS 1,000 ML IV SCH ×2 (05:05→13:40)
--- NOTE | 2016-11-23 05:12 | NUR ---
PROTONIX gtt @ 10 ml hour continued via PICC line Right upper arm / .
--- NOTE | 2016-11-23 05:13 | NUR ---
Wound care sacral coccyx foam dressing applied to open skin areas , kept clean & dry as needed / .
--- NOTE | 2016-11-23 05:15 | NUR ---
Reposition & Turning off loading with pillows comfort measures implemented tracheal suction also tolerated as needed / .
[2016-11-23] MEDS: LEVOTHYROXINE SODIUM 0.1 MG TABLET GT SCH (06:37)
[2016-11-23 07:05] LABS: EOSINOPHILS # (AUTO) 0.1 K/uL (0.0-0.4); LYMPHOCYTES # (AUTO) 0.5 K/uL (1.0-5.5); MONOCYTES # (AUTO) 0.3 K/uL (0.0-1.0)
[2016-11-23 07:25] LABS: BASOPHILS % (AUTO) 0.5 % (0.0-2.0); EOSINOPHILS % (AUTO) 3.1 % (0.0-4.0); LYMPHOCYTES % (AUTO) 20.5 % (20.5-51.5); MEAN CORPUSCULAR HEMOGLOBIN 26 pg (27-31); MEAN CORPUSCULAR HGB CONC 29 % (32-36); MEAN CORPUSCULAR VOLUME 89 fL (79.0-98.0); MONOCYTES % (AUTO) 11.5 % (1.7-9.3); NEUTROPHILS # (AUTO) 1.7 K/uL (1.8-7.7); NEUTROPHILS % (AUTO) 64.4 % (40.0-70.0); RED BLOOD CELL COUNT(AUTO) 2.18 MIL/uL (4.2-6.2); WHITE BLOOD COUNT (AUTO) 2.6 K/uL (4.8-10.8)
[2016-11-23 07:29] LABS: HEMOGLOBIN 6.2 g/dL (14.0-18.0)
[2016-11-23 07:30] LABS: HEMATOCRIT 18.8 % (36-54); PLATELET COUNT (AUTO) 36 K/uL (130-430)
--- NOTE | 2016-11-23 07:35 | NUR ---
rn notes: patient is obtunded. non verbal. afebrile. vss stable. hr 102. bp is 120/64, resp 20. on t bar 2 lnc 100% temp is 98.7. lungs bilaterally with crackles on the bases. head should be always right side s/p craniotomy. bp is on left leg. has picc line on rt upper arm 2 lumen D51/2 ns at 50cc/hr infussing on well. bed on low position low air mattress page catheter in place draining good output. call light within reach. safety measures maintained. hourly rounding is needed.
--- NOTE | 2016-11-23 07:40 | NUR ---
Dr Boateng informed of the low h/h and low platelets. made orders
--- NOTE | 2016-11-23 07:45 | NUR ---
Dr Rodrigues notified of the low h/h and low platelets. made orders to transfer to ICU now.
--- NOTE | 2016-11-23 07:55 | NUR ---
Transferred pt to ICU unit bed 3 family is aware.
[2016-11-23] MEDS ORDERED: OCTREOTIDE ACETATE 50 MCG/ML AMP IV ONE (08:00)
--- NOTE | 2016-11-23 08:10 | NUR ---
Transfer to ICU Received pt from [facility]. Pt awake, nonverbal, unable to make needs known. Pt is on 7L via tracheostomy T-piece. Respirations even and unlabored. VSS, T 99, afebrile. Pt has quadriplegia and contracted hands and tends to lean towards left side despite repositioning. Skin warm and dry. Pt has incisions with scab formation on head from R craniotomy, and abdomen. Wound noted on buttocks, BLE with pitting edema 1+. Wound noted in left ear. PICC line in JOCE intact, patent with D5 1/2 NS 50 ml/hr and protonix drip 8 mg/hr. Arzola in place draining wilner urine. GT in place, no residual noted. Heart sounds regular. Lung sounds clear bilaterally. Bowel sounds present. Elevated all extremities with pillow. SCDs in place. Padded side rails in place. Will continue to monitor. Addendum: 11/23/16 at 1943 by Trinh Ayoub RN Received report from Tayla JONES from [facility]. Per Tayla, pt has received 2 FFP, 1 platelet at night.
[2016-11-23 08:11] LABS: INR 1.1 (0.80-1.20); PROTHROMBIN TIME 12.4 SECS (9.5-12.5)
--- NOTE | 2016-11-23 08:13 | NUR ---
SBAR REPORT GIVEN TO CLAIR JONES FROM ICU.
--- NOTE | 2016-11-23 08:14 | NUR ---
called sister of the patient carmenza jj of the transfer to icu bed 3.
[2016-11-23 08:19] LABS: CALCIUM 8.5 mg/dL (8.4-11.0); CREATININE 0.42 mg/dL (0.55-1.30); POTASSIUM 3.3 mmol/L (3.5-5.1)
--- NOTE | 2016-11-23 08:22 | NUR ---
BT INITIATION: Consent signed agreeing to administration of blood. Blood has been type and crossmatched. Blood sent from blood bank. Information on unit of blood checked against patient wristband at bedside by two nurses. All information matches. Patient or responsible green party informed of potential complications associated with blood transfusion. Informed of possible transfusion reaction symptoms. Aware of need to notify nurse at once of itching, shortness of breath, flushing, feeling of impending doom, or other symptoms not previously present. Vital signs taken within 5 minutes prior to initiation of transfusion. BP 130/74, R 18, T 99.1, P 95. RN will remain with patient for first 15 minutes of transfusion at which time vital signs will be re-assessed.
--- NOTE | 2016-11-23 08:37 | NUR ---
15 minutes of Blood Transfusion VS: T 99.5, P 92, R 24, BP 115/68. Will continue to monitor pt.
[2016-11-23] MEDS: LACOSAMIDE 100 MG TABLET GT SCH ×2 (09:00→21:03)
[2016-11-23] MEDS: amLODIPine BESYLATE 10 MG TABLET GT SCH (09:00)
[2016-11-23] MEDS: THIAMINE HCL 100 MG TABLET GT SCH (09:00)
[2016-11-23] MEDS: levETIRAcetam 500 MG TABLET GT SCH ×2 (09:00→21:02)
[2016-11-23] MEDS: OCTREOTIDE ACETATE 1,250 MCG in NS 250 ML IV SCH (10:08)
[2016-11-23] MEDS ORDERED: *TPN PER PHARMACY XX PRN (10:15)
[2016-11-23] MEDS ORDERED: DEXTROSE 50% JECT 50 ML DISP.SYRIN IVP PRN (10:15)
[2016-11-23] MEDS: CHLORHEXIDINE GLUCONATE 15 ML/DOSE, 480 ML MM SCH ×2 (10:25→21:03)
--- NOTE | 2016-11-23 10:30 | NUR ---
Hygiene Administered CHG bath and wound care. Repositioned pt and also administered oral care and suctioning. Elevated extremities with pillow. Will continue to monitor.
[2016-11-23 10:43] LABS: PHOSPHORUS 3.1 mg/dL (2.7-4.5)
[2016-11-23] MEDS ORDERED: POTASSIUM CHLORIDE 40 MEQ in D5W 250 ML IV ONE (11:00)
--- NOTE | 2016-11-23 11:16 | NUR ---
PAGED DR COATES, , [facility]
--- NOTE | 2016-11-23 11:20 | NUR ---
Patient Update Pt noted with T 100, stopped transfusion and called Dr. Lilia MD aware and received orders. Administered Tylenol and benadryl to pt. Also called blood bank regarding possible reaction, pt is to continue with blood transfusion. Will continue to monitor.
[2016-11-23] MEDS ORDERED: ACETAMINOPHEN 650 MG SUPP.RECT RC PRN (11:30)
[2016-11-23] MEDS ORDERED: DIPHENHYDRAMINE INJ 50 MG/ML VIAL ONE (11:31)
[2016-11-23] MEDS ORDERED: ACETAMINOPHEN 650 MG SUPP.RECT RC ONE (11:32)
[2016-11-23] MEDS: DIPHENHYDRAMINE INJ 50 MG/ML VIAL IVP SCH ×3 (12:00→23:55)
--- NOTE | 2016-11-23 12:00 | NUR ---
1 Unit PRBC Complete No additional adverse reactions noted, T 98.1 and flushed appearance disappearing. Will continue to monitor.
--- NOTE | 2016-11-23 14:10 | NUR ---
2nd Unit PRBC Transfusion Initiated 2nd unit of transfusion. VS BP 130/74, P 95, R 18, T 99.1. Placed pt on cooling measures with ice packs under arms and neck. Will continue to monitor.
--- NOTE | 2016-11-23 14:25 | NUR ---
15 minutes of BT No adverse reactions noted. VS: T 98.2, P 76, R 16, BP 114/61. Pt in no acute distress, no signs of pain noted. Will continue to monitor.
--- NOTE | 2016-11-23 19:30 | NUR ---
Closing/Endorsement Pt awake, nonverbal, more responsive to name and touch. Pt is resistive to oral care. Repositioned pt frequently and attempt to relieve pressure from left ear, though pt keeps leaning towards left side despite repositioning. Total 2 units PRBC given during shift. Endorsed plan of care to Mass RN via SBAR tool and bedside round, and to give 1 unit PRBC, 1 FFP, and 1 platelet per MD order.
--- NOTE | 2016-11-23 20:00 | NUR ---
PM Assessment pt eye open. Non verbal. Breathing symmetrically, non labored. O2 to TBar 7L. No facial grimacing noted. PICC noted on the right upper arm and right hand 22G noted, patent. Safety precaution in place. repositioned pt on the left side with Heels floating. Bilateral lower extremities SCD's for DVT prophylactics. Bed in the lowest positioned, locked. Bed HOB elevated 30 degrees, for aspiration precaution. Educated pt to use call light for assistance. Pt nonverbal. will continue to monitor.
[2016-11-23 20:07] LABS: BASOPHILS % (AUTO) 0.6 % (0.0-2.0); EOSINOPHILS # (AUTO) 0.1 K/uL (0.0-0.4); EOSINOPHILS % (AUTO) 4.5 % (0.0-4.0); HEMATOCRIT 25.4 % (36-54); HEMOGLOBIN 8.3 g/dL (14.0-18.0); LYMPHOCYTES # (AUTO) 0.5 K/uL (1.0-5.5); LYMPHOCYTES % (AUTO) 21.7 % (20.5-51.5); MEAN CORPUSCULAR HEMOGLOBIN 29 pg (27-31); MEAN CORPUSCULAR HGB CONC 33 % (32-36); MEAN CORPUSCULAR VOLUME 90 fL (79.0-98.0); MONOCYTES # (AUTO) 0.4 K/uL (0.0-1.0); MONOCYTES % (AUTO) 16.4 % (1.7-9.3); NEUTROPHILS # (AUTO) 1.2 K/uL (1.8-7.7); NEUTROPHILS % (AUTO) 56.8 % (40.0-70.0); RED BLOOD CELL COUNT(AUTO) 2.83 MIL/uL (4.2-6.2); RED CELL DISTRIBUTION WIDTH 18.8 % (9.0-15.0); WHITE BLOOD COUNT (AUTO) 2.2 K/uL (4.8-10.8)
[2016-11-23] MEDS: K PHOS IV SCH ×10 (20:42)
[2016-11-23] MEDS: POTASSIUM CHLORIDE IV SCH ×10 (20:42)
[2016-11-23] MEDS: [UNRECOGNIZED DRUG - OTHER] IV SCH ×10 (20:42)
[2016-11-23] MEDS: TPN CENTRAL IV SCH ×10 (20:42)
[2016-11-23] MEDS: FAT EMULSIONS 250 ML IV SCH (20:42)
[2016-11-23] MEDS: SODIUM ACETATE IV SCH ×10 (20:42)
[2016-11-23 21:02] LABS: PLATELET COUNT (AUTO) 36 K/uL (130-430)
[2016-11-23] MEDS: TERAZOSIN HCL 1 MG CAPSULE (HYTRIN) GT SCH (21:02)
--- NOTE | 2016-11-23 21:21 | NUR ---
Critical lab Dr. Rodrigues in ICU in the hospital. Notified regarding Platelet and H/H level. New order given.
--- NOTE | 2016-11-23 22:40 | NUR ---
BT INITIATION: Consent signed per family agreeing to administration of blood. Blood has been type and crossmatched. Blood sent from blood bank. Information on unit of blood checked against patient wristband at bedside by two nurses. All information matches. Patient or responsible green party informed of potential complications associated with blood transfusion. Informed of possible transfusion reaction symptoms. Aware of need to notify nurse at once of itching, shortness of breath, flushing, feeling of impending doom, or other symptoms not previously present. Vital signs taken within 5 minutes prior to initiation of transfusion. RN remained with patient for first 15 minutes and vital signs was re-assessed.
[2016-11-23] MEDS: INSULIN REGULAR, HUMAN 100 UNITS/ML, 10 ML VIAL (novoLIN R) SUBCUT PRN (23:06)
[2016-11-24] VITALS (24 sets, daily range): BP systolic 106–130; BP diastolic 64–80; PULSE 69–83; RESP 16–25; TEMP 97.4–98.5; O2SAT 96–100; Ht 157.5 cm; Wt 63.0 kg
--- NOTE | 2016-11-24 | NUR ---
Fresh frozen plasma infusion completed.
--- NOTE | 2016-11-24 00:40 | NUR ---
BT INITIATION: Consent signed per family agreeing to administration of blood. Blood has been type and crossmatched. Blood sent from blood bank. Information on unit of blood checked against patient wristband at bedside by two nurses. All information matches. Patient or responsible libertarian informed of potential complications associated with blood transfusion. Informed of possible transfusion reaction symptoms. Aware of need to notify nurse at once of itching, shortness of breath, flushing, feeling of impending doom, or other symptoms not previously present. Vital signs taken within 5 minutes prior to initiation of transfusion. RN remained with patient for first 15 minutes and vital signs was re-assessed.
--- NOTE | 2016-11-24 02:11 | NUR ---
Fresh frozen plasma infusion completed.
[2016-11-24] MEDS: PANTOPRAZOLE SODIUM 40 MG in NS 50 ML IV SCH ×5 (02:30→21:12)
[2016-11-24] MEDS: DIPHENHYDRAMINE INJ 50 MG/ML VIAL IVP SCH ×4 (05:10→23:45)
[2016-11-24] MEDS: INSULIN REGULAR, HUMAN 100 UNITS/ML, 10 ML VIAL (novoLIN R) SUBCUT PRN ×3 (05:13→23:50)
[2016-11-24] MEDS: LEVOTHYROXINE SODIUM 0.1 MG TABLET GT SCH (06:54)
--- NOTE | 2016-11-24 07:15 | NUR ---
[place] of Care Pt awake, alert, nonverbal on TBAR. Blood transfusion almost ending with no adverse effects noted. No SOB. Observed mouth with shante red blood. GT site with minimal shante red blood. Suctioned via tracheostomy with reddish sputum. No sign of pain. Will continue to monitor.
[2016-11-24] MEDS: levETIRAcetam 500 MG TABLET GT SCH ×2 (08:19→21:12)
[2016-11-24] MEDS: LACOSAMIDE 100 MG TABLET GT SCH ×2 (08:19→21:13)
[2016-11-24] MEDS: CHLORHEXIDINE GLUCONATE 15 ML/DOSE, 480 ML MM SCH ×2 (08:21→21:12)
[2016-11-24] MEDS: amLODIPine BESYLATE 10 MG TABLET GT SCH (08:21)
[2016-11-24] MEDS: THIAMINE HCL 100 MG TABLET GT SCH (08:21)
--- NOTE | 2016-11-24 09:14 | NUR ---
Nutrition Update Tejas Scale 11 noted. Pt admitted for rectal bleed, UTI. Diet: NPO BMI: 25.3 kg/m2 RD to follow per nutrition care standards.
[2016-11-24] MEDS: OCTREOTIDE ACETATE 1,250 MCG in NS 250 ML IV SCH (13:39)
[2016-11-24] MEDS ORDERED: MEPERIDINE HCL/PF 50 MG/ML AMP ONE (13:46)
[2016-11-24] MEDS ORDERED: MIDAZOLAM HCL 5 MG/5 ML VIAL ONE (13:47)
--- NOTE | 2016-11-24 15:00 | NUR ---
EGD Dr. Boateng here for the EGD procedure. Time out was done and assisted MD as needed.
[2016-11-24 15:21] LABS: BASOPHILS % (AUTO) 0.7 % (0.0-2.0); EOSINOPHILS # (AUTO) 0.1 K/uL (0.0-0.4); EOSINOPHILS % (AUTO) 4.3 % (0.0-4.0); HEMATOCRIT 30.2 % (36-54); HEMOGLOBIN 10.1 g/dL (14.0-18.0); LYMPHOCYTES # (AUTO) 0.4 K/uL (1.0-5.5); LYMPHOCYTES % (AUTO) 19.1 % (20.5-51.5); MEAN CORPUSCULAR HEMOGLOBIN 29 pg (27-31); MEAN CORPUSCULAR HGB CONC 33 % (32-36); MEAN CORPUSCULAR VOLUME 88 fL (79.0-98.0); MONOCYTES # (AUTO) 0.2 K/uL (0.0-1.0); MONOCYTES % (AUTO) 10.7 % (1.7-9.3); NEUTROPHILS # (AUTO) 1.3 K/uL (1.8-7.7); NEUTROPHILS % (AUTO) 65.2 % (40.0-70.0); PLATELET COUNT (AUTO) 54 K/uL (130-430); RED BLOOD CELL COUNT(AUTO) 3.43 MIL/uL (4.2-6.2)
[2016-11-24 15:33] LABS: INR 1.2 (0.80-1.20); PROTHROMBIN TIME 12.8 SECS (9.5-12.5)
[2016-11-24 15:35] LABS: ALANINE AMINOTRANSFERASE 33 U/L (12-78); ALBUMIN 2.8 g/dL (3.4-4.8); ASPARTATE AMINOTRANSFERASE 43 U/L (10-37); CALCIUM 8.7 mg/dL (8.4-11.0); CHLORIDE 98 mmol/L (98-107); CREATININE 0.52 mg/dL (0.55-1.30); GLUCOSE 177 mg/dL (70-99); POTASSIUM 3.6 mmol/L (3.5-5.1); SODIUM SERUM 130 mmol/L (136-145); TOTAL BILIRUBIN 1.8 mg/dL (0.0-1.0); TOTAL PROTEIN, SERUM 7.6 g/dL (6.4-8.3); UREA NITROGEN, BLOOD 8 mg/dL (8-21)
[2016-11-24 15:39] LABS: GFR AFRICAN AMERICAN 221 mL/min (>90)
[2016-11-24 15:40] LABS: ANION GAP < 3 (5-15)
--- NOTE | 2016-11-24 16:00 | NUR ---
Dr. Rodrigues made aware of new lab results. saw the results. No new order at this time.
--- NOTE | 2016-11-24 16:00 | NUR ---
GT feeding started Nutren pulmonary started at 20ml/hr as ordered.
--- NOTE | 2016-11-24 16:30 | NUR ---
WOUND EVALUATION: Wound Consult received from Dr. Rodrigues. Thank you, Dr. Rodrigues, for the consult. Patient received in a [place] Bed with an IsoFlex SUJATA mattress with low air-loss therapy initiated, awake, non-verbal, non-responsive to verbal commands. Patient is unable to turn independently. Tejas Score is an 11. Past Medical History: Traumatic Brain Injury, status post Right-Sided Craniotomy, Alcoholic Liver Cirrhosis, Pancytopenia, Chronic Respiratory Failure, Tracheostomy, Encephalopathy, and Quadriplegia. Recent Labs: WBC 2.0, RBC 3.43, Hgb 10.1, Hct 30.2, PLT 54, Na 130, BUN 8, Creat 0.52, Gluc 177, Alb 2.8, Ammonia 68, PT 12.8. Intrinsic factors that delay wound healing: Chronic Respiratory Failure, Encephalopathy. Extrinsic factors that delay wound healing: Immobility. Microbiology: Urine Culture positive for Pseudomonas Aeruginosa. Blood Culture in progress. MRSA Screen negative. Wound Assessment: 1) Left Buttocks: Pressure Ulcer, present on admission. Wound bed is 50% red tissue, 50% yellow tissue. No odor, no drainage. Nandini-wound intact. Measures 3.6 cm x 2.7 cm. Recommend: Cleanse wound with normal saline. Place moisture barrier cream onto nandini-wound. Cover with Sacral foam dressing. Perform wound care daily, and as needed for dressing soiling or dislodgement. 2) Right Buttocks: Scar tissue, with dark discolored skin, present on admission. No odor, no drainage. Recommend: Cleanse site with normal saline. Pat dry. Place moisture barrier cream onto site. Cover with Sacral foam dressing. Perform site care daily, and as needed for dressing soiling or dislodgement. 3) Left Ear Scapha: Pressure Ulcer, present on admission. Wound bed is 5% red tissue, 95% black eschar. No odor, no drainage. Nandini-wound intact. Measures 1.9 cm x 0.7 cm. Recommend: Cleanse wound with normal saline. Place moisture barrier cream onto nandini-wound. Cover with foam dressing. Perform wound care daily, and as needed for dressing soiling or dislodgement. Also recommend: Reposition patient side to side only every 2 hours with pillow support, and off-load pressure areas with pillows for pressure re-distribution. Offload, elevate and float bilateral heels with pillows. Perform skin care and monitor skin integrity Q shift. Use moisture barrier cream on buttocks and other moisture susceptible areas QID and as needed for soiling. Offload and float left ear at all times. Maintain patient on a low air-loss mattress.
--- NOTE | 2016-11-24 17:59 | NUR ---
1741 PT LAVAGED AND SUCTIONED THICK BLOODY SECRETIONS. TRACH TIES CHANGED, TRACH CARE DONE. PT TOLERATING T BAR. Addendum: 11/24/16 at 1802 by Emmy Thakkar RT Amended: Links added.
[2016-11-24] MEDS: FAT EMULSIONS 250 ML IV SCH (18:24)
[2016-11-24] MEDS: SODIUM ACETATE IV SCH ×10 (18:26)
[2016-11-24] MEDS: POTASSIUM CHLORIDE IV SCH ×10 (18:26)
[2016-11-24] MEDS: TPN CENTRAL IV SCH ×10 (18:26)
[2016-11-24] MEDS: [UNRECOGNIZED DRUG - OTHER] IV SCH ×10 (18:26)
[2016-11-24] MEDS: K PHOS IV SCH ×10 (18:26)
[2016-11-24] MEDS ORDERED: SUCRALFATE 1 GM/10 ML UDC GT ONE (18:30)
--- NOTE | 2016-11-24 19:10 | NUR ---
Closing Report given to KAREN Walker and endorsed all care. No SOB. CHG bath was given this shift. In no distress.
--- NOTE | 2016-11-24 19:30 | NUR ---
PM ASSESSMENT PTS EYES OPEN, NONVERBAL, RESPONDS TO VERBAL STIMULUS, AFEBRILE, FAMILY AT BEDSIDE. T-BAR, O2 ON 7L, NO SOB OR DISTRESS. SR ON THE MONITOR. GT PLACEMENT CHECKED, INFUSING NUTREN PULMONARY @20ML/HR, 0 RESIDUALS. CUELLO CATHETER DRAINING TO GRAVITY W/ YELLOW PATRICIA AND SEDIMENTS IN URINE. DRESSINGS INTACT AND DRY ON LT EAR AND SACRUM. IV ON SERGIO PICC AND RT HAND, INTACT AND PATENT. ORIENTED TO CALL LIGHT AND W/IN REACH, SAFETY AND REVERSE ISOLATION PRECAUTIONS IN PLACE, WILL CONTINUE TO MONITOR.
[2016-11-24] MEDS: TERAZOSIN HCL 1 MG CAPSULE (HYTRIN) GT SCH (21:13)
[2016-11-24] MEDS: CLOTRIMAZOLE/BETAMET DIPROP 15 GM TUBE TP SCH (21:13)
[2016-11-24] MEDS: D5/0.45 NS 1,000 ML IV SCH (21:14)
[2016-11-24] MEDS: SUCRALFATE 1 GM/10 ML UDC GT SCH (23:45)
[2016-11-25] VITALS (25 sets, daily range): BP systolic 110–140; BP diastolic 61–77; PULSE 70–85; RESP 19–28; TEMP 97.4–98.2; O2SAT 95–100
--- NOTE | 2016-11-25 | NUR ---
ROUNDS PT AFEBRILE, DRESSINGS INTACT. NO SOB OR DISTRESS. SAFETY AND REVERSE ISOLATION PRECAUTIONS IN PLACE, WILL CONTINUE TO MONITOR.
[2016-11-25] MEDS: PANTOPRAZOLE SODIUM 40 MG in NS 50 ML IV SCH ×3 (01:43→10:54)
[2016-11-25] MEDS: SUCRALFATE 1 GM/10 ML UDC GT SCH ×3 (06:19→17:42)
[2016-11-25] MEDS: LEVOTHYROXINE SODIUM 0.1 MG TABLET GT SCH (06:19)
[2016-11-25] MEDS: DIPHENHYDRAMINE INJ 50 MG/ML VIAL IVP SCH ×3 (06:19→17:42)
[2016-11-25] MEDS: INSULIN REGULAR, HUMAN 100 UNITS/ML, 10 ML VIAL (novoLIN R) SUBCUT PRN ×2 (06:21→11:21)
[2016-11-25 06:39] LABS: ALBUMIN 2.7 g/dL (3.4-4.8); CALCIUM 8.4 mg/dL (8.4-11.0); CREATININE 0.49 mg/dL (0.55-1.30); PHOSPHORUS 3.8 mg/dL (2.7-4.5); POTASSIUM 3.9 mmol/L (3.5-5.1); TOTAL BILIRUBIN 1.9 mg/dL (0.0-1.0); TOTAL PROTEIN, SERUM 7.5 g/dL (6.4-8.3)
[2016-11-25 07:08] LABS: BASOPHILS % (AUTO) 0.5 % (0.0-2.0); EOSINOPHILS # (AUTO) 0.1 K/uL (0.0-0.4); EOSINOPHILS % (AUTO) 3.1 % (0.0-4.0); HEMATOCRIT 31.8 % (36-54); HEMOGLOBIN 10.3 g/dL (14.0-18.0); LYMPHOCYTES # (AUTO) 0.3 K/uL (1.0-5.5); LYMPHOCYTES % (AUTO) 11.4 % (20.5-51.5); MEAN CORPUSCULAR HEMOGLOBIN 29 pg (27-31); MEAN CORPUSCULAR HGB CONC 32 % (32-36); MONOCYTES # (AUTO) 0.3 K/uL (0.0-1.0); MONOCYTES % (AUTO) 9.5 % (1.7-9.3); NEUTROPHILS # (AUTO) 2.3 K/uL (1.8-7.7); PLATELET COUNT (AUTO) 50 K/uL (130-430); RED BLOOD CELL COUNT(AUTO) 3.55 MIL/uL (4.2-6.2); RED CELL DISTRIBUTION WIDTH 17.5 % (9.0-15.0)
--- NOTE | 2016-11-25 07:15 | NUR ---
INITIAL NOTES RECEIVED PATIENT ON BED ASLEEP BUT EASILY AROUSED WITH LIGHT STIMULI.BREATHING EVEN AND UNLABORED WITH T-BAR INTACT ATTACHED TO O2 AT 7L/M.NO ACUTE DISTRESS.GTF RUNNING AT 20 ML/HR;TOLERATING WELL.IVF INFUSING WELL AT 30 ML/HR;TPN AT 42 ML/HR;LIPIDS AT 10 ML/HR;SANDOSTATIN AT 10 ML/HR;NO SIGNS AND SYMPTOMS OF INFILTRATION.WITH CUELLO CATHETER INTACT AND PATENT DRAINING PATRICIA URINE.SAFETY AND FALL PRECAUTIONS IN PLACE.CALL LIGHT WITHIN REACH
--- NOTE | 2016-11-25 07:30 | NUR ---
CLOSING REPORT ALL NEEDS MET. ENDORSED CARE AT BEDSIDE TO DAY NURSE KAREN RODRIGUEZ.
[2016-11-25 08:12] LABS: MEAN CORPUSCULAR VOLUME 90 fL (79.0-98.0)
--- NOTE | 2016-11-25 08:17 | NUR ---
Dr. Rodrigues Spoke with Dr. Rodrigues on the phone to report pt's Hgb/ Hematocrit and platelet levels. No new order at this time.
[2016-11-25] MEDS: LACOSAMIDE 100 MG TABLET GT SCH ×2 (09:13→21:35)
[2016-11-25] MEDS: CHLORHEXIDINE GLUCONATE 15 ML/DOSE, 480 ML MM SCH ×2 (09:13→21:37)
[2016-11-25] MEDS: CLOTRIMAZOLE/BETAMET DIPROP 15 GM TUBE TP SCH ×2 (09:13→21:38)
[2016-11-25] MEDS: levETIRAcetam 500 MG TABLET GT SCH ×2 (09:14→21:35)
[2016-11-25] MEDS: THIAMINE HCL 100 MG TABLET GT SCH (09:14)
[2016-11-25] MEDS: amLODIPine BESYLATE 10 MG TABLET GT SCH (09:15)
[2016-11-25 10:30] LABS: NEUTROPHILS % (AUTO) 75.5 % (40.0-70.0)
--- NOTE | 2016-11-25 11:02 | NUR ---
Nutrition Note Nutrition Consult (Wounds) received 11/24/16 6595. Pt was seen and assessed by RD on 11/25/16. Please refer to Nutrition Assessment for details. RD to continue to follow per nutrition care standards.
--- NOTE | 2016-11-25 11:30 | NUR ---
RT NOTES Titrated o2 to 6L. No adverse reactions noted. Will monitor pt.
[2016-11-25] MEDS: OCTREOTIDE ACETATE 1,250 MCG in NS 250 ML IV SCH (11:59)
--- NOTE | 2016-11-25 12:10 | NUR ---
Dr. Boateng paged to make aware that pt has large amount of dark red stool. Awaiting MD call back.
--- NOTE | 2016-11-25 13:32 | NUR ---
Dr. Boateng Spoke with Dr. Boateng and made aware that pt had large amount of dark red stool. Made aware of H &H and platelets levels as well. New order to draw H&H at 1400. Addendum: 11/25/16 at 1937 by Sybil Dominguez RN Also informed MD that the GT site is with minimal leakage and slight reddish drainage.
[2016-11-25 14:26] LABS: HEMATOCRIT 30.8 % (36-54); HEMOGLOBIN 10.4 g/dL (14.0-18.0)
--- NOTE | 2016-11-25 14:50 | NUR ---
NOTES H/H RESULT IN;DR. ANTUNEZ PAGED;WAITING FOR CALL BACK
--- NOTE | 2016-11-25 15:27 | NUR ---
NOTES DR. ANTUNEZ CALLED BACK;INFORMED REGARDING H/H RESULT;NO NEW ORDER
--- NOTE | 2016-11-25 15:45 | NUR ---
RT NOTES Pt. cont. to tolerate 6L O2, SPO2 97-98%. Titrated O2 to 5L, no adverse reactions noted. RN made aware. Will monitor pt.
[2016-11-25] MEDS: D5/0.45 NS 1,000 ML IV SCH (17:36)
[2016-11-25] MEDS: SODIUM ACETATE IV SCH ×10 (17:50)
[2016-11-25] MEDS: POTASSIUM CHLORIDE IV SCH ×10 (17:50)
[2016-11-25] MEDS: K PHOS IV SCH ×10 (17:50)
[2016-11-25] MEDS: TPN CENTRAL IV SCH ×10 (17:50)
[2016-11-25] MEDS: [UNRECOGNIZED DRUG - OTHER] IV SCH ×10 (17:50)
[2016-11-25] MEDS: FAT EMULSIONS 250 ML IV SCH (17:50)
--- NOTE | 2016-11-25 19:15 | NUR ---
REPORT GIVEN TO KAREN HILLIARD AND ENDORSED ALL CARE. PT IN NO DISTRESS.
--- NOTE | 2016-11-25 19:25 | NUR ---
PM SHIFT ASSESSMENT Pt is lying in bed with eyes open, non verbal and unable to make needs known. No s/s of acute distressed noted. Pt is on reverse isolation. O2 @ 5L via T-bar, RR are even and unlabored. SR noted on monitor. Gtube @ 20ml, correct placement verified & tolerating feeding well. PICC line to SERGIO, and IV to right hand, dressing clean, dry and intact. IVF infusing. Arzola catheter draining to gravity with wilner/sediment urine. Wounds to sacrum and left ear, dressings in place clean, dry and intact. Safety measures in place. Will continue to monitor.
[2016-11-25 20:23] LABS: BASOPHILS % (AUTO) 0.9 % (0.0-2.0); EOSINOPHILS # (AUTO) 0.1 K/uL (0.0-0.4); EOSINOPHILS % (AUTO) 2.4 % (0.0-4.0); HEMATOCRIT 30.6 % (36-54); HEMOGLOBIN 10.2 g/dL (14.0-18.0); LYMPHOCYTES # (AUTO) 0.3 K/uL (1.0-5.5); LYMPHOCYTES % (AUTO) 9.9 % (20.5-51.5); MEAN CORPUSCULAR HEMOGLOBIN 30 pg (27-31); MEAN CORPUSCULAR HGB CONC 33 % (32-36); MEAN CORPUSCULAR VOLUME 90 fL (79.0-98.0); MONOCYTES # (AUTO) 0.4 K/uL (0.0-1.0); MONOCYTES % (AUTO) 12.1 % (1.7-9.3); NEUTROPHILS # (AUTO) 2.5 K/uL (1.8-7.7); NEUTROPHILS % (AUTO) 74.7 % (40.0-70.0); RED BLOOD CELL COUNT(AUTO) 3.42 MIL/uL (4.2-6.2); RED CELL DISTRIBUTION WIDTH 17.4 % (9.0-15.0); WHITE BLOOD COUNT (AUTO) 3.3 K/uL (4.8-10.8)
--- NOTE | 2016-11-25 20:25 | NUR ---
Critical Lab Value Received call from lab reporting platelet count of 39,000. KAREN Walker notified.
[2016-11-25 20:27] LABS: PLATELET COUNT (AUTO) 39 K/uL (130-430)
--- NOTE | 2016-11-25 21:25 | NUR ---
Spoke to Dr. Rodrigues in regards to critical lab value for Plt count of 39. Dr. Rodrigues changed IVF to 40ml/hr and tube feeding to 30ml/hr. Orders carried out. Will continue to monitor.
[2016-11-25] MEDS: TERAZOSIN HCL 1 MG CAPSULE (HYTRIN) GT SCH (21:37)
[2016-11-26] VITALS (16 sets, daily range): BP systolic 95–119; BP diastolic 52–72; PULSE 69–88; RESP 22–30; TEMP 97.2–98.4; O2SAT 94–99
[2016-11-26] MEDS: SUCRALFATE 1 GM/10 ML UDC GT SCH ×4 (00:03→19:36)
[2016-11-26] MEDS: DIPHENHYDRAMINE INJ 50 MG/ML VIAL IVP SCH ×4 (00:03→19:36)
[2016-11-26] MEDS: INSULIN REGULAR, HUMAN 100 UNITS/ML, 10 ML VIAL (novoLIN R) SUBCUT PRN ×3 (00:12→11:36)
--- NOTE | 2016-11-26 03:20 | NUR ---
ROUNDS Pt had a BM. BM was black and tarry. Pt tolerated hygiene care well. Safety measures in place. Will continue to monitor.
[2016-11-26] MEDS: D5/0.45 NS 1,000 ML IV SCH ×2 (05:43→09:54)
[2016-11-26] MEDS: LEVOTHYROXINE SODIUM 0.1 MG TABLET GT SCH (06:08)
[2016-11-26 06:29] LABS: CALCIUM 8.5 mg/dL (8.4-11.0); CREATININE 0.31 mg/dL (0.55-1.30)
[2016-11-26 06:46] LABS: HEMATOCRIT 31.8 % (36-54); HEMOGLOBIN 10.1 g/dL (14.0-18.0); MEAN CORPUSCULAR HEMOGLOBIN 29 pg (27-31); MEAN CORPUSCULAR HGB CONC 32 % (32-36); MEAN CORPUSCULAR VOLUME 90 fL (79.0-98.0); RED BLOOD CELL COUNT(AUTO) 3.52 MIL/uL (4.2-6.2); RED CELL DISTRIBUTION WIDTH 18.1 % (9.0-15.0); WHITE BLOOD COUNT (AUTO) 2.8 K/uL (4.8-10.8)
[2016-11-26 06:55] LABS: PLATELET COUNT (AUTO) 44 K/uL (130-430)
--- NOTE | 2016-11-26 06:57 | NUR ---
Critical Lab Value Received call from lab reporting platelet count of 44,000.
--- NOTE | 2016-11-26 07:28 | NUR ---
ENDORSEMENT Pt care endorsed to KAREN Beltran at bedside using nursing SBAR.
--- NOTE | 2016-11-26 07:30 | NUR ---
BEGINNING OF SHIFT ASSESSMENT: Received patient eyes closed, resting in bed, alert, non-verbal.Breathing even and unlabored on t-bar 5L, o2sat 97%.No signs of bleed, pain, distress noted.Patient receiving IV fluids to PICC to right upper arm,ports patent,flushable with blood return,dressing,dry,clean and intact.No signs of redness,infection noted.Pt continues to be closely monitored.
[2016-11-26 07:47] LABS: BAND % (MANUAL) 1 % (0-6); BASOPHILS % (MANUAL) 0 % (0-2); EOSINOPHILS % (MANUAL) 0 % (0-7); LYMPHOCYTES % (MANUAL) 8 % (20-46); MONOCYTES % (MANUAL) 9 % (0-11)
[2016-11-26] MEDS: levETIRAcetam 500 MG TABLET GT SCH ×2 (08:12→21:39)
[2016-11-26] MEDS: amLODIPine BESYLATE 10 MG TABLET GT SCH (08:13)
[2016-11-26] MEDS: THIAMINE HCL 100 MG TABLET GT SCH (08:13)
[2016-11-26] MEDS: LACOSAMIDE 100 MG TABLET GT SCH ×2 (08:13→21:38)
[2016-11-26] MEDS: PANTOPRAZOLE SODIUM 40 MG/VIAL (PROTONIX) IVP SCH ×2 (08:14→21:36)
[2016-11-26] MEDS: CLOTRIMAZOLE/BETAMET DIPROP 15 GM TUBE TP SCH ×2 (08:14→21:37)
[2016-11-26] MEDS: CHLORHEXIDINE GLUCONATE 15 ML/DOSE, 480 ML MM SCH ×2 (08:14→21:36)
[2016-11-26] MEDS: PROPRANOLOL HCL 10 MG TABLET (INDERAL) PO SCH ×2 (09:53→21:39)
--- NOTE | 2016-11-26 10:00 | NUR ---
PT CARE: BM x 1, cleaned,turned and repositioned.Oral care provided.Pt continues to be monitored closely.
--- NOTE | 2016-11-26 12:00 | NUR ---
PT UPDATE: Patient remains lethargic,non-verbal,provided suctioning,turned and repositioned.
--- NOTE | 2016-11-26 13:00 | NUR ---
MD ROUNDING: Dr. Artemio CALLES at bedside examining patient.New orders received.
--- NOTE | 2016-11-26 13:00 | NUR ---
DRESSING CHANGED: Dressings to sacral wound and left ear changed, wound bed cleaned with normal saline,pat to dry, applied hydrogel to wound bed and zguard around wound bed,foam dressing applied to site.Pt tolerated procedure.
--- NOTE | 2016-11-26 14:00 | NUR ---
TRANSFER CARE: Bedside report given to KAREN Vazquez.Endorsed all care to RN.
--- NOTE | 2016-11-26 14:30 | NUR ---
PT TRANSFER: Patient transferred to tele bed 116 A via gurney.Bed locked, in lowest position,call light within easy reach,upper side rails x 2 up.
--- NOTE | 2016-11-26 15:13 | NUR ---
OPENING NOTES RECEIVED PT FROM ICU, PT AWAKE, NON VERBAL, R CRANIOTOMY NOTED, WITH R SIDE OF LOWER HEAD SWOLLEN. TRACHED TO TBAR, IV FLUIDS RUNNING WELL VIA PICC ON SERGIO, CUELLO ON FOOT OF BED, AMBERYELLOW COLORE, CLOUDY URINE. CALLLIGHT IN REACH. BED IN LOW POSITION.
--- NOTE | 2016-11-26 16:00 | NUR ---
NOTES, PT IN BED, NO S/SX PAIN, NO SOB, NO DISTRESS. FAMILY AT BEDSIDE. IVFRLUIDS RUNNING WELL VIA PICC. CUELLO AT FOOT OF BED, CALLIGHT IN REACH. BED IN LOW POSITION.
--- NOTE | 2016-11-26 16:05 | NUR ---
RT NOTES Sterile trach care well tolerated. T.T secure/patent. Bilat. b.s./chest rise noted. Family at bedside.
--- NOTE | 2016-11-26 17:24 | NUR ---
WOUND Re-EVALUATION: Patient received in a [place] Bed with an IsoFlex SUJATA mattress with low air-loss therapy initiated, awake, non-verbal, non-responsive to verbal commands. Patient is unable to turn independently. Tejas Score is an 11. Intrinsic factors that delay wound healing: Chronic Respiratory Failure, Encephalopathy. Extrinsic factors that delay wound healing: Immobility. Microbiology: Blood Culture in progress. Wound Assessment: Wound care performed by day shift nurse. Assessment provided by KAREN Beltran. 1) Left Buttocks: Pressure Ulcer, present on admission. Wound bed has pink tissue. No odor, scant sanguineous drainage. Nandini-wound intact. Recommend continue: Cleanse wound with normal saline. Place moisture barrier cream onto nandini-wound. Cover with Sacral foam dressing. Perform wound care daily, and as needed for dressing soiling or dislodgement. 2) Right Buttocks: Scar tissue, with dark discolored skin, present on admission. No odor, no drainage. Recommend: Cleanse site with normal saline. Pat dry. Place moisture barrier cream onto site. Cover with Sacral foam dressing. Perform site care daily, and as needed for dressing soiling or dislodgement. 3) Left Ear Scapha: Pressure Ulcer, present on admission. Wound bed is 5% red tissue, 95% black eschar. No odor, no drainage. Nandini-wound intact. Recommend continue: Cleanse wound with normal saline. Place moisture barrier cream onto nandini-wound. Cover with foam dressing. Perform wound care daily, and as needed for dressing soiling or dislodgement. Also recommend continue: Reposition patient side to side only every 2 hours with pillow support, and off-load pressure areas with pillows for pressure re-distribution. Offload, elevate and float bilateral heels with pillows. Perform skin care and monitor skin integrity Q shift. Use moisture barrier cream on buttocks and other moisture susceptible areas QID and as needed for soiling. Offload and float left ear at all times. Maintain patient on a low air-loss mattress.
--- NOTE | 2016-11-26 18:22 | NUR ---
CLOSING NOTES PT IN BED, NO S/SX PAIN, NO DISTRESS, O2 SAT VIA HUMIDIFIED AIR 5LI IS 95%, HR 73. FAMILY AT BEDSIDE. G-TUBE FEEDIN RUNNING WELL WITH NO RESIDUAL. IV FLUID RUNNING WELL VIA SERGIO PICC. NO SWELLING. FAMILY AT BEDSIDE, BED IN LOW POSITION. CALL LIGHT IN REACH. WILL ENDORSE TO NIGHT RN. CUELLO AT FOOT OF BED.
--- NOTE | 2016-11-26 19:40 | NUR ---
INITIAL NOTE PT. RECEIVED WITH EYES OPEN. NONVERBAL. NO S/S OF SOB OR DISTRESS. NO FACIAL GRIMACING INDICATING ANY PAIN. FAMILY IS AT THE BEDSIDE. PT SATING WELL ON 5L VIA TBAR. DRESSING ON LEFT EAR IS DRY AND INTACT. DOUBLE LUMEN PICC NOTED TO SERGIO, BOTH PORTS FLUSH WELL WITH GOOD BLOOD RETURN. IV FLUIDS INFUSING WELL ORDERED. G TUBE NOTED, WITH FEEDING INFUSING WELL ORDERED. DRESSING IS DRY. INCISION FROM PRIOR SURGERY NOTED ON ABDOMEN. HEELS ARE ELEVATED ON PILLOW AND PT. IS ON LOW AIRLOSS MATTRESS. SEIZURE PADS ARE IN PLACE FOR PRECAUTION. CUELLO CATHETER DRAINING TO GRAVITY, PATRICIA OUTPUT NOTED. PLAN OF CARE DISCUSSED WITH FAMILY AT THE BEDSIDE, VERBALIZE UNDERSTANDING. WILL CONTINUE TO MONITOR FREQUENTLY. REVERSE PRECAUTIONS IN PLACE AT ALL TIMES. SAFETY, FALL AND SEIZURE PRECAUTIONS IN PLACE. CALL LIGHT IN REACH, BED ALARM ON.
[2016-11-26] MEDS: TERAZOSIN HCL 1 MG CAPSULE (HYTRIN) GT SCH (21:38)
--- NOTE | 2016-11-26 22:05 | NUR ---
ROUNDS PT. HAD ONE BM, CLEANED AND PROVIDED WITH NEW LINEN. PT. REPOSITIONED FOR COMFORT AND SUPPORTED WELL WITH PILLOWS. FLUIDS INFUSING WELL ORDERED. PT. SUCTIONED, HE HAD EXCESS SECRETIONS. PT. LEFT COMFORTABLE IN UPRIGHT POSITION WITH G TUBE FEEDING INFUSING WELL. WILL CONTINUE TO MONITOR FOR CHANGES. SAFETY, FALL, SEIZURE, AND REVERSE ISOLATION PRECAUTIONS IN PLACE. BED ALARM ON.
[2016-11-26] MEDS: IPRATROPIUM/ALBUTEROL SULFATE 3 ML AMPUL.NEB INH SCH (23:53)
[2016-11-27] VITALS (8 sets, daily range): BP systolic 92–140; BP diastolic 54–73; PULSE 63–79; RESP 16–20; TEMP 97.4–99; O2SAT 92–100
--- NOTE | 2016-11-27 00:07 | NUR ---
ROUNDS PT. RESTING IN BED WITH EYES CLOSED. CHEST RISE AND FALL NOTED. NO FACIAL GRIMACING INDICATING PAIN. IV FLUIDS AND G TUBE FEEDING INFUSING WELL. WILL CONTINUE TO MONITOR. SAFETY, FALL AND SEIZURE PRECAUTIONS IN PLACE. CALL LIGHT IN REACH.
[2016-11-27] MEDS: DIPHENHYDRAMINE INJ 50 MG/ML VIAL IVP SCH ×4 (00:26→17:45)
[2016-11-27] MEDS: SUCRALFATE 1 GM/10 ML UDC GT SCH ×4 (00:26→17:45)
--- NOTE | 2016-11-27 02:15 | NUR ---
ROUNDS PATIENT PROVIDED WITH BED BATH. REPOSITIONED FOR COMFORT. SUPPORTED WELL WITH PILLOWS. PER FAMILY THEY DO NOT WISH FOR HIM TO BE TURNED ON HIS RIGHT SIDE BECAUSE IT CAUSES HIS HEAD TO SWELL. ONLY TURNING PATIENT TO HIS LEFT SIDE AND SUPINE. DRESSING ON SACRAL AREA REMAINS DRY AND INTACT. WILL CONTINUE TO MONITOR. SAFETY,FALL, AND SEIZURE PRECAUTIONS IN PLACE. CALL LIGHT IN REACH.
[2016-11-27] MEDS: IPRATROPIUM/ALBUTEROL SULFATE 3 ML AMPUL.NEB INH SCH ×4 (03:23→15:20)
--- NOTE | 2016-11-27 04:05 | NUR ---
ROUNDS PT. RESTING IN BED WITH EYES OPEN, NO S/S OF SOB OR DISTRESS. NO FACIAL GRIMACING FOR PAIN. IV FLUIDS AND G TUBE FEEDING INFUSING WELL. PT. REPOSITIONED FOR COMFORT AND SUPPORTED WELL WITH PILLOWS. HEELS ARE ELEVATED. WILL CONTINUE TO MONITOR FOR CHANGES. SAFETY AND FALL PRECAUTIONS IN PLACE, CALL LIGHT IN REACH, BED ALARM ON.
[2016-11-27] MEDS: LEVOTHYROXINE SODIUM 0.1 MG TABLET GT SCH (06:06)
--- NOTE | 2016-11-27 06:36 | NUR ---
CLOSING NOTE PT. RESTING WITH EYES OPEN. NO S/S OF SOB OR DISTRESS. NO FACIAL GRIMACING INDICATING ANY PAIN. IV FLUIDS AND G TUBE FEEDING INFUSING WELL. G TUBE FLUSHED WITH 50 CC FREE WATER, NO RESISTANCE NOTED. PT. REPOSITIONED FOR COMFORT AND SUPPORTED WELL WITH PILLOWS. HEELS ELEVATED. ACCU CHECK DONE, BS WNL. ALL NECESSARY NEEDS WERE MET. SAFETY AND FALL PRECAUTIONS WERE MAINTAINED. WILL ENDORSE CARE TO AM NURSE. CALL LIGHT IN REACH, BED ALARM ON.
[2016-11-27 07:07] LABS: HEMATOCRIT 29.5 % (36-54); HEMOGLOBIN 9.8 g/dL (14.0-18.0); MEAN CORPUSCULAR HGB CONC 33 % (32-36); WHITE BLOOD COUNT (AUTO) 2.5 K/uL (4.8-10.8)
[2016-11-27 07:16] LABS: MEAN CORPUSCULAR HEMOGLOBIN 30 pg (27-31); MEAN CORPUSCULAR VOLUME 89 fL (79.0-98.0); RED CELL DISTRIBUTION WIDTH 17.8 % (9.0-15.0)
[2016-11-27 07:18] LABS: ALBUMIN 2.6 g/dL (3.4-4.8); CALCIUM 8.4 mg/dL (8.4-11.0); CREATININE 0.42 mg/dL (0.55-1.30); POTASSIUM 4.1 mmol/L (3.5-5.1); TOTAL PROTEIN, SERUM 7.2 g/dL (6.4-8.3)
[2016-11-27 07:23] LABS: PLATELET COUNT (AUTO) 28 K/uL (130-430)
[2016-11-27 07:52] LABS: BAND % (MANUAL) 4 % (0-6); BASOPHILS % (MANUAL) 0 % (0-2); EOSINOPHILS % (MANUAL) 0 % (0-7); LYMPHOCYTES % (MANUAL) 19 % (20-46); MONOCYTES % (MANUAL) 13 % (0-11)
--- NOTE | 2016-11-27 08:00 | NUR ---
RN Rounds Patient was assessed examined, repositioned in bed, no signs of pain or discomfort will f/U with the medication administration
[2016-11-27] MEDS: PANTOPRAZOLE SODIUM 40 MG/VIAL (PROTONIX) IVP SCH ×2 (08:58→21:15)
[2016-11-27] MEDS: THIAMINE HCL 100 MG TABLET GT SCH (08:58)
[2016-11-27] MEDS: levETIRAcetam 500 MG TABLET GT SCH ×2 (08:59→21:17)
[2016-11-27] MEDS: LACOSAMIDE 100 MG TABLET GT SCH ×2 (08:59→21:16)
[2016-11-27] MEDS: amLODIPine BESYLATE 10 MG TABLET GT SCH ×2 (09:00→09:02)
[2016-11-27] MEDS: PROPRANOLOL HCL 10 MG TABLET (INDERAL) PO SCH ×2 (09:01→21:16)
--- NOTE | 2016-11-27 10:00 | NUR ---
RN Rounds patient was repositioned> no signs of pain or discomfort. family members came by the bedside. tube feeding is running as prescribed. no residue when checked before flushing.
[2016-11-27] MEDS: CLOTRIMAZOLE/BETAMET DIPROP 15 GM TUBE TP SCH ×2 (10:31→21:15)
[2016-11-27] MEDS: CHLORHEXIDINE GLUCONATE 15 ML/DOSE, 480 ML MM SCH ×2 (10:32→21:15)
--- NOTE | 2016-11-27 11:55 | NUR ---
Consult was called Rg: [employer] spoke with Rebekah from Dr Connell office .
--- NOTE | 2016-11-27 12:00 | NUR ---
RN Rounds family members were educated about infection prevention and how to recognize the S/S of infection, they verbalize understanding< patient shows no grimacing , open eyes but non verbal
[2016-11-27] MEDS ORDERED: COMMUNICATION ORDER XX ONE (12:30)
[2016-11-27] MEDS ORDERED: PIPERACILLIN/TAZOBACTAM 3.375 GM/ D5W 50 ML IV ONE ×2 (12:45)
[2016-11-27] MEDS: D5/0.45 NS 1,000 ML IV SCH (13:04)
--- NOTE | 2016-11-27 13:17 | NUR ---
DISCHARGE PLANNING Faxed referral to [phone] per family request. Will follow up on bed acceptance and bed availability. Addendum: 11/27/16 at 1605 by Page Ramos DP Spoke with Sylvain in admitting at [facility] patient accepted. Sylvain stated facility will have [facility] bed available for patient 11/28. SERGIO made aware and will update patient family. Pending discharge order for bed assignment at [facility].
--- NOTE | 2016-11-27 14:00 | NUR ---
RN Rounds. Patient was repositioned, discharge planning is going on to transfer the patient. patients' shows no signs of pain of discomfort
--- NOTE | 2016-11-27 15:34 | NUR ---
Nutrition F/U Admitting Diagnosis Rectal bleed, UTI Reviewed Pertinent Medical/Surgical Hx Primary RN Medical Record Medical History Comment: Alcoholic liver Dz, alcoholism, TBI, chronic respiratory failure, tracheostomy, dysphagia, GT feeding per MD notes Pt is from [facility] Subjective Information Pt seen resting in bed at time of RD visit, multiple family members in room, w/ TF infusing as per MD orders. RN at bedside providing care. RN reported that pt has been tolerating TF well, no residuals; 540 ml seen infused, providing 810 kcal. Per MD progress note 11/27/16: no bloody stool; plan to continue GT feeding, protonix, respiratory care, subacute placement. Pt had EGD on 11/24/16 which revealed bucyn-gz-vfciydxj size nonbleeding esophageal varices, left alone, [id number]-[id number] portal gastropathy, GT insertion site with ulceration and oozing, likely cause of bleeding, s/p electrocautery with hemostasis, and normal duodenal up to second portion per operative notes. Per EMR, TF Intakes: 360 ml 11/27/16.ws w/ current EN support and IV dextrose infusion. Note that pt was tapered off TPN support yesterday, 11/26/16. Pt is not appropriate for nutrition education. Current Diet Order/Nutrition Support Nutren Pulmonary at 40 ml/hr (goal rate), Free Water Flush: 50 ml q6h via GT Patient/Significant Other Unable To Verbalize Education Provided Not Indicated Pertinent Medications D5%/NaCl IV at 40 ml/hr (163 kcal/day) Pertinent Labs WBC 2.5 L, Hgb 9.8 L, Hct 29.5 L, Na 130 L, BUn 7 L, CRE 0.42 L, BG 110 H, POC BG 126 H Height (Feet) 5 feet Height (Inches) 2.00 inches Weight (Pounds) 139 pounds (admission) BEDSCALE WT: 154.8 lb, 70 kg (11/27/16) -- unsure of accuracy Weight (Calculated Kilograms) 63.794275 kilograms Patient Weight 63.049 kg Body Mass Index 25.42 kg/m2 %IBW [address] [place]/Adjusted Body Weight IBW: 118 lb, 54 kg Recent Weight Change Unknown Weight Status Overweight Gastrointestinal Symptoms Bleeding Last BM Nov 23, 2016 Food Allergies Unknown Usual Diet At Home Jevity 1.5 at 50 cc/hr x20 hrs via pump; Free H2O w/ 40 cc x20 hrs Skin Integrity Comment: Tejas scale: 11; per Aviation Electrical Technician note 11/26/16: 1) Left Buttocks: Pressure Ulcer, present on admission. 2) Right Buttocks: Scar tissue, with dark discolored skin, present on admission. 3) Left Ear Scapha: Pressure Ulcer, present on admission. Estimated Energy Expenditure (kcals/day) 5723-9064 kcal/day (BEE x 1-1.2 CBW for maintenance) Estimated Protein Required (g/day) 63-76 gm/day (1-1.2 gm/kg CBW for maintenance) Estimated Fluid Required (l/day) 1.4-1.7 L/day (1 ml/kcal/day for maintenance) Problem/Etiology/Signs/Symptoms Complicated GI function related to GI bleed as evidenced by low Hgb/Hct values, and need for EGD workup. *improving Expected Outcomes/Goals - Monitor tolerance to TPN support and provision of EN w/ goal of pt meeting at least 75% of estimated nutritional needs, labs trending WNL, normal GI function, and skin integrity/wt maintenance Dietitian Recommendations * Recommend continuing Nutren Pulmonary at 40 ml/hr (goal rate), Free Water Flush: 50 ml q6h via GT Together w/ current IV dextrose infusion: Provides: 1603 kcal/day, 65 gm protein/day, 951 ml free water/day Meets: 94% of upper end of estimated caloric needs and 103% of lower end of estimated protein needs * Consider neutropenic precautions Follow Up High Risk: F/U in 2-3 days
--- NOTE | 2016-11-27 16:01 | NUR ---
Discharge Planning Call received from [facility] in [place] and they have accepted patient. Contacted patient's daughter, Monique [phone], to inform her that a bed is available. Anticipate patient will transfer tomorrow. Daughter is agreeable to transfer.
[2016-11-27] MEDS: PIPERACILLIN/TAZOBACTAM 3.375 GM/ D5W 50 ML IV SCH ×2 (17:44)
--- NOTE | 2016-11-27 18:00 | NUR ---
RN Rounds patient lies on bed repositioned, given his prescribed meds, shows no signs pain or discomfort. family by bedside.
--- NOTE | 2016-11-27 20:00 | NUR ---
Opening Note Report received form the day shift nurse. Currently on reverse isolation due to low WBC count. Patient is awake, however, is non verbal. 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 He is trach dependent is on O2 5l via a t-bar. G-tube is in place running Nutren Pulmonary @30ml/hr. Arzola catheter is in place draining clear yellow urine. IV is on the RFA 20g running D51/2NS@40ml/hr. RUE PICC is saline locked.
[2016-11-27] MEDS: TERAZOSIN HCL 1 MG CAPSULE (HYTRIN) GT SCH (21:17)
--- NOTE | 2016-11-27 22:00 | NUR ---
Rounds Patient is resting in bed. No signs of distress noted.
--- NOTE | 2016-11-27 23:27 | NUR ---
MD MAYORGA PAGEJAXON Perera DR, ZOUHAIR AT [phone] SPOKE WITH GIBSON.
--- NOTE | 2016-11-27 23:29 | NUR ---
Spoke with MD Spoke with Dr. Rodrigues regarding current rhythm change from sinus to a-flutter. No orders received.
--- NOTE | 2016-11-28 | NUR ---
Rounds Patient is in stable condition. No signs of distress noted.
[2016-11-28 00:59] VITALS: BP 126/67; PULSE 69; RESP 18; TEMP 98; O2SAT 100
[2016-11-28] MEDS: PIPERACILLIN/TAZOBACTAM 3.375 GM/ D5W 50 ML IV SCH ×6 (01:12→11:50)
[2016-11-28] MEDS: SUCRALFATE 1 GM/10 ML UDC GT SCH ×3 (01:13→11:50)
[2016-11-28] MEDS: DIPHENHYDRAMINE INJ 50 MG/ML VIAL IVP SCH ×3 (01:21→11:51)
--- NOTE | 2016-11-28 02:00 | NUR ---
Rounds Patient is resting in bed. Condition is stable.
[2016-11-28] MEDS: IPRATROPIUM/ALBUTEROL SULFATE 3 ML AMPUL.NEB INH SCH ×3 (03:35→11:51)
--- NOTE | 2016-11-28 04:00 | NUR ---
Rounds Patient is in bed. Condition is stable.
[2016-11-28 04:43] VITALS: BP 127/58; PULSE 69; RESP 18; TEMP 98.2; O2SAT 99
[2016-11-28] MEDS: LEVOTHYROXINE SODIUM 0.1 MG TABLET GT SCH (06:08)
--- NOTE | 2016-11-28 06:30 | NUR ---
Closing Note Patient is in stable condition. Report given to day shift RN. Spoke with Dr. Rodrigues regarding platelet of 35. No orders received. Arzola catheter is draining clear yellow urine. RFA 20g IV is running D51/2NS@40ml/hr. Tube feeding is Nutren Pulmonary running at 40ml/hr. No residuals throughout the shift.
[2016-11-28 06:40] LABS: BASOPHILS % (AUTO) 0.4 % (0.0-2.0); EOSINOPHILS # (AUTO) 0.1 K/uL (0.0-0.4); EOSINOPHILS % (AUTO) 2.6 % (0.0-4.0); HEMATOCRIT 29.8 % (36-54); HEMOGLOBIN 9.9 g/dL (14.0-18.0); LYMPHOCYTES # (AUTO) 0.4 K/uL (1.0-5.5); LYMPHOCYTES % (AUTO) 14.9 % (20.5-51.5); MEAN CORPUSCULAR HEMOGLOBIN 30 pg (27-31); MEAN CORPUSCULAR HGB CONC 33 % (32-36); MEAN CORPUSCULAR VOLUME 90 fL (79.0-98.0); MONOCYTES # (AUTO) 0.4 K/uL (0.0-1.0); MONOCYTES % (AUTO) 13.9 % (1.7-9.3); NEUTROPHILS # (AUTO) 2.1 K/uL (1.8-7.7); NEUTROPHILS % (AUTO) 68.2 % (40.0-70.0); RED BLOOD CELL COUNT(AUTO) 3.32 MIL/uL (4.2-6.2); RED CELL DISTRIBUTION WIDTH 18.3 % (9.0-15.0)
[2016-11-28 06:54] LABS: ALBUMIN 2.5 g/dL (3.4-4.8); CREATININE 0.45 mg/dL (0.55-1.30); INR 1.1 (0.80-1.20); POTASSIUM 3.8 mmol/L (3.5-5.1); PROTHROMBIN TIME 12.3 SECS (9.5-12.5); TOTAL BILIRUBIN 1.4 mg/dL (0.0-1.0); TOTAL PROTEIN, SERUM 7.4 g/dL (6.4-8.3)
[2016-11-28 06:56] LABS: PLATELET COUNT (AUTO) 35 K/uL (130-430)
[2016-11-28 08:30] VITALS: BP 90/56; PULSE 65; RESP 20; TEMP 97.2; O2SAT 100
--- NOTE | 2016-11-28 08:30 | NUR ---
Routine Patient resting quietly in bed with no respiratory distress noted. Patient stable.
[2016-11-28] MEDS: amLODIPine BESYLATE 10 MG TABLET GT SCH (09:00)
[2016-11-28] MEDS: THIAMINE HCL 100 MG TABLET GT SCH (09:02)
[2016-11-28] MEDS: levETIRAcetam 500 MG TABLET GT SCH (09:02)
[2016-11-28] MEDS: PANTOPRAZOLE SODIUM 40 MG/VIAL (PROTONIX) IVP SCH (09:03)
[2016-11-28] MEDS: CHLORHEXIDINE GLUCONATE 15 ML/DOSE, 480 ML MM SCH (09:03)
[2016-11-28] MEDS: CLOTRIMAZOLE/BETAMET DIPROP 15 GM TUBE TP SCH (09:03)
[2016-11-28] MEDS: LACOSAMIDE 100 MG TABLET GT SCH (09:03)
[2016-11-28] MEDS: PROPRANOLOL HCL 10 MG TABLET (INDERAL) PO SCH (09:15)
--- NOTE | 2016-11-28 09:15 | NUR ---
Assessment Patient sleepy, lethargic. Wound with dressing on left ear. Healed incision on top of head; right side concave due to previous head surgery. Lungs clear. Respiration even and unlabored. Padded siderails. Trach / T-bar at 5L. NSR per telemetry monitoring. Double lumen PlCC line in right upper arm, saline locked. 22 gauge peripheral IV in right forearm infusing D5 1/2 NS @ 40 ml with no redness or edema at site. G-tube with Nutren Pulmonary at 40 ml/hr with < 2 mls residual. Arzola catheter draining clear, yellow urine. Contracted bilateral upper and lower extremities. Dressing on bilateral buttocks. Dry scabs on both thighs. SCD's. Air mattress. Patient stable at this time.
[2016-11-28] MEDS ORDERED: SPIRONOLACTONE 25 MG TABLET (ALDACTONE) GT ONE (10:00)
--- NOTE | 2016-11-28 11:14 | NUR ---
DISCHARGE PLANNING DC order to SNF. Called [facility] spoke with Sylvain marinelli assigned to ISO room 34B RN to report [phone] bed available anytime. Called patient's daughter Monique [phone] left voice message requesting return call back. KAREN Abernathy made aware. 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 Placed transportation packet in nurses station. Addendum: 11/28/16 at 1136 by Page JACKSON Received call from patient daughter Monique who is agreeable with patient discharge to [facility] today. Monique requested to be called when patient is discharged from our facility and requested she be notified when patient is admitting to SNF.
--- NOTE | 2016-11-28 11:50 | NUR ---
Routine Scheduled medications given per order. Checked blood sugar: 140 mg/dl. Patient stable with brother, Raymond at bedside.
[2016-11-28 12:05] VITALS: BP 98/58; PULSE 61; RESP 17; TEMP 97; O2SAT 99
[2016-11-28 12:18] VITALS: BP 97/58; PULSE 67; RESP 18; TEMP 97.2; O2SAT 100
--- NOTE | 2016-11-28 12:50 | NUR ---
Called report Called report to Ron Bhakta RN at [facility] [phone]. Patient will go to Room 34B.
[2016-11-28 12:53] VITALS: BP 97/58; PULSE 67; RESP 18; TEMP 97.2; O2SAT 100
[2016-11-28] MEDS ORDERED: LEVOFLOXACIN 500 MG/D5W 100 ML IV ONE (13:00)
--- NOTE | 2016-11-28 13:20 | NUR ---
Routine Patient resting comfortably in bed with brother at bedside. Patient stable.
--- NOTE | 2016-11-28 13:30 | NUR ---
Transfer Patient transferred in stable condition via ambulance to [facility], Room 34B.
[2016-11-29] MEDS ORDERED: SPIRONOLACTONE 25 MG TABLET (ALDACTONE) GT SCH (09:00)
[2016-11-29] MEDS ORDERED: LEVOFLOXACIN 500 MG/D5W 100 ML IV SCH (09:00)
== END 2016-11-28 13:30 | DRG 720 ==
LOC: SED 07:08 → STU 07:59 → SIC 11-23 08:05 → STU 11-26 14:53
PROVIDERS: ADMIT Internal Medicine; ATTEND Internal Medicine
PROC: 30233L1 Transfusion of Nonautologous Fresh Plasma into Peripheral Vein, Percutaneous Approach (ICD-10-PCS; principal; 2016-11-22)
PROC: 30233N1 Transfusion of Nonautologous Red Blood Cells into Peripheral Vein, Percutaneous Approach (ICD-10-PCS; 2016-11-23)
PROC: 30233R1 Transfusion of Nonautologous Platelets into Peripheral Vein, Percutaneous Approach (ICD-10-PCS; 2016-11-23)
PROC: 30233K1 Transfusion of Nonautologous Frozen Plasma into Peripheral Vein, Percutaneous Approach (ICD-10-PCS; 2016-11-23)
PROC: 0W3P8ZZ Control Bleeding in Gastrointestinal Tract, Via Natural or Artificial Opening Endoscopic (ICD-10-PCS; 2016-11-24)
DX: A41.81 Sepsis due to Enterococcus (principal); G93.40 Encephalopathy, unspecified; G82.50 Quadriplegia, unspecified; E43 Unspecified severe protein-calorie malnutrition; J96.10 Chronic respiratory failure, unspecified whether with hypoxia or hypercapnia; D61.818 Other pancytopenia; I85.00 Esophageal varices without bleeding; K94.21 Gastrostomy hemorrhage; K25.4 Chronic or unspecified gastric ulcer with hemorrhage; D69.59 Other secondary thrombocytopenia; R13.10 Dysphagia, unspecified; E03.9 Hypothyroidism, unspecified; I10 Essential (primary) hypertension; K70.30 Alcoholic cirrhosis of liver without ascites; F10.20 Alcohol dependence, uncomplicated; R16.1 Splenomegaly, not elsewhere classified; B96.5 Pseudomonas (aeruginosa) (mallei) (pseudomallei) as the cause of diseases classified elsewhere; K21.9 Gastro-esophageal reflux disease without esophagitis; K31.89 Other diseases of stomach and duodenum; K72.90 Hepatic failure, unspecified without coma; N39.0 Urinary tract infection, site not specified; Z87.01 Personal history of pneumonia (recurrent); Z93.0 Tracheostomy status; Z93.1 Gastrostomy status; Z68.25 Body mass index [BMI] 25.0-25.9, adult; Z87.820 Personal history of traumatic brain injury; Z79.899 Other long term (current) drug therapy
CPT/HCPCS: 36415; 43239; 71010; 80048; 80053; 81000-TC; 82140-TC; 82962; 83605; 83690-TC; 83735-TC; 84100-TC; 84478-TC; 85007; 85018-TC; 85025; 85027; 85610-TC; 85730-TC; 86870; 86886; 86900; 86901; 86905; 86920; 87040-TC; 87081; 87086; 87186-TC; 93005; 94640; 94760; 96365; 96368; 99291; C9113; J0610; J0696; J1200; J1815; J1956; J2175; J2250; J2354; J2543; J3475; J3480; J7030; J7040; J7050; J7060; J7120; P9021; P9034; P9059